=== PATIENT | male | born 1960 | race Hispanic/Latino ===

== ENCOUNTER 2017-01-14 01:03 | Inpatient (IN) | payer MEDICARE, MEDICAID ==
[2017-01-14 01:04] VITALS: BMI 51.1
--- NOTE | 2017-01-14 01:49 | ED PDOC ---
HPI: Male Pain Time Seen by Provider: 01/14/17 01:11 Chief Complaint (Nursing): Abdominal Pain Chief Complaint (Provider): Dysuria History Per: Patient History/Exam Limitations: no limitations Onset/Duration Of Symptoms: Days (x3) Current Symptoms Are (Timing): Still Present Quality Of Discomfort: "Pain" Associated Symptoms: Chest Pain, Urinary Symptoms (urinary urgency), Other (SOB) . denies: Nausea, Vomiting, Diarrhea Additional Complaint(s): 56 year old male brought in by EMS presents to ED with complaints of dysuria x3 days and a past medical history of COPD, CHF, HTN, morbid obesity, chronic DVT, sleep apnea, and gout. (+) lower abdominal pain, urinary urgency, left sided chest pain, and SOB. (-) nausea, vomiting, or diarrhea. PCP: OMARI Past Medical History Reviewed: Historical Data, Nursing Documentation, Vital Signs Vital Signs: Last Vital Signs Temp 98.0 F 01/14/17 01:09 Pulse 92 H 01/14/17 01:09 Resp 16 01/14/17 01:09 BP Pulse Ox 98 01/14/17 01:09 - Medical History PMH: Asthma, Atrial Fibrillation, CAD, CHF, COPD, Deep Vein Thrombosis, Fractures, Pulmonary Embolism, Sleep Apnea Denies: No Chronic Diseases, Arthritis, HIV, HTN, Hypercholesterolemia, Hypothyroidism, Chronic Kidney Disease, Rheumatoid Arthritis - Surgical History Surgical History: CABG, Coronary Stent - Family History Family History: States: No Known Family Hx - Social History Current smoker - smoking cessation education provided: No Ex-Smoker (has not smoked in the last 12 months): No Alcohol: None Drugs: Denies - Immunization History Hx Tetanus Toxoid Vaccination: No Hx Influenza Vaccination: No Hx Pneumococcal Vaccination: No - Home Medications Home Medications: Ambulatory Orders Medication Instructions Recorded Albuterol 0.083% [Albuterol 0.083% 3 ml PO QID 01/14/17 Inhal Valeria (2.5 mg/3 ml) UD] Albuterol Sulfate [Proair 2 puff PO Q6 PRN 01/14/17 Respiclick] Allopurinol [Zyloprim] 100 mg PO DAILY 01/14/17 Aspirin [Aspirin] 81 mg PO DAILY 01/14/17 Bisoprolol [Zebeta] 10 mg PO DAILY 01/14/17 Clopidogrel [Plavix] 75 mg PO DAILY 01/14/17 Furosemide [Lasix] 40 mg PO DAILY 01/14/17 Furosemide [Lasix] 80 mg PO DAILY 01/14/17 Lisinopril [Zestril] 5 mg PO DAILY 01/14/17 Spironolactone [Aldactone] 25 mg PO BID 01/14/17 Tiotropium [place] Inhaler 1 puff PO DAILY 01/14/17 [Spiriva Inhalation Handihaler Device] - Allergies Allergies/Adverse Reactions: Allergies Allergy/AdvReac Type Severity Reaction Status Date / Time Penicillins Allergy URTICARIA Verified 01/26/16 08:18 Review of Systems ROS Statement: Except As Marked, All Systems Reviewed And Found Negative Cardiovascular: Positive for: Chest Pain (left sided) Respiratory: Positive for: Shortness of Breath Gastrointestinal: Positive for: Abdominal Pain (lower abdominal pain). Negative for: Nausea, Vomiting, Diarrhea Genitourinary Male: Positive for: Dysuria, Other ((+) urinary urgency) Physical Exam - Reviewed Nursing Documentation Reviewed: Yes Vital Signs Reviewed: Yes - Physical Exam Appears: Positive for: Non-toxic, No Acute Distress (Obese) Skin: Positive for: Normal Color, Warm, Dry Eye Exam: Positive for: Normal appearance ENT: Positive for: Normal ENT Inspection Cardiovascular/Chest: Positive for: Regular Rate, Rhythm. Negative for: Murmur Respiratory: Positive for: Crackles (slight crackles at bilateral bases). Negative for: Normal Breath Sounds, Respiratory Distress Gastrointestinal/Abdominal: Positive for: Normal Exam, Soft, Other (obese; protuberant umbilical hernia). Negative for: Tenderness Back: Positive for: Normal Inspection Extremity: Positive for: Normal ROM, Swelling (2+ edema to bilateral lower extremities), Other ((+)B?L venous stasis ulcers noted). Negative for: Deformity Neurologic/Psych: Positive for: Alert, Oriented. Negative for: Motor/Sensory Deficits - Laboratory Results Result Diagrams: 01/14/17 01:55 01/14/17 02:23 - ECG ECG: Positive for: Interpreted By Me, Viewed By Me ECG Rhythm: Positive for: Atrial Fibrillation, Right Bundle Branch Block ( incomplete), Nonspecific Changes (nonspecific ST changes) Rate: 87 O2 Sat by Pulse Oximetry: 98 (RA) Pulse Ox Interpretation: Normal - Radiology X-Ray: Interpreted by Me, Viewed By Me X-Ray Interpretation: Cardiomegaly, Other (Mild pulmonary vascular congestion) Medical Decision Making Medical Decision Makin Initial impression: urinary symptoms and chest pain in setting of known multiple risk factors Initial plan: * EKG * EtOH serum * Labs * UDrug screen * Lipase * Trop I * Zofran Inj 4mg IVP * Urine Cx * UA * Re-eval 0245 Patient will be admitted under [facility]. 0400 Patient is a patient of Dr. Meera Mirza. Will not be admitted under [facility] practice, but under Dr. Torrez (hospitalist). Scribe Attestation: Documented by Louann Enriquez acting as a scribe for Elvis Ferreira MD. Scribe Attestation: All medical record entries made by the Scribe were at my direction and personally dictated by me. I have reviewed the chart and agree that the record accurately reflects my personal performance of the history, physical exam, medical decision making, and the department course for this patient. I have also personally directed, reviewed, and agree with the discharge instructions and disposition. Disposition - Clinical Impression Clinical Impression: Chest pain - Patient ED Disposition Is Patient to be Admitted: Yes Discussed With : Gonzales Torrez Doctor Will See Patient In The: Hospital Counseled Patient/Family Regarding: Studies Performed, Diagnosis - Disposition Disposition Time: 02:43 Condition: FAIR - Pt Status Changed To: Hospital Disposition Of: Observation - POA Present On Arrival: None
[2017-01-14 02:09] LABS: BASO # 0.1 K/uL (0.0-0.2); BASO % 0.4 % (0.0-2.0); EOS % 0.1 % (0.0-4.0); HEMOGLOBIN 16.1 g/dL (12.0-18.0); LYMPH # 0.2 K/uL (1.0-4.3); LYMPH % 1.2 % (20.0-40.0); MEAN CELL VOLUME 97.3 fl (80.0-94.0); MEAN CORPUSCULAR HEMOGLOBIN 31.3 pg (27.0-31.0); MEAN CORPUSCULAR HGB CONC 32.2 g/dL (33.0-37.0); MEAN PLATELET VOLUME 9.6 fl (7.2-11.7); MONO % 5.1 % (0.0-10.0); NEUT # 18.3 K/uL (1.8-7.0); NEUT % 93.2 % (50.0-75.0); NRBC % 0.3 % (0.0-0.0); PLATELET COUNT 105 K/uL (130-400); RBC 5.16 Mil/uL (4.40-5.90); WHITE BLOOD COUNT 19.6 K/uL (4.8-10.8)
[2017-01-14] MEDS ORDERED: Albuterol-Ipratrop 3 mg / 0.5 (3 ml) UD INH STA (02:37)
[2017-01-14 03:06] LABS: ALB/GLOB RATIO 1.1 (1.0-2.1); ALBUMIN 3.7 g/dL (3.5-5.0)
[2017-01-14 03:37] LABS: TROPONIN I 0.046 ng/mL (0.00-0.120)
--- NOTE | 2017-01-14 04:06 | CP.PCM.HP ---
History of Present Illness - History of Present Illness History of Present Illness: CC: Chest pain This is a 56 y/o M with Mhx of known CAD, PVD, systolic CHF (EF: 25-35% in 2014), A-Fib, COPD, DVT/PE, and gout who presents to the hospital today with worsening SSCP radiating to R arm with some numbness/tingling, worsening SOB, and ?dysuria. States he always has SOB, but developed this CP this afternoon and it has gotten worse. Also states he has had 'foul smelling' and 'bloody' urine for days. Denies f/c/n/v/d. Rather poor historian otherwise. c/o diffuse itching, and c/o some swelling in his legs. 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 Fib with RVR, DVT x 2, s/p IVC filter placement in 2012, PE in the past, gout SHx: CABG, right femoral stent 2013, coronary stent placement 2010, IVC filter placement 2012 Allergies: PCN Medications: as per med rec Family Hx: Patient provides no relevant findings on review Social Hx: lives with family, 1 ppd tobacco x > 40 years, occ EtOH, regular MJ Present on Admission - Present on Admission Any Indicators Present on Admission: No Past Patient History - Infectious Disease Hx of Infectious Diseases: None - Past Medical History & Family History Past Medical History?: Yes - Past Social History Alcohol: None Drugs: Denies - CARDIAC Hx Atrial Fibrillation: Yes Hx Congestive Heart Failure: Yes Hx Hypercholesterolemia: No Hx Hypertension: No - PULMONARY Hx Asthma: Yes Hx Chronic Obstructive Pulmonary Disease (COPD): Yes Hx Pulmonary Embolism: Yes Hx Sleep Apnea: Yes - NEUROLOGICAL HX Cerebrovascular Accident: No - HEENT Hx HEENT Problems: No - RENAL Hx Chronic Kidney Disease: No - ENDOCRINE/METABOLIC Hx Hypothyroidism: No - HEMATOLOGICAL/ONCOLOGICAL Hx Human Immunodeficiency Virus (HIV): No - INTEGUMENTARY Hx Dermatological Problems: No - MUSCULOSKELETAL/RHEUMATOLOGICAL Hx Arthritis: No Hx Fractures: Yes Hx Rheumatoid Arthritis: No - GASTROINTESTINAL Hx Gastrointestinal Disorders: Yes (hernia) Other/Comment: Hernia - GENITOURINARY/GYNECOLOGICAL Hx Genitourinary Disorders: No - PSYCHIATRIC Hx Psychophysiologic Disorder: No Hx Substance Use: No - SURGICAL HISTORY Hx Coronary Artery Bypass Graft: Yes Hx Coronary Stent: Yes - ANESTHESIA Hx Anesthesia: Yes Hx Anesthesia Reactions: No Hx Malignant Hyperthermia: No Meds Allergies/Adverse Reactions: Allergies Allergy/AdvReac Type Severity Reaction Status Date / Time Penicillins Allergy URTICARIA Verified 01/26/16 08:18 Physical Exam - Constitutional Appears: Older Than Stated Age, Chronically Ill - Head Exam Head Exam: ATRAUMATIC, NORMOCEPHALIC - Eye Exam Eye Exam: EOMI, PERRL - ENT Exam ENT Exam: Mucous Membranes Moist - Neck Exam Neck exam: Positive for: Full Rom - Respiratory Exam Respiratory Exam: NORMAL BREATHING PATTERN Additional comments: very distant breath sounds - Cardiovascular Exam Cardiovascular Exam: Irregular Rhythm, +S1, +S2 - GI/Abdominal Exam GI & Abdominal Exam: Normal Bowel Sounds, Soft Additional comments: pronounced umbilical hernia - Extremities Exam Additional comments: Some b/l pedal edema (2+), chronic skin changes b/l LE - Neurological Exam Neurological exam: Alert, CN II-XII Intact, Oriented x3 - Psychiatric Exam Psychiatric exam: Normal Affect, Normal Mood - Skin Skin Exam: Dry, Warm Additional comments: scaling and excoriations all across chest, arms, back Results - Vital Signs Recent Vital Signs: Last Vital Signs Temp 98 F 01/14/17 03:41 Pulse 87 01/14/17 04:04 Resp 16 01/14/17 01:09 BP Pulse Ox 98 01/14/17 04:04 - Labs Result Diagrams: 01/14/17 01:55 01/14/17 02:23 - EKG Data EKG Interpreted by: Myself - EKG Data EKG comments: A fib, poor quality EKG; no obvious CHIN/D - Imaging and Cardiology Chest x-ray Status: Image reviewed by me (Possible vascular congestion, sternotomy wires) Assessment & Plan (1) Chest pain Assessment and Plan: 56 y/o male with known cardiac problems among other medical issues who comes in with CP/SOB. 1) CP/CAD -- r/o cardiac etiology -Tele/obs -Serial trops -AM EKG -Echo in AM -Consult Dr. Roberts (Cardiology) -Cont ASA, Plavix, SLNG, b-jean carlos 2) CHF -- As above, Lasix 40 mg IV x 1 now 3) A fib -- continue b-jean carlos, patient not on any anticoagulation currently 4) Elevated WC -- UA/Cx pending, no clear source of infection at this time; pending cultures; no antibiotics for now 5) AoCKI -- Appears to have Cr in mid-1s, now elevated; may be 2/2 vol overload -UA, Lytes, Cr -Lasix 40 mg IV x 1 now -Hold Yonathan/Arb and other diuretics for now 6) HTN -- Cont home medications 7) DVT PPx -- SQ Heparin Status: Acute (2) CAD (coronary artery disease) Status: Chronic (3) Atrial fibrillation Status: Chronic (4) Acute on chronic kidney failure Status: Acute (5) Elevated white blood cell count Status: Acute (6) CHF (congestive heart failure) Status: Chronic Priority: High (7) Hypertension Status: Chronic (8) Thrombocytopenia Status: Acute (9) Morbid obesity with BMI of 50.0-59.9, adult Status: Chronic (10) DVT prophylaxis Status: Acute
[2017-01-14 04:22] LABS: BANDS 3 % (0-2); LYMPHOCYTE 1 % (20-50); MONOCYTE 8 % (0-10); NEUTROPHIL 88 % (42-75); TOTAL CELLS COUNTED 100
[2017-01-14 04:23] LABS: ANISOCYTOSIS SLIGHT; PLATELET ESTIMATE MARKEDLY DECREASED (NORMAL); TEARDROP CELLS SLIGHT
[2017-01-14 04:24] LABS: ACANTHOCYTES SLIGHT; LARGE PLATELETS PRESENT
[2017-01-14] MEDS ORDERED: ALBUTEROL SULFATE PO PRN (04:38)
[2017-01-14] MEDS ORDERED: Albuterol HFA 90 mcg/actuation (8 g) INH PRN (04:55)
[2017-01-14] MEDS ORDERED: levoFLOXacin 500 mg in D5W 500 MG/100 ML BAG IVPB STA (05:24)
[2017-01-14] MEDS ORDERED: Sodium Chloride 0.9% 250 ML IV SCH (05:30)
[2017-01-14] MEDS: Hydrocortisone 1% Oint TOP SCH ×2 (08:55→16:32)
[2017-01-14] MEDS: Tiotropium 18 mcg Cap For Inhalation INH SCH (08:55)
[2017-01-14 10:52] LABS: TROPONIN I 0.043 ng/mL (0.00-0.120)
--- NOTE | 2017-01-14 11:13 | CP.PCM.CON ---
History of Present Illness - History of Present Illness History of Present Illness: This patient who is 56 years old I was called to see him for abnormal kidney function. Patient was admitted with atypical chest pain also he has multitude of complicated past medical history related to multiple cardiac stenting and also stenting in the right leg with filter placement peripherovascular disease and right foot ulcer. Patient is being follow-up by wound care twice a week with long history of hypertension and obesity pulmonary emboli among other things MHx: CAD/PVD, CHF, A. Fib with RVR, DVT x 2, s/p IVC filter placement in 2012, PE in the past, gout , right femoral stent 2013, coronary stent placement 2010, social history not contributary Review of Systems - Constitutional Constitutional: absent: Chills - EENT Nose/Mouth/Throat: absent: Nasal Congestion - Cardiovascular Cardiovascular: Chest Pain, Dyspnea, Leg Edema - Respiratory Respiratory: Dyspnea on Exertion - Gastrointestinal Gastrointestinal: absent: Abdominal Pain - Genitourinary Genitourinary: Dysuria, Nocturia - Musculoskeletal Musculoskeletal: Abnormal Gait - Neurological Neurological: As Per HPI Past Patient History - Infectious Disease Hx of Infectious Diseases: None - Past Medical History & Family History Past Medical History?: Yes - Past Social History Smoking Status: Heavy Smoker > 10 Cigarettes Daily - CARDIAC Hx Atrial Fibrillation: Yes Hx Congestive Heart Failure: Yes Hx Hypercholesterolemia: No Hx Hypertension: No - PULMONARY Hx Asthma: Yes Hx Chronic Obstructive Pulmonary Disease (COPD): Yes Hx Pulmonary Embolism: Yes Hx Sleep Apnea: Yes - NEUROLOGICAL HX Cerebrovascular Accident: No - HEENT Hx HEENT Problems: No - RENAL Hx Chronic Kidney Disease: No - ENDOCRINE/METABOLIC Hx Hypothyroidism: No - HEMATOLOGICAL/ONCOLOGICAL Hx Human Immunodeficiency Virus (HIV): No - INTEGUMENTARY Hx Dermatological Problems: No - MUSCULOSKELETAL/RHEUMATOLOGICAL Hx Falls: Yes Hx Unsteady Gait: Yes - GASTROINTESTINAL Hx Gastrointestinal Disorders: Yes (hernia) Other/Comment: Hernia - GENITOURINARY/GYNECOLOGICAL Hx Genitourinary Disorders: No - PSYCHIATRIC Hx Substance Use: Yes (use marijuana) - SURGICAL HISTORY Hx Coronary Artery Bypass Graft: Yes Hx Coronary Stent: Yes - ANESTHESIA Hx Anesthesia: Yes Hx Anesthesia Reactions: No Hx Malignant Hyperthermia: No Meds Allergies/Adverse Reactions: Allergies Allergy/AdvReac Type Severity Reaction Status Date / Time Penicillins Allergy URTICARIA Verified 01/26/16 08:18 - Medications Medications: Current Medications Acetaminophen (Tylenol 325mg Tab) 650 mg PO Q6 PRN PRN Reason: Pain, Mild (1-3) Acetaminophen (Tylenol 325mg Tab) 650 mg PO Q6 PRN PRN Reason: Fever >100.4 F Albuterol (Ventolin Hfa 90 Mcg/Actuation (8 G)) 2 puff INH RQ6 PRN PRN Reason: Shortness of Breath Allopurinol (Zyloprim) 100 mg PO DAILY [facility] Last Admin: 01/14/17 08:56 Dose: 100 mg Aspirin (Aspirin) 325 mg PO DAILY [facility] Last Admin: 01/14/17 09:00 Dose: 325 mg Clopidogrel Bisulfate (Plavix) 75 mg PO DAILY [facility] Last Admin: 01/14/17 08:55 Dose: 75 mg Heparin Sodium (Porcine) (Heparin) 5,000 units SC Q8 [facility] PRN Reason: Protocol Last Admin: 01/14/17 08:55 Dose: 5,000 units Hydrocortisone (Cortizone 1% Oint) 1 applic TOP BID [facility] Last Admin: 01/14/17 08:55 Dose: 1 appl Sodium Chloride (Sodium Chloride 0.9%) 250 mls @ 250 mls/hr IV .Q1H [facility] Last Admin: 01/14/17 05:33 Dose: 250 mls/hr Nitroglycerin (Nitrostat Sl Tab) 0.4 mg SL Q5M PRN PRN Reason: chest pain Tiotropium [place] (Spiriva) 18 mcg INH DAILY [facility] Last Admin: 01/14/17 08:55 Dose: 18 mcg Physical Exam - Constitutional Appears: No Acute Distress Additional comments: extremely obese - ENT Exam ENT Exam: Mucous Membranes Moist - Respiratory Exam Respiratory Exam: Rhonchi. absent: Chest Wall Tenderness - Cardiovascular Exam Cardiovascular Exam: absent: JVD, Rubs - GI/Abdominal Exam GI & Abdominal Exam: Distended - Extremities Exam Extremities exam: Negative for: calf tenderness - Back Exam Back exam: absent: CVA tenderness (L), CVA tenderness (R) - Neurological Exam Neurological exam: Alert Results - Vital Signs Recent Vital Signs: Last Vital Signs Temp 98.3 F 01/14/17 08:00 Pulse 99 H 01/14/17 08:00 Resp 20 01/14/17 08:00 BP 116/44 L 01/14/17 08:00 Pulse Ox 95 01/14/17 08:00 - Labs Result Diagrams: 01/14/17 01:55 01/14/17 02:23 Labs: Laboratory Results - last 24 hr 01/14/17 01/14/17 04:11 09:55 Lactic Acid 2.8 H Troponin I 0.0430 TSH 3rd Generation 2.57 Assessment & Plan (1) Acute on chronic kidney failure Assessment and Plan: Rule out acute kidney injury superimposed on perhaps chronic kidney disease. Also patient complaining of dysuria and burning sensation to rule out urinary tract infection My recommendation to get stat urinalysis and Spot urine for protein and creatinine to see if he has a proteinuria. Urine culture because of the symptomatology We will cross adductor ultrasound of the kidney if possible however because see his obesity may be difficult to do so We will keep monitoring we will get serum PTH level and phosphorus Status: Acute (2) Chest pain Status: Acute
[2017-01-14 11:27] LABS: SQUAMOUS EPITHIAL 1 /hpf (0-5); URINE BACTERIA RARE (<OCC); URINE BILIRUBIN NEGATIVE (NEGATIVE); URINE BLOOD NEGATIVE (NEGATIVE); URINE CLARITY SLIGHTY-CLOUDY (Clear); URINE COLOR AMBER (YELLOW); URINE GLUCOSE (UA) NEG (Normal); URINE LEUKOCYTE ESTERASE NEG Leu/uL (Negative); URINE NITRATE NEGATIVE (NEGATIVE); URINE PROTEIN 30 mg/dL (NEGATIVE)
[2017-01-14 11:51] LABS: BARBITURATES, UR NEGATIVE (NEGATIVE); BENZODIAZEPINES, UR NEGATIVE (NEGATIVE); OPIATES, UR POSITIVE (NEGATIVE); PHENCYCLIDINE, UR NEGATIVE (NEGATIVE)
--- NOTE | 2017-01-14 12:45 | RAD ---
HISTORY: Chest pain. COMPARISON: 01/30/2016 FINDINGS: LUNGS: No active pulmonary disease. PLEURA: No significant pleural effusion identified, no pneumothorax apparent. CARDIOVASCULAR: Cardiomegaly without acute congestive heart failure OSSEOUS STRUCTURES: No significant abnormalities. VISUALIZED UPPER ABDOMEN: Normal. OTHER FINDINGS: None. IMPRESSION: No active disease. No significant interval change compared to the prior examination(s).
--- NOTE | 2017-01-14 15:08 | CP.PCM.CON ---
History of Present Illness - History of Present Illness History of Present Illness: 56 y/o male with PMHx of CAD/PVD, CHF, A. Fib with RVR, DVT x 2, s/p IVC filter placement in 2012, PE, gout seen at bedside complaining of severe pain in his feet b/l. Pt states that he has ulceration on his feet and ankle. Pt agrees to having these ulcers for very long time. Pt states that his feet feel inflamed and they are very painful. Pt states that he came to the hospital because he was having hard time breathing and had chest pain. Pt states that he has a wound care nurse come home to dress the wounds daily. Pt states that he last saw his rn international Dr. Parr about a year ago. Pt states that he has really bad circulation in his feet and is currently seeing a doctor for it. Pt denies of any recent F/N/V/C. PMHx: CAD/PVD, CHF, A. Fib with RVR, DVT x 2, s/p IVC filter placement in 2012, PE in the past, gout PSHx: CABG, right femoral stent 2013, coronary stent placement 2010, IVC filter placement 2012 SH: 1 PPD tobacco for more than 40 years, regular marijuana, occasional EtOH Allergies: PCN Review of Systems - Constitutional Constitutional: As Per HPI Past Patient History - Infectious Disease Hx of Infectious Diseases: None - Past Medical History & Family History Past Medical History?: Yes - Past Social History Smoking Status: Heavy Smoker > 10 Cigarettes Daily - CARDIAC Hx Atrial Fibrillation: Yes Hx Congestive Heart Failure: Yes Hx Hypercholesterolemia: No Hx Hypertension: No - PULMONARY Hx Asthma: Yes Hx Chronic Obstructive Pulmonary Disease (COPD): Yes Hx Pulmonary Embolism: Yes Hx Sleep Apnea: Yes - NEUROLOGICAL HX Cerebrovascular Accident: No - HEENT Hx HEENT Problems: No - RENAL Hx Chronic Kidney Disease: No - ENDOCRINE/METABOLIC Hx Hypothyroidism: No - HEMATOLOGICAL/ONCOLOGICAL Hx Human Immunodeficiency Virus (HIV): No - INTEGUMENTARY Hx Dermatological Problems: No - MUSCULOSKELETAL/RHEUMATOLOGICAL Hx Falls: Yes Hx Unsteady Gait: Yes - GASTROINTESTINAL Hx Gastrointestinal Disorders: Yes (hernia) Other/Comment: Hernia - GENITOURINARY/GYNECOLOGICAL Hx Genitourinary Disorders: No - PSYCHIATRIC Hx Substance Use: Yes (use marijuana) - SURGICAL HISTORY Hx Coronary Artery Bypass Graft: Yes Hx Coronary Stent: Yes - ANESTHESIA Hx Anesthesia: Yes Hx Anesthesia Reactions: No Hx Malignant Hyperthermia: No Meds Allergies/Adverse Reactions: Allergies Allergy/AdvReac Type Severity Reaction Status Date / Time Penicillins Allergy URTICARIA Verified 01/26/16 08:18 - Medications Medications: Current Medications Acetaminophen (Tylenol 325mg Tab) 650 mg PO Q6 PRN PRN Reason: Pain, Mild (1-3) Last Admin: 01/14/17 13:23 Dose: 650 mg Acetaminophen (Tylenol 325mg Tab) 650 mg PO Q6 PRN PRN Reason: Fever >100.4 F Albuterol (Ventolin Hfa 90 Mcg/Actuation (8 G)) 2 puff INH RQ6 PRN PRN Reason: Shortness of Breath Last Admin: 01/14/17 12:32 Dose: 2 puff Allopurinol (Zyloprim) 100 mg PO DAILY [facility] Last Admin: 01/14/17 08:56 Dose: 100 mg Aspirin (Aspirin) 325 mg PO DAILY [facility] Last Admin: 01/14/17 09:00 Dose: 325 mg Clopidogrel Bisulfate (Plavix) 75 mg PO DAILY [facility] Last Admin: 01/14/17 08:55 Dose: 75 mg Collagenase (Santyl) 1 applic TOP DAILY [facility] Heparin Sodium (Porcine) (Heparin) 5,000 units SC Q8 FACUNDO PRN Reason: Protocol Last Admin: 01/14/17 08:55 Dose: 5,000 units Hydrocortisone (Cortizone 1% Oint) 1 applic TOP BID [facility] Last Admin: 01/14/17 08:55 Dose: 1 appl Sodium Chloride (Sodium Chloride 0.9%) 250 mls @ 250 mls/hr IV .Q1H [facility] Last Admin: 01/14/17 05:33 Dose: 250 mls/hr Nitroglycerin (Nitrostat Sl Tab) 0.4 mg SL Q5M PRN PRN Reason: chest pain Tiotropium [place] (Spiriva) 18 mcg INH DAILY [facility] Last Admin: 01/14/17 08:55 Dose: 18 mcg Physical Exam - Constitutional Appears: Well, Toxic, No Acute Distress - Extremities Exam Additional comments: VASC: DP/PT pulses are non-palpable, [employer]OFESSIONAL: > 4 sec to all digits, TG: cool to cold, non-pitting edema with skin tenting noted to distal leg and feet b/l DERM: superficial ulcer on the dorsum of the R foot as well as on the posterior medial aspect of the R heel and ankle, no active drainage, no purulence, no malodor, no probe to bone, no undermining, no tunneling. erythema noted on distal leg as well as dorsum of the foot b/l NEURO: Protective sensation grossly diminished ORTHO: pain on active ROM of the b/l extremity - Neurological Exam Neurological exam: Alert, Oriented x3 - Psychiatric Exam Psychiatric exam: Normal Affect, Normal Mood Results - Vital Signs Recent Vital Signs: Last Vital Signs Temp 98.7 F 01/14/17 12:14 Pulse 80 01/14/17 12:14 Resp 18 01/14/17 12:14 BP 94/64 L 01/14/17 12:14 Pulse Ox 93 L 01/14/17 12:46 - Labs Result Diagrams: 01/14/17 01:55 01/14/17 02:23 Labs: Laboratory Results - last 24 hr 01/14/17 01/14/17 01/14/17 04:11 06:00 09:55 Lactic Acid 2.8 H Phosphorus 4.6 H Troponin I 0.0430 TSH 3rd Generation 2.57 Urine Color Urine Clarity Urine pH Ur Specific [place] Urine Protein Urine Glucose (UA) Urine Ketones Urine Blood Urine Nitrate Urine Bilirubin Urine Urobilinogen Ur Leukocyte Esterase Urine RBC (Auto) Urine Microscopic WBC Ur Squamous Epith Cells Urine Bacteria Hyaline Casts Ur Random Creatinine U Random Total Protein Ur Random Sodium Ur Random Potassium Urine Opiates Screen Urine Methadone Screen Ur Barbiturates Screen Ur Phencyclidine Scrn Ur Amphetamines Screen U Benzodiazepines Scrn U Oth Cocaine Metabols U Cannabinoids Screen 01/14/17 01/14/17 01/14/17 11:00 11:00 11:00 Lactic Acid Phosphorus Troponin I TSH 3rd Generation Urine Color Urine Clarity Urine pH Ur Specific [place] Urine Protein Urine Glucose (UA) Urine Ketones Urine Blood Urine Nitrate Urine Bilirubin Urine Urobilinogen Ur Leukocyte Esterase Urine RBC (Auto) Urine Microscopic WBC Ur Squamous Epith Cells Urine Bacteria Hyaline Casts Ur Random Creatinine 142.2 U Random Total Protein Ur Random Sodium 46 Ur Random Potassium 49.5 Urine Opiates Screen Positive H Urine Methadone Screen Negative Ur Barbiturates Screen Negative Ur Phencyclidine Scrn Negative Ur Amphetamines Screen Negative U Benzodiazepines Scrn Negative U Oth Cocaine Metabols Negative U Cannabinoids Screen Positive H 01/14/17 01/14/17 11:00 11:00 Lactic Acid Phosphorus Troponin I TSH 3rd Generation Urine Color [place] Urine Clarity Slighty-cloudy Urine pH 5.0 Ur Specific [place] 1.014 Urine Protein 30 Urine Glucose (UA) Neg Urine Ketones Negative Urine Blood Negative Urine Nitrate Negative Urine Bilirubin Negative Urine Urobilinogen 4.0 Ur Leukocyte Esterase Neg Urine RBC (Auto) 8 H Urine Microscopic WBC 5 Ur Squamous Epith Cells 1 Urine Bacteria Rare Hyaline Casts 3-5 H Ur Random Creatinine U Random Total Protein 52.0 H Ur Random Sodium Ur Random Potassium Urine Opiates Screen Urine Methadone Screen Ur Barbiturates Screen Ur Phencyclidine Scrn Ur Amphetamines Screen U Benzodiazepines Scrn U Oth Cocaine Metabols U Cannabinoids Screen Assessment & Plan - Assessment and Plan (Free Text) Assessment: 56 y/o male seen at bedside for pain in his legs and feet secondary to superficial ulcer and PVD Plan: Pt evaluated and chart reviewed Pt discussed in details with attending Dr. Parr Labs and vitals reviewed (afebrile, WBC @ 19.6) ID consult placed for IV abx recommendations Dressing changed using adaptic, DSD, kurlix Rx: Torsten ordered Plan to take wound culture during next dressing change due to painful procedure Podiatry to follow while patient is in house Thank you for the podiatry consult - Date & Time Date: 01/14/17 Time: 15:17
--- NOTE | 2017-01-14 17:58 | CARD ---
APPROVED REPORT EKG Measurement Heart [id number] <Conclusion> Atrial fibrillation Incomplete right bundle branch block Possible Right ventricular hypertrophy Nonspecific ST abnormality Abnormal ECG
--- NOTE | 2017-01-14 20:06 | CP.PCM.CON ---
History of Present Illness - History of Present Illness History of Present Illness: I was asked to evalaute patient by the primary team. Patient is a 56 year old female with a history of HTN, CAD, morbid obesity, PAD who presents with fever and weakness. The patient states symptoms began one week ago. He has noted pain of the feet The patient denies chest pain. The patient is essentially homebound, and has noted that his blood pressue has been low. Review of Systems - Constitutional Constitutional: Fatigue, Fever, Lethargy, Weakness - EENT Eyes: absent: As Per HPI, Blind Spots, Blurred Vision, Change in Vision, Decreased Night Vision, Diplopia, Discharge, Dry Eye, Exophthalmos, Floaters, Irritation, Itchy Eyes, Loss of Peripheral Vision, Pain, Photophobia, Requires Corrective Lenses, Sees Flashes, Spots in Vision, Tunnel Vision, Other Visual Disturbances, Loss of Vision, Other Ears: absent: As Per HPI, Decreased Hearing, Ear Discharge, Ear Pain, Tinnitus, Abnormal Hearing, Disequilibrium, Dizziness, Other Nose/Mouth/Throat: absent: As Per HPI, Epistaxis, Nasal Congestion, Nasal Discharge, Nasal Obstruction, Nasal Trauma, Nose Pain, Post Nasal Drip, Sinus Pain, Sinus Pressure, Bleeding Gums, Change in Voice, Dental Pain, Dry Mouth, Dysphagia, Halitosis, Hoarsness, Lip Swelling, Mouth Lesions, Mouth Pain, Odynophagia, Sore Throat, Throat Swelling, Tongue Swelling, Facial Pain, Neck Pain, Neck Mass, Other - Cardiovascular Cardiovascular: Leg Ulcers, Lightheadedness, Pedal Edema - Respiratory Respiratory: absent: As Per HPI, Cough, Dyspnea, Hemoptysis, Dyspnea on Exertion , Wheezing, Snoring, Stridor, Pain on Inspiration, Chest Congestion, Excessive Mucous Production, Change in Mucous Color, Pain with Coughing, Other - Gastrointestinal Gastrointestinal: absent: As Per HPI, Abdominal Pain, Belching, Bloating, Change in Bowel Habits, Change in Stool Character, Coffee Ground Emesis, Constipation, Cramping, Diarrhea, Dyspepsia, Dysphagia, Early Satiety, Excessive Flatus, Fecal Incontinence, Heartburn, Hematemesis, Hematochezia, Loose Stools, Melena, Nausea, Odynophagia, Temesmus, Vomiting, Other - Genitourinary Genitourinary: absent: As Per HPI, Change in Urinary Stream, Difficulty Urinating, Dysuria, Flank Pain, Hematuria, Pyuria, Nocturia, Urinary Incontinence, Urinary Frequency, Urinary Hesitance, Urinary Urgency, Voiding Freq/Small Amts, Freq UTI, Hx Renal/Bladder Calculi, Hx /Renal Surgery, Bladder Distension, Other - Musculoskeletal Musculoskeletal: absent: As Per HPI, Abnormal Gait, Arthralgias, Atrophy, Back Pain, Deformity, Joint Swelling, Limited Range of Motion, Loss of Height, Muscle Cramps, Muscle Weakness, Myalgias, Neck Pain, Numbness, Radiating Pain into Limb, Stiffness, Tingling, Other - Integumentary Integumentary: Skin Ulcer - Neurological Neurological: absent: As Per HPI, Abnormal Gait, Abnormal Hearing, Abnormal Movements, Abnormal Speech, Behavioral Changes, Burning Sensations, Confusion, Convulsions, Disequilibrium, Dizziness, Numbness, Focal Weakness, Frequent Falls , Headaches, Lack of Coordination, Loss of Vision, Memory Loss, Paresthesias, Radicular Pain, Restless Legs, Sensory Deficit, Syncope, Tingling, Tremor, Vertigo, Weakness, Other Visual Disturbances, Other - Psychiatric Psychiatric: absent: As Per HPI, Abnormal Sleep Pattern, Anhedonia, Anxiety, Auditory Hallucinations, Behavioral Changes, Change in Appetite, Change in Libido, Confusion, Depression, Difficulty Concentrating, Hallucinations, Homicidal Ideation, Hopelessness, Irritability, Memory Loss, Mood Swings, Panic Attacks, Paranoia, Suicidal Ideation, Visual Hallucinations, Tactile Hallucinations, Other - Endocrine Endocrine: absent: As Per HPI, Change in Body Appearance, Change in Libido, Cold Intolorance, Deepening of Voice, Excessive Sweating, Fatigue, Flushing, Heat Intolorance, Increase in Ring/Shoe/Hat Size, Palpitations, Polydipsia, Polyphagia, Polyuria, Other - Hematologic/Lymphatic Hematologic: absent: As Per HPI, Easy Bleeding, Easy Bruising, Lymphadenopathy, Other Past Patient History - Infectious Disease Hx of Infectious Diseases: None - Past Medical History & Family History Past Medical History?: Yes - Past Social History Smoking Status: Heavy Smoker > 10 Cigarettes Daily - CARDIAC Hx Atrial Fibrillation: Yes Hx Congestive Heart Failure: Yes Hx Hypercholesterolemia: No Hx Hypertension: No - PULMONARY Hx Asthma: Yes Hx Chronic Obstructive Pulmonary Disease (COPD): Yes Hx Pulmonary Embolism: Yes Hx Sleep Apnea: Yes - NEUROLOGICAL HX Cerebrovascular Accident: No - HEENT Hx HEENT Problems: No - RENAL Hx Chronic Kidney Disease: No - ENDOCRINE/METABOLIC Hx Hypothyroidism: No - HEMATOLOGICAL/ONCOLOGICAL Hx Human Immunodeficiency Virus (HIV): No - INTEGUMENTARY Hx Dermatological Problems: No - MUSCULOSKELETAL/RHEUMATOLOGICAL Hx Falls: Yes Hx Unsteady Gait: Yes - GASTROINTESTINAL Hx Gastrointestinal Disorders: Yes (hernia) Other/Comment: Hernia - GENITOURINARY/GYNECOLOGICAL Hx Genitourinary Disorders: No - PSYCHIATRIC Hx Substance Use: Yes (use marijuana) - SURGICAL HISTORY Hx Coronary Artery Bypass Graft: Yes Hx Coronary Stent: Yes - ANESTHESIA Hx Anesthesia: Yes Hx Anesthesia Reactions: No Hx Malignant Hyperthermia: No Meds Allergies/Adverse Reactions: Allergies Allergy/AdvReac Type Severity Reaction Status Date / Time Penicillins Allergy URTICARIA Verified 01/26/16 08:18 - Medications Medications: Current Medications Acetaminophen (Tylenol 325mg Tab) 650 mg PO Q6 PRN PRN Reason: Pain, Mild (1-3) Last Admin: 01/14/17 13:23 Dose: 650 mg Acetaminophen (Tylenol 325mg Tab) 650 mg PO Q6 PRN PRN Reason: Fever >100.4 F Albuterol (Ventolin Hfa 90 Mcg/Actuation (8 G)) 2 puff INH RQ6 PRN PRN Reason: Shortness of Breath Last Admin: 01/14/17 12:32 Dose: 2 puff Allopurinol (Zyloprim) 100 mg PO DAILY [facility] Last Admin: 01/14/17 08:56 Dose: 100 mg Aspirin (Aspirin) 325 mg PO DAILY [facility] Last Admin: 01/14/17 09:00 Dose: 325 mg Clopidogrel Bisulfate (Plavix) 75 mg PO DAILY [facility] Last Admin: 01/14/17 08:55 Dose: 75 mg Collagenase (Santyl) 1 applic TOP DAILY [facility] Heparin Sodium (Porcine) (Heparin) 5,000 units SC Q8 FACUNDO PRN Reason: Protocol Last Admin: 01/14/17 16:33 Dose: 5,000 units Hydrocortisone (Cortizone 1% Oint) 1 applic TOP BID [facility] Last Admin: 01/14/17 16:32 Dose: 1 appl Sodium Chloride (Sodium Chloride 0.9%) 250 mls @ 250 mls/hr IV .Q1H [facility] Last Admin: 01/14/17 05:33 Dose: 250 mls/hr Clindamycin Phosphate 600 mg/ (Sodium Chloride) 54 mls @ 54 mls/hr IVPB Q8 [facility] Last Admin: 01/14/17 16:35 Dose: 54 mls/hr Nitroglycerin (Nitrostat Sl Tab) 0.4 mg SL Q5M PRN PRN Reason: chest pain Tiotropium [place] (Spiriva) 18 mcg INH DAILY [facility] Last Admin: 01/14/17 08:55 Dose: 18 mcg Physical Exam - Constitutional Appears: Chronically Ill - Eye Exam Eye Exam: Normal appearance - ENT Exam ENT Exam: Mucous Membranes Moist - Neck Exam Neck exam: Positive for: Full Rom - Respiratory Exam Respiratory Exam: Decreased Breath Sounds - Cardiovascular Exam Cardiovascular Exam: REGULAR RHYTHM - GI/Abdominal Exam GI & Abdominal Exam: Normal Bowel Sounds - Rectal Exam Rectal Exam: Deferred - Extremities Exam Extremities exam: Positive for: pedal edema, tenderness - Back Exam Back exam: NORMAL INSPECTION - Neurological Exam Neurological exam: Alert, Oriented x3 - Psychiatric Exam Psychiatric exam: Normal Affect - Skin Skin Exam: Normal Color Results - Vital Signs Recent Vital Signs: Last Vital Signs Temp 97.6 F 01/14/17 19:56 Pulse 92 H 01/14/17 19:56 Resp 20 01/14/17 19:56 BP 140/123 H 01/14/17 16:01 Pulse Ox 94 L 01/14/17 19:56 - Labs Result Diagrams: 01/15/17 06:30 01/15/17 06:30 Labs: Laboratory Results - last 24 hr 01/14/17 18:55 Troponin I 0.0700 - EKG Data EKG Interpreted by: Myself EKG shows normal: Sinus rhythm Assessment & Plan (1) Acute on chronic kidney failure Assessment and Plan: unclear if related to hypoperfusion or sepsis. Renal follow up Status: Acute (2) Chronic deep venous thrombosis Assessment and Plan: previously on chronic anticoagulant therapy Status: Acute (3) CAD (coronary artery disease) Assessment and Plan: no current angina Status: Chronic
--- NOTE | 2017-01-14 20:40 | CP.PCM.PN ---
Subjective - Date & Time of Evaluation Date of Evaluation: 01/14/17 Time of Evaluation: 20:38 - Subjective Subjective: I D NOTE PATIENT KNOWN TO ME HAVE ADDED GENTAMICIN TO RX FULL NOTE TO FOLLOW Objective - Vital Signs/Intake and Output Vital Signs (last 24 hours): Temp Pulse Resp BP Pulse Ox 97.6 F 92 H 20 140/123 H 94 L 01/14/17 19:56 01/14/17 19:56 01/14/17 19:56 01/14/17 16:01 01/14/17 19:56 - Medications Medications: Current Medications Acetaminophen (Tylenol 325mg Tab) 650 mg PO Q6 PRN PRN Reason: Pain, Mild (1-3) Last Admin: 01/14/17 13:23 Dose: 650 mg Acetaminophen (Tylenol 325mg Tab) 650 mg PO Q6 PRN PRN Reason: Fever >100.4 F Albuterol (Ventolin Hfa 90 Mcg/Actuation (8 G)) 2 puff INH RQ6 PRN PRN Reason: Shortness of Breath Last Admin: 01/14/17 12:32 Dose: 2 puff Allopurinol (Zyloprim) 100 mg PO DAILY [facility] Last Admin: 01/14/17 08:56 Dose: 100 mg Aspirin (Aspirin) 325 mg PO DAILY [facility] Last Admin: 01/14/17 09:00 Dose: 325 mg Clopidogrel Bisulfate (Plavix) 75 mg PO DAILY [facility] Last Admin: 01/14/17 08:55 Dose: 75 mg Collagenase (Santyl) 1 applic TOP DAILY [facility] Heparin Sodium (Porcine) (Heparin) 5,000 units SC Q8 FACUNDO PRN Reason: Protocol Last Admin: 01/14/17 16:33 Dose: 5,000 units Hydrocortisone (Cortizone 1% Oint) 1 applic TOP BID [facility] Last Admin: 01/14/17 16:32 Dose: 1 appl Sodium Chloride (Sodium Chloride 0.9%) 250 mls @ 250 mls/hr IV .Q1H [facility] Last Admin: 01/14/17 05:33 Dose: 250 mls/hr Clindamycin Phosphate 600 mg/ (Sodium Chloride) 54 mls @ 54 mls/hr IVPB Q8 [facility] Last Admin: 01/14/17 16:35 Dose: 54 mls/hr Gentamicin Sulfate/Sodium Chloride (Gentamicin 60mg/50ml Ns) 60 mg in 50 mls @ 50 mls/hr IVPB Q24H [facility] Nitroglycerin (Nitrostat Sl Tab) 0.4 mg SL Q5M PRN PRN Reason: chest pain Tiotropium [place] (Spiriva) 18 mcg INH DAILY [facility] Last Admin: 01/14/17 08:55 Dose: 18 mcg
[2017-01-14] MEDS ORDERED: Gentamicin 60mg/50ml NS 60 MG/50 ML BAG IVPB SCH (20:45)
[2017-01-14] MEDS ORDERED: Sodium Chloride 0.9% 1,000 ML IV SCH (21:15)
[2017-01-15] MEDS ORDERED: Albuterol 0.083% Inhal Sol (2.5 mg/3 mL) UD INH ONE (04:59)
[2017-01-15] MEDS ORDERED: Albuterol-Ipratrop 3 mg / 0.5 (3 ml) UD ONE (05:00)
[2017-01-15] MEDS ORDERED: Sodium Chloride 0.9% 500 ML IV ONE (05:09)
[2017-01-15] MEDS ORDERED: Albuterol 0.083% Inhal Sol (2.5 mg/3 mL) UD INH PRN (05:09)
--- NOTE | 2017-01-15 05:35 | PCM.RRTMUL ---
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 - Vital Signs Pulse Rate:: 87 I.Reason for FOREST PATROLMAN - A) Acute Change in Patient: (Select all that apply): Acute change in SBP below (dyspnea with BP of 70/40) - A) Initial Vital Signs: Blood Pressure: 70/30 Pulse Rate: 87 Respiratory Rate: 24 O2 Sat by Pulse Oximetry: 98 - B) Neurological Status (Select all that apply): Alert, Responsive, Oriented, Follows Commands - C) Respiratory Oxygen Delivery Method: Nasal Cannula @L/min (4/L min) - Constitutional Appears: No Acute Distress - Head Head Exam: ATRAUMATIC, NORMOCEPHALIC - Respiratory Exam Respiratory Exam: Clear to Ausculation Bilateral - Cardiovascular Exam Cardiovascular Exam: REGULAR RHYTHM - GI/Abdominal Exam GI & Abdominal Exam: absent: Distended, Tenderness - Neurological Exam Neurological Exam: Alert, Awake - Extremities Exam Extremities Exam: absent: Calf Tenderness Plan - A. End of FOREST PATROLMAN Vital Signs: Blood Pressure: 90/56 Pulse Rate: 86 Respiratory Rate: 17 O2 Sat by Pulse Oximetry: 98 - B. Assessment of Findings&Treatment Plan 56 yo obese male pmh CAD, PVD, systolic CHF,A-Fib, COPD, DVT/PE , FOREST PATROLMAN was called for dyspnea with bp 70/30. pt's lungs were clear to auscultation, 500 ml NS bolus was administered. Pt was awake, alert and oriented. nebulizer with albuterol 2.5 mg was given for dyspnea pt's BP returned to 90/56 will follow up his vitals and clinical response. <Angel Field - Last Filed: 01/15/17 10:04> Attending/Attestation - Attestation I have personally seen and examined this patient.: No I have fully participated in the care of the patient.: No I have reviewed all pertinent clinical information, including history, physical exam and plan: No Notes (Text): 01/15/17 09:56 I saw and examined the patient shoulder to shoulder with Dr Felipe. The assessment and plan outlined represent my direct input. Patient with Hypotension of 70/30mmHg complaining of numbness an tingling at all extremities with pain to the right shoulder on flexion. # Hypotension probably secondary to dehydration - Emphysis on correct size of blood pressure Cuff for size of arm. - IV Fluids given and BP improved. Angel Field MD
[2017-01-15 06:54] LABS: HEMOGLOBIN 15.3 g/dL (12.0-18.0); MEAN CELL VOLUME 98.8 fl (80.0-94.0); MEAN CORPUSCULAR HEMOGLOBIN 31.7 pg (27.0-31.0); MEAN CORPUSCULAR HGB CONC 32.1 g/dL (33.0-37.0); RBC 4.81 Mil/uL (4.40-5.90); WHITE BLOOD COUNT 17.9 K/uL (4.8-10.8)
[2017-01-15 07:12] LABS: CALCIUM 8.2 mg/dL (8.4-10.2)
[2017-01-15] MEDS ORDERED: Sod Polystyrene Sulf 15 gm/60 ml Oral Susp PO ONE (08:15)
[2017-01-15] MEDS: Tiotropium 18 mcg Cap For Inhalation INH SCH (09:05)
[2017-01-15] MEDS: Hydrocortisone 1% Oint TOP SCH ×2 (09:08→16:23)
--- NOTE | 2017-01-15 10:18 | CP.PCM.PN ---
Subjective - Date & Time of Evaluation Date of Evaluation: 01/15/17 Time of Evaluation: 09:00 - Subjective Subjective: Had episode of hypotension and SOB last night improved with IV bolus and Duoneb No fever complains of Leg pain no CP no SOB saturation normal on RA no abd pain tolerating PO diet poor urine output , urine dark Objective - Vital Signs/Intake and Output Vital Signs (last 24 hours): Temp Pulse Resp BP Pulse Ox 98 F 81 18 132/70 96 01/15/17 08:04 01/15/17 08:04 01/15/17 08:04 01/15/17 08:04 01/15/17 08:04 Intake and Output: 01/15/17 01/15/17 06:59 18:59 Intake Total 1700 Balance 1700 - Medications Medications: Current Medications Acetaminophen (Tylenol 325mg Tab) 650 mg PO Q6 PRN PRN Reason: Pain, Mild (1-3) Last Admin: 01/15/17 09:07 Dose: 650 mg Acetaminophen (Tylenol 325mg Tab) 650 mg PO Q6 PRN PRN Reason: Fever >100.4 F Albuterol (Ventolin Hfa 90 Mcg/Actuation (8 G)) 2 puff INH RQ6 PRN PRN Reason: Shortness of Breath Last Admin: 01/14/17 12:32 Dose: 2 puff Albuterol Sulfate (Albuterol 0.083% Inhal Valeria (2.5 Mg/3 Ml) Ud) 2.5 mg INH RQ4 PRN PRN Reason: Shortness of Breath Allopurinol (Zyloprim) 100 mg PO DAILY [facility] Last Admin: 01/15/17 09:01 Dose: 100 mg Aspirin (Aspirin) 325 mg PO DAILY [facility] Last Admin: 01/15/17 09:08 Dose: 325 mg Clopidogrel Bisulfate (Plavix) 75 mg PO DAILY [facility] Last Admin: 01/15/17 09:01 Dose: 75 mg Collagenase (Santyl) 1 applic TOP DAILY [facility] Hydrocortisone (Cortizone 1% Oint) 1 applic TOP BID [facility] Last Admin: 01/15/17 09:08 Dose: 1 appl Sodium Chloride (Sodium Chloride 0.9%) 250 mls @ 250 mls/hr IV .Q1H [facility] Last Admin: 01/14/17 05:33 Dose: 250 mls/hr Clindamycin Phosphate 600 mg/ (Sodium Chloride) 54 mls @ 54 mls/hr IVPB Q8 [facility] Last Admin: 01/15/17 09:08 Dose: 54 mls/hr Gentamicin Sulfate/Sodium Chloride (Gentamicin 60mg/50ml Ns) 60 mg in 50 mls @ 50 mls/hr IVPB Q24H [facility] Last Admin: 01/14/17 23:25 Dose: 50 mls/hr Nitroglycerin (Nitrostat Sl Tab) 0.4 mg SL Q5M PRN PRN Reason: chest pain Ondansetron HCl (Zofran Inj) 4 mg IVP Q4 PRN PRN Reason: Nausea/Vomiting Last Admin: 01/14/17 22:13 Dose: 4 mg Sodium Bicarbonate (Sodium Bicarbonate Tab) 650 mg PO Q8 [facility] Tiotropium [place] (Spiriva) 18 mcg INH DAILY [facility] Last Admin: 01/15/17 09:05 Dose: Not Given - Labs Labs: 01/15/17 06:30 01/15/17 06:30 - Constitutional Appears: Unkempt, Older Than Stated Age, Chronically Ill, Other (morbidly obese) - Head Exam Head Exam: ATRAUMATIC, NORMAL INSPECTION, NORMOCEPHALIC - Eye Exam Eye Exam: EOMI, Normal appearance Pupil Exam: NORMAL ACCOMODATION - ENT Exam ENT Exam: Mucous Membranes Moist, Normal External Ear Exam - Neck Exam Neck Exam: Full ROM. absent: Meningismus - Respiratory Exam Respiratory Exam: Rales, Rhonchi, NORMAL BREATHING PATTERN. absent: Wheezes, Respiratory Distress - Cardiovascular Exam Cardiovascular Exam: Irregular Rhythm, +S1, +S2 - GI/Abdominal Exam GI & Abdominal Exam: Distended, Soft, Normal Bowel Sounds. absent: Tenderness Additional comments: umbilical hernia - Extremities Exam Extremities Exam: Calf Tenderness, Pedal Edema, Tenderness - Back Exam Back Exam: Full ROM. absent: CVA tenderness (L), CVA tenderness (R) - Neurological Exam Neurological Exam: Alert, Awake, CN II-XII Intact, Oriented x3 Neuro motor strength exam: Left Upper Extremity: 5, Right Upper Extremity: 5, Left Lower Extremity: 5, Right Lower Extremity: 5 - Psychiatric Exam Psychiatric exam: Normal Affect, Normal Mood - Skin Skin Exam: Dry, Normal Color, Warm Additional comments: old, dry hyperpigmented patches mostly on abdomen, LE and UE Assessment and Plan - Assessment and Plan (Free Text) Assessment: 56 y/o M with Mhx of known CAD, PVD, systolic CHF (EF: 25-35% in 04/2015), A-Fib , COPD, DVT/PE, and gout who presents to the hospital today with worsening CP radiating to R arm with some numbness/tingling, worsening SOB, and dysuria. States he always has SOB, but developed this CP. Also states he has had 'foul smelling urine and also c/o diffuse itching, and c/o some swelling and ulceration in his legs. 1. 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 A Fib rate controlled not candidate for anticoag sec to chronic low Platelet 6. Acute kidney Injury on CKD stage III worsening renal funtion IVF hydration Nephrology consulted d/c YANET and Lasix Renal Sonogram: no hydronephrosis 7. Hyponatremia etiology to be determined serum and Urine Osm (8) Thrombocytopenia, chronic Status: Acute ? etiology Hematology consult (9) Morbid obesity with BMI of 50.0-59.9, adult Status: Chronic (10) DVT prophylaxis Status: Acute d/c Heparin due to worseing thrombocytopenia 11. Hyperkalemia likely sec to Renal disease - kayexalate rpt K level d/c YANET and Aldactone 12. Metabolic Acidosis sec to Renal Dis - start Sodium Bicarb tabs 13. COPD stable cont Duoneb tx - refused ADvair 14. hx of Sleep Apnea cont CPAP q hs
--- NOTE | 2017-01-15 11:34 | US ---
PROCEDURE: Ultrasound of the Kidneys HISTORY: ELYSIA COMPARISON: None available. TECHNIQUE: Grayscale imaging was performed. Examination is limited due to patient body habitus. FINDINGS: RIGHT KIDNEY: Measures: 11.1 cm. Normal in size, contour and echogenicity. No stone, solid mass lesion or hydronephrosis visualized. LEFT KIDNEY: Measures: 12.6 cm. Normal in size, contour and echogenicity. No stone, solid mass lesion or hydronephrosis visualized. OTHER FINDINGS: None. IMPRESSION: Limited examination due to patient body habitus, allowing for this no hydronephrosis or nephrolithiasis.
--- NOTE | 2017-01-15 13:10 | CP.PCM.PN ---
Subjective - Date & Time of Evaluation Date of Evaluation: 01/15/17 Time of Evaluation: 13:08 - Subjective Subjective: Patient sitting at the bedside Complaining of weakness tiredness Patient stated he is not urinating except of drops of urine coming out of his penis he said. No record of urine output because of that Worsening kidney function as noted Objective - Vital Signs/Intake and Output Vital Signs (last 24 hours): Temp Pulse Resp BP Pulse Ox 98 F 81 18 132/70 96 01/15/17 08:04 01/15/17 08:04 01/15/17 08:04 01/15/17 08:04 01/15/17 08:04 Intake and Output: 01/15/17 01/15/17 06:59 18:59 Intake Total 1700 Balance 1700 - Medications Medications: Current Medications Acetaminophen (Tylenol 325mg Tab) 650 mg PO Q6 PRN PRN Reason: Pain, Mild (1-3) Last Admin: 01/15/17 09:07 Dose: 650 mg Acetaminophen (Tylenol 325mg Tab) 650 mg PO Q6 PRN PRN Reason: Fever >100.4 F Albuterol (Ventolin Hfa 90 Mcg/Actuation (8 G)) 2 puff INH RQ6 PRN PRN Reason: Shortness of Breath Last Admin: 01/14/17 12:32 Dose: 2 puff Albuterol Sulfate (Albuterol 0.083% Inhal Valeria (2.5 Mg/3 Ml) Ud) 2.5 mg INH RQ4 PRN PRN Reason: Shortness of Breath Allopurinol (Zyloprim) 100 mg PO DAILY [facility] Last Admin: 01/15/17 09:01 Dose: 100 mg Aspirin (Aspirin) 325 mg PO DAILY [facility] Last Admin: 01/15/17 09:08 Dose: 325 mg Clopidogrel Bisulfate (Plavix) 75 mg PO DAILY [facility] Last Admin: 01/15/17 09:01 Dose: 75 mg Collagenase (Santyl) 1 applic TOP DAILY [facility] Hydrocortisone (Cortizone 1% Oint) 1 applic TOP BID [facility] Last Admin: 01/15/17 09:08 Dose: 1 appl Sodium Chloride (Sodium Chloride 0.9%) 250 mls @ 250 mls/hr IV .Q1H [facility] Last Admin: 01/14/17 05:33 Dose: 250 mls/hr Clindamycin Phosphate 600 mg/ (Sodium Chloride) 54 mls @ 54 mls/hr IVPB Q8 [facility] Last Admin: 01/15/17 09:08 Dose: 54 mls/hr Gentamicin Sulfate/Sodium Chloride (Gentamicin 60mg/50ml Ns) 60 mg in 50 mls @ 50 mls/hr IVPB Q24H [facility] Last Admin: 01/14/17 23:25 Dose: 50 mls/hr Nitroglycerin (Nitrostat Sl Tab) 0.4 mg SL Q5M PRN PRN Reason: chest pain Ondansetron HCl (Zofran Inj) 4 mg IVP Q4 PRN PRN Reason: Nausea/Vomiting Last Admin: 01/14/17 22:13 Dose: 4 mg Sodium Bicarbonate (Sodium Bicarbonate Tab) 650 mg PO Q8 [facility] Last Admin: 01/15/17 12:49 Dose: Not Given Tiotropium [place] (Spiriva) 18 mcg INH DAILY [facility] Last Admin: 01/15/17 09:05 Dose: Not Given - Labs Labs: 01/15/17 06:30 01/15/17 06:30 - Constitutional Appears: No Acute Distress - ENT Exam ENT Exam: Mucous Membranes Moist - Respiratory Exam Respiratory Exam: Decreased Breath Sounds, Rhonchi. absent: Chest Wall Tenderness - Cardiovascular Exam Cardiovascular Exam: absent: JVD, Rubs - GI/Abdominal Exam GI & Abdominal Exam: absent: Guarding Additional comments: very hard to examine the abdomen because he is obese and distended abdomen - Extremities Exam Extremities Exam: absent: Calf Tenderness - Back Exam Back Exam: absent: CVA tenderness (L), CVA tenderness (R) - Neurological Exam Neurological Exam: Alert Assessment and Plan (1) Acute on chronic kidney failure Assessment & Plan: Worsening kidney function with acute kidney injury perhaps related to multifactorial. Patient has a blood culture positive for gram-positive cocci so could be related to sepsis in addition patient was on multiple antibiotics. My recommendation to reconsider whether the patient need gentamicin because he grew gram-positive cocci however if he need gentamicin and then the dose should be adjusted to the renal dose probably half of the current dose, patient started on clindamycin for the treatment of gram-positive cocci. I requested to put Monk catheter stat and to be informed whether there is any urine retention because patient is not passing urine except of dripping. Patient also has hyponatremia which is worsening most likely related to dilutional hyponatremia. My recommendation fluid restriction for now and to mix all IV antibiotics with normal saline and all the medication intravenously was normal saline also to hold allopurinol for now Status: Acute (2) Chest pain Status: Acute
--- NOTE | 2017-01-15 16:03 | CP.PCM.PN ---
Subjective - Date & Time of Evaluation Date of Evaluation: 01/15/17 Time of Evaluation: 13:00 - Subjective Subjective: 56 y/o male seen at bedside complaining of severe pain in his feet b/l. Pt is AAOx3 and is in NAD. Pt states that he has not been able to sleep because of the pain and him not feeling so well. Pt states that his feet feel inflamed and they are very painful. Pt states that he took the dressing off on both feet because it was irritating him. Pt denies of any recent F/N/V/C. Pt denies of any new pedal complains. Objective - Vital Signs/Intake and Output Vital Signs (last 24 hours): Temp Pulse Resp BP Pulse Ox 98 F 81 18 132/70 96 01/15/17 08:04 01/15/17 09:00 01/15/17 08:04 01/15/17 08:04 01/15/17 08:04 Intake and Output: 01/15/17 01/15/17 06:59 18:59 Intake Total 1700 Balance 1700 - Medications Medications: Current Medications Acetaminophen (Tylenol 325mg Tab) 650 mg PO Q6 PRN PRN Reason: Pain, Mild (1-3) Last Admin: 01/15/17 09:07 Dose: 650 mg Acetaminophen (Tylenol 325mg Tab) 650 mg PO Q6 PRN PRN Reason: Fever >100.4 F Albuterol (Ventolin Hfa 90 Mcg/Actuation (8 G)) 2 puff INH RQ6 PRN PRN Reason: Shortness of Breath Last Admin: 01/14/17 12:32 Dose: 2 puff Albuterol Sulfate (Albuterol 0.083% Inhal Valeria (2.5 Mg/3 Ml) Ud) 2.5 mg INH RQ4 PRN PRN Reason: Shortness of Breath Aspirin (Aspirin) 325 mg PO DAILY [facility] Last Admin: 01/15/17 09:08 Dose: 325 mg Clopidogrel Bisulfate (Plavix) 75 mg PO DAILY [facility] Last Admin: 01/15/17 09:01 Dose: 75 mg Collagenase (Santyl) 1 applic TOP DAILY [facility] Hydrocortisone (Cortizone 1% Oint) 1 applic TOP BID [facility] Last Admin: 01/15/17 09:08 Dose: 1 appl Sodium Chloride (Sodium Chloride 0.9%) 250 mls @ 250 mls/hr IV .Q1H [facility] Last Admin: 01/14/17 05:33 Dose: 250 mls/hr Clindamycin Phosphate 600 mg/ (Sodium Chloride) 54 mls @ 54 mls/hr IVPB Q8 [facility] Last Admin: 01/15/17 09:08 Dose: 54 mls/hr Gentamicin Sulfate/Sodium Chloride (Gentamicin 60mg/50ml Ns) 60 mg in 50 mls @ 50 mls/hr IVPB Q24H [facility] Last Admin: 01/14/17 23:25 Dose: 50 mls/hr Nitroglycerin (Nitrostat Sl Tab) 0.4 mg SL Q5M PRN PRN Reason: chest pain Ondansetron HCl (Zofran Inj) 4 mg IVP Q4 PRN PRN Reason: Nausea/Vomiting Last Admin: 01/14/17 22:13 Dose: 4 mg Sodium Bicarbonate (Sodium Bicarbonate Tab) 650 mg PO Q8 [facility] Last Admin: 01/15/17 12:49 Dose: Not Given Tiotropium [place] (Spiriva) 18 mcg INH DAILY [facility] Last Admin: 01/15/17 09:05 Dose: Not Given - Labs Labs: 01/15/17 06:30 01/15/17 06:30 - Constitutional Appears: Well, Non-toxic, No Acute Distress - Extremities Exam Additional comments: VASC: DP/PT pulses are non-palpable, LEAD DENTAL ASSISTANT: > 4 sec to all digits, TG: cool to cold, non-pitting edema with skin tenting noted to distal leg and feet b/l DERM: superficial ulcer on the dorsum of the R foot as well as on the posterior medial aspect of the R heel and ankle, no active drainage, no purulence, no malodor, no probe to bone, no undermining, no tunneling. erythema noted on distal leg as well as dorsum of the foot b/l NEURO: Protective sensation grossly diminished ORTHO: pain on active ROM of the b/l extremity - Neurological Exam Neurological Exam: Alert, Awake, Oriented x3 - Psychiatric Exam Psychiatric exam: Normal Affect, Normal Mood Assessment and Plan - Assessment and Plan (Free Text) Assessment: 56 y/o male seen at bedside for pain in his legs and feet secondary to superficial ulcer and PVD Plan: Pt evaluated and chart reviewed Pt discussed in details with attending Dr. Parr Labs and vitals reviewed (afebrile, WBC @ 17.9) IV abx as per ID - pt placed on gentamicin and clindamycin Cardiovascular on board Pt denied dressing change because it irritates him and he took the last dressing off himself Nursing order in place to change dressing daily using arlene saleh, GALINDO, mary Podiatry to follow while patient is in house
[2017-01-15] MEDS: Santyl Collagenase OINTMENT TOP SCH (16:23)
[2017-01-15] MEDS ORDERED: Sodium Chloride 0.9% 1,000 ML IV SCH ×4 (16:45→21:53)
[2017-01-15 17:54] LABS: BASO # 0.1 K/uL (0.0-0.2); BASO % 0.5 % (0.0-2.0); EOS # 0.2 K/uL (0.0-0.7); EOS % 1.2 % (0.0-4.0); HEMOGLOBIN 15.2 g/dL (12.0-18.0); LYMPH # 0.4 K/uL (1.0-4.3); LYMPH % 2.5 % (20.0-40.0); MEAN CELL VOLUME 98.6 fl (80.0-94.0); MEAN CORPUSCULAR HEMOGLOBIN 31.8 pg (27.0-31.0); MEAN CORPUSCULAR HGB CONC 32.3 g/dL (33.0-37.0); MEAN PLATELET VOLUME 10.7 fl (7.2-11.7); MONO # 0.8 K/uL (0.0-0.8); MONO % 4.9 % (0.0-10.0); NEUT # 15.6 K/uL (1.8-7.0); NEUT % 90.9 % (50.0-75.0); NRBC % 0.1 % (0.0-0.0); PLATELET COUNT 82 K/uL (130-400); RBC 4.77 Mil/uL (4.40-5.90); RED CELL DISTRIBUTION WIDTH 18.3 % (11.5-14.5); WHITE BLOOD COUNT 17.1 K/uL (4.8-10.8)
[2017-01-15 18:06] LABS: CALCIUM 8.4 mg/dL (8.4-10.2)
[2017-01-15] MEDS: Sodium Chloride 0.9% 500 ML IV SCH ×2 (18:14→20:25)
[2017-01-15 18:16] LABS: INR 1.4 (0.9-1.2); PROTHROMBIN TIME 16.2 Seconds (9.8-13.1)
[2017-01-15 18:17] LABS: PARTIAL THROMBOPLASTIN TIME 36.5 Seconds (25.6-37.1)
--- NOTE | 2017-01-15 18:21 | CP.PCM.PN ---
Subjective - Date & Time of Evaluation Date of Evaluation: 01/15/17 Time of Evaluation: 18:07 - Subjective Subjective: I D NOTE HAS POSITIVE BLOOD CULTURE FOR GRAM POS COCCI IN CHAINS LIKELY STREP WILL DISCONTINUE CLINDAMYCIN,GIVE ZYVOX IN CASE OF ENTROCOCCUS DC GENTAMICIN IN VIEW OF DCREASING RENAL FUNCTION ADD AVELOX Objective - Vital Signs/Intake and Output Vital Signs (last 24 hours): Temp Pulse Resp BP Pulse Ox 98.1 F 98 H 18 132/70 98 01/15/17 16:27 01/15/17 16:27 01/15/17 16:27 01/15/17 08:04 01/15/17 16:27 Intake and Output: 01/15/17 01/15/17 06:59 18:59 Intake Total 1700 Balance 1700 - Medications Medications: Current Medications Acetaminophen (Tylenol 325mg Tab) 650 mg PO Q6 PRN PRN Reason: Pain, Mild (1-3) Last Admin: 01/15/17 09:07 Dose: 650 mg Acetaminophen (Tylenol 325mg Tab) 650 mg PO Q6 PRN PRN Reason: Fever >100.4 F Albuterol (Ventolin Hfa 90 Mcg/Actuation (8 G)) 2 puff INH RQ6 PRN PRN Reason: Shortness of Breath Last Admin: 01/14/17 12:32 Dose: 2 puff Albuterol Sulfate (Albuterol 0.083% Inhal [place] (2.5 Mg/3 Ml) Ud) 2.5 mg INH RQ4 PRN PRN Reason: Shortness of Breath Clopidogrel Bisulfate (Plavix) 75 mg PO DAILY [facility] Last Admin: 01/15/17 09:01 Dose: 75 mg Collagenase (Santyl) 1 applic TOP DAILY [facility] Last Admin: 01/15/17 16:23 Dose: 1 applic Hydrocortisone (Cortizone 1% Oint) 1 applic TOP BID [facility] Last Admin: 01/15/17 16:23 Dose: 1 appl Sodium Chloride (Sodium Chloride 0.9%) 250 mls @ 250 mls/hr IV .Q1H [facility] Last Admin: 01/14/17 05:33 Dose: 250 mls/hr Sodium Chloride (Sodium Chloride 0.9%) 500 mls @ 999 mls/hr IV .Q31M [facility] Sodium Chloride (Sodium Chloride 0.9%) 1,000 mls @ 100 mls/hr IV .Q10H [facility] Stop: 01/16/17 16:45 Clindamycin Phosphate 600 mg/ (Sodium Chloride) 54 mls @ 54 mls/hr IVPB Q12 [facility] Moxifloxacin HCl (Avelox Iv 400mg/250ml Ns) 400 mg in 250 mls @ 250 mls/hr IVPB DAILY [facility] Lactic Acid (Lac-Hydrin 12% Lotion (225 G)) 1 applic TOP TID [facility] Nitroglycerin (Nitrostat Sl Tab) 0.4 mg SL Q5M PRN PRN Reason: chest pain Ondansetron HCl (Zofran Inj) 4 mg IVP Q4 PRN PRN Reason: Nausea/Vomiting Last Admin: 01/14/17 22:13 Dose: 4 mg Sodium Bicarbonate (Sodium Bicarbonate Tab) 650 mg PO Q8 [facility] Last Admin: 01/15/17 12:49 Dose: Not Given Tiotropium [place] (Spiriva) 18 mcg INH DAILY [facility] Last Admin: 01/15/17 09:05 Dose: Not Given - Labs Labs: 01/15/17 17:15 01/15/17 06:30
[2017-01-15 19:15] LABS: BANDS 2 % (0-2); LYMPHOCYTE 2 % (20-50); MONOCYTE 4 % (0-10); NEUTROPHIL 92 % (42-75); TOTAL CELLS COUNTED 100
[2017-01-15 19:18] LABS: PLATELET ESTIMATE MARKEDLY DECREASED (NORMAL)
[2017-01-15] MEDS ORDERED: Lidocaine 1% Inj (20ml) ONE (20:03)
[2017-01-15] MEDS: Linezolid 600 mg in D5W 300 ml 600 MG/300 ML BAG IVPB SCH (21:07)
--- NOTE | 2017-01-15 21:19 | CP.CCUPN ---
CCU Subjective - Physician Review Subjective (Free Text): 01/15/17 21:15 Mr Hernandez 56 years old obese male Transferred to the ICU for monitoring of his Hypotension. He has Hx of A Fib, CAD s/p CABG, PE/DVT with IVC filter, COPD and CKD, admitted on 01/14/17 with left side chest pain, SOB, weeping right leg and hypotension, with blood culture positive for Gm+ cocci in chains. He was diagnosed with Sepsis probably secondary to the lower extremity infected ulcers with bacteremia. The patient has had multiple HAND PLUG SHAPER because of his which appears to be labile with predominantly hypotension. SPB in Telemetry was 70s. PMH: CAD/PVD; CHF systolic dysfunction with EF 25-35; chronic A Fib; DVT/PE; COPD; Gout; HTN; Morbid Obesity; Sleep Apnea; Chronic Thrombocytopenia; CKD PSH: IVC Filter [id number]; CABG 2010; Coronary Stent placement; Right femoral stent 2013 SH: Marijuana use; Smokes 1PPD x >40years; occasional Alcohol; live with family FH: Unknown family history Allergies: PCN CCU Objective - Vital Signs / Intake & Output Intake and Output (Last 8hrs): Intake & Output 01/15/17 01/15/17 01/15/17 06:59 14:59 22:59 Intake Total 1700 800 Output Total 35 Balance 1700 765 Intake: IV 1500 600 Intake, Piggyback 200 200 Output: Urine 35 Urine, Voided 35 Other: # Voids Urine, Voided 1 # Bowel Movements 10 - Physical Exam Head: Negative for: Atraumatic, Normocephalic Pupils: Negative for: PERRL Extroacular Muscles: Negative for: EOMI Conjunctiva: Negative for: Normal Ears: Negative for: Normal Mouth: Negative for: Moist Mucous Membranes, Normal Lips Pharnyx: Negative for: Normal Nose (External): Negative for: Atraumatic Nose (Internal): Positive for: Normal Inspection, No Active Bleeding Neck: Positive for: Normal Range of Motion. Negative for: Meningeal Signs, JVD , Lymphadenopathy Respiratory/Chest: Positive for: Decreased Breath Sounds, Rales Cardiovascular: Positive for: Normal S1, S2, Irregular Rhythm Abdomen: Positive for: Distention. Negative for: Tenderness Back: Positive for: Normal Inspection. Negative for: CVA Tenderness Upper Extremity: Positive for: Normal Inspection. Negative for: Normal ROM Lower Extremity: Positive for: Swelling Neurological: Positive for: GCS=15, CN II-XII Intact, Speech Normal. Negative for: Norm Deep Tendon Reflexes Skin: Positive for: Warm, Dry, Rashes, Normal Color Psychiatric: Positive for: Oriented x 3, Normal Concentration, Normal Affect, Normal Mood - Medications Active Medications: Active Medications Generic Name Dose Route Start Last Admin Trade Name Freq PRN Reason Stop Dose Admin Acetaminophen 650 mg 01/14/17 04:01 01/15/17 09:07 Tylenol 325mg Tab PO 650 mg Q6 PRN Administration Pain, Mild (1-3) Acetaminophen 650 mg 01/14/17 04:01 Tylenol 325mg Tab PO Q6 PRN Fever >100.4 F Albuterol 2 puff 01/14/17 04:55 01/14/17 12:32 Ventolin Hfa 90 Mcg/Actuation (8 G) INH 2 puff RQ6 PRN Administration Shortness of Breath Albuterol Sulfate 2.5 mg 01/15/17 05:09 Albuterol 0.083% Inhal Valeria (2.5 Mg/3 Ml) Ud INH RQ4 PRN Shortness of Breath Clopidogrel Bisulfate 75 mg 01/14/17 09:00 01/15/17 09:01 Plavix PO 75 mg DAILY FACUNDO Administration Collagenase 1 applic 01/15/17 14:45 01/15/17 16:23 Santyl TOP 1 applic DAILY FACUNDO Administration Hydrocortisone 1 applic 01/14/17 09:00 01/15/17 16:23 Cortizone 1% Oint TOP 1 appl BID FACUNDO Administration Sodium Chloride 250 mls @ 250 mls/hr 01/14/17 05:30 01/14/17 05:33 Sodium Chloride 0.9% IV 250 mls/hr .Q1H FACUNDO Administration Sodium Chloride 500 mls @ 999 mls/hr 01/15/17 16:45 01/15/17 18:14 Sodium Chloride 0.9% IV 999 mls/hr .Q31M FACUNDO Administration Sodium Chloride 1,000 mls @ 100 mls/hr 01/15/17 16:49 01/15/17 18:05 Sodium Chloride 0.9% IV 01/16/17 16:45 100 mls/hr .Q10H FACUNDO Administration Moxifloxacin HCl 400 mg in 250 mls @ 250 mls/hr 01/16/17 09:00 Avelox Iv 400mg/250ml Ns IVPB DAILY FACUNDO Linezolid 600 mg in 300 mls @ 300 mls/hr 01/15/17 21:00 01/15/17 21:07 Zyvox 600mg/300ml D5w IVPB 300 mls/hr Q12 FACUNDO Administration Sodium Chloride 1,000 mls @ 999 mls/hr 01/15/17 19:45 Sodium Chloride 0.9% IV 01/16/17 19:33 .Q1H1M FACUNDO Lactic Acid 1 applic 01/15/17 17:00 01/15/17 18:05 Lac-Hydrin 12% Lotion (225 G) TOP 1 applic TID FACUNDO Administration Nitroglycerin 0.4 mg 01/14/17 04:01 Nitrostat Sl Tab SL Q5M PRN chest pain Ondansetron HCl 4 mg 01/14/17 21:10 01/14/17 22:13 Zofran Inj IVP 4 mg Q4 PRN Administration Nausea/Vomiting Sodium Bicarbonate 650 mg 01/15/17 09:00 01/15/17 18:10 Sodium Bicarbonate Tab PO 01/16/17 09:00 650 mg Q8 FACUNDO Administration Tiotropium [place] 18 mcg 01/14/17 09:00 01/15/17 09:05 Spiriva INH Not Given DAILY FACUNDO - Patient Studies Lab Studies: Lab Studies 01/15/17 01/15/17 01/15/17 Range/Units 19:00 17:15 17:15 WBC (4.8-10.8) K/uL RBC (4.40-5.90) Mil/uL Hgb (12.0-18.0) g/dL Hct (35.0-51.0) % MCV (80.0-94.0) fl MCH (27.0-31.0) pg MCHC (33.0-37.0) g/dL RDW (11.5-14.5) % Plt Count (130-400) K/uL MPV (7.2-11.7) fl Neut % (Auto) (50.0-75.0) % Lymph % (Auto) (20.0-40.0) % [place] % (Auto) (0.0-10.0) % Eos % (Auto) (0.0-4.0) % Baso % (Auto) (0.0-2.0) % Neut # (1.8-7.0) K/uL Lymph # (1.0-4.3) K/uL [place] # (0.0-0.8) K/uL Eos # (0.0-0.7) K/uL Baso # (0.0-0.2) K/uL Neutrophils % (Manual) (42-75) % Band Neutrophils % (0-2) % Lymphocytes % (Manual) (20-50) % Monocytes % (Manual) (0-10) % Platelet Estimate (NORMAL) ESR (0-20) mm/hr PT (9.8-13.1) Seconds INR (0.9-1.2) APTT (25.6-37.1) Seconds D-Dimer, Quantitative 755 H (0-230) ng/mlDDU Sodium (132-148) mmol/l Potassium (3.6-5.0) MMOL/L Chloride (98-107) mmol/L Carbon Dioxide (22-30) mmol/L Anion Gap (10-20) BUN (9-20) mg/dl Creatinine (0.8-1.5) mg/dL Est GFR ( Amer) Est GFR (Non-Af Amer) Random Glucose (75-110) mg/dL Hemoglobin A1c (4.2-6.5) % Serum Osmolality 380 H (272-300) mosm/kg Lactic Acid (0.7-2.1) MMOL/L Calcium (8.4-10.2) mg/dL Urine Osmolality 306 (300-1000) mosm/kg 01/15/17 01/15/17 01/15/17 Range/Units 17:15 17:15 17:15 WBC 17.1 H (4.8-10.8) K/uL RBC 4.77 (4.40-5.90) Mil/uL Hgb 15.2 (12.0-18.0) g/dL Hct 47.0 (35.0-51.0) % MCV 98.6 H (80.0-94.0) fl MCH 31.8 H (27.0-31.0) pg MCHC 32.3 L (33.0-37.0) g/dL RDW 18.3 H (11.5-14.5) % Plt Count 82 L (130-400) K/uL MPV 10.7 (7.2-11.7) fl Neut % (Auto) 90.9 H (50.0-75.0) % Lymph % (Auto) 2.5 L (20.0-40.0) % [place] % (Auto) 4.9 (0.0-10.0) % Eos % (Auto) 1.2 (0.0-4.0) % Baso % (Auto) 0.5 (0.0-2.0) % Neut # 15.6 H (1.8-7.0) K/uL Lymph # 0.4 L (1.0-4.3) K/uL [place] # 0.8 (0.0-0.8) K/uL Eos # 0.2 (0.0-0.7) K/uL Baso # 0.1 (0.0-0.2) K/uL Neutrophils % (Manual) 92 H (42-75) % Band Neutrophils % 2 (0-2) % Lymphocytes % (Manual) 2 L (20-50) % Monocytes % (Manual) 4 (0-10) % Platelet Estimate Markedly decreased L (NORMAL) ESR 35 H (0-20) mm/hr PT 16.2 H (9.8-13.1) Seconds INR 1.4 H (0.9-1.2) APTT 36.5 (25.6-37.1) Seconds D-Dimer, Quantitative (0-230) ng/mlDDU Sodium 130 L (132-148) mmol/l Potassium 5.0 (3.6-5.0) MMOL/L Chloride 92 L (98-107) mmol/L Carbon Dioxide 23 (22-30) mmol/L Anion Gap 20 (10-20) BUN 72 H (9-20) mg/dl Creatinine 4.5 H (0.8-1.5) mg/dL Est GFR ( Amer) 16 Est GFR (Non-Af Amer) 14 Random Glucose 61 L (75-110) mg/dL Hemoglobin A1c (4.2-6.5) % Serum Osmolality (272-300) mosm/kg Lactic Acid (0.7-2.1) MMOL/L Calcium 8.4 (8.4-10.2) mg/dL Urine Osmolality (300-1000) mosm/kg 01/15/17 01/15/17 01/15/17 Range/Units 12:22 06:35 06:30 WBC (4.8-10.8) K/uL RBC (4.40-5.90) Mil/uL Hgb (12.0-18.0) g/dL Hct (35.0-51.0) % MCV (80.0-94.0) fl MCH (27.0-31.0) pg MCHC (33.0-37.0) g/dL RDW (11.5-14.5) % Plt Count (130-400) K/uL MPV (7.2-11.7) fl Neut % (Auto) (50.0-75.0) % Lymph % (Auto) (20.0-40.0) % [place] % (Auto) (0.0-10.0) % Eos % (Auto) (0.0-4.0) % Baso % (Auto) (0.0-2.0) % Neut # (1.8-7.0) K/uL Lymph # (1.0-4.3) K/uL [place] # (0.0-0.8) K/uL Eos # (0.0-0.7) K/uL Baso # (0.0-0.2) K/uL Neutrophils % (Manual) (42-75) % Band Neutrophils % (0-2) % Lymphocytes % (Manual) (20-50) % Monocytes % (Manual) (0-10) % Platelet Estimate (NORMAL) ESR (0-20) mm/hr PT (9.8-13.1) Seconds INR (0.9-1.2) APTT (25.6-37.1) Seconds D-Dimer, Quantitative (0-230) ng/mlDDU Sodium 126 L (132-148) mmol/l Potassium 5.5 H (3.6-5.0) MMOL/L Chloride 96 L (98-107) mmol/L Carbon Dioxide 16 L (22-30) mmol/L Anion Gap 20 (10-20) BUN 62 H (9-20) mg/dl Creatinine 3.8 H (0.8-1.5) mg/dL Est GFR ( Amer) 20 Est GFR (Non-Af Amer) 17 Random Glucose 76 (75-110) mg/dL Hemoglobin A1c 6.8 H (4.2-6.5) % Serum Osmolality (272-300) mosm/kg Lactic Acid 3.8 H (0.7-2.1) MMOL/L Calcium 8.2 L (8.4-10.2) mg/dL Urine Osmolality (300-1000) mosm/kg 01/15/17 Range/Units 06:30 WBC 17.9 H (4.8-10.8) K/uL RBC 4.81 (4.40-5.90) Mil/uL Hgb 15.3 (12.0-18.0) g/dL Hct 47.5 (35.0-51.0) % MCV 98.8 H (80.0-94.0) fl MCH 31.7 H (27.0-31.0) pg MCHC 32.1 L (33.0-37.0) g/dL RDW 18.0 H (11.5-14.5) % Plt Count 76 L D (130-400) K/uL MPV (7.2-11.7) fl Neut % (Auto) (50.0-75.0) % Lymph % (Auto) (20.0-40.0) % [place] % (Auto) (0.0-10.0) % Eos % (Auto) (0.0-4.0) % Baso % (Auto) (0.0-2.0) % Neut # (1.8-7.0) K/uL Lymph # (1.0-4.3) K/uL [place] # (0.0-0.8) K/uL Eos # (0.0-0.7) K/uL Baso # (0.0-0.2) K/uL Neutrophils % (Manual) (42-75) % Band Neutrophils % (0-2) % Lymphocytes % (Manual) (20-50) % Monocytes % (Manual) (0-10) % Platelet Estimate (NORMAL) ESR (0-20) mm/hr PT (9.8-13.1) Seconds INR (0.9-1.2) APTT (25.6-37.1) Seconds D-Dimer, Quantitative (0-230) ng/mlDDU Sodium (132-148) mmol/l Potassium (3.6-5.0) MMOL/L Chloride (98-107) mmol/L Carbon Dioxide (22-30) mmol/L Anion Gap (10-20) BUN (9-20) mg/dl Creatinine (0.8-1.5) mg/dL Est GFR ( Amer) Est GFR (Non-Af Amer) Random Glucose (75-110) mg/dL Hemoglobin A1c (4.2-6.5) % Serum Osmolality (272-300) mosm/kg Lactic Acid (0.7-2.1) MMOL/L Calcium (8.4-10.2) mg/dL Urine Osmolality (300-1000) mosm/kg Laboratory Results - last 24 hr 01/15/17 01/15/17 01/15/17 06:30 06:30 06:35 WBC 17.9 H RBC 4.81 Hgb 15.3 Hct 47.5 MCV 98.8 H MCH 31.7 H MCHC 32.1 L RDW 18.0 H Plt Count 76 L D MPV Neut % (Auto) Lymph % (Auto) [place] % (Auto) Eos % (Auto) Baso % (Auto) Neut # Lymph # [place] # Eos # Baso # Neutrophils % (Manual) Band Neutrophils % Lymphocytes % (Manual) Monocytes % (Manual) Platelet Estimate ESR PT INR APTT D-Dimer, Quantitative Sodium 126 L Potassium 5.5 H Chloride 96 L Carbon Dioxide 16 L Anion Gap 20 BUN 62 H Creatinine 3.8 H Est GFR ( Amer) 20 Est GFR (Non-Af Amer) 17 Random Glucose 76 Hemoglobin A1c 6.8 H Serum Osmolality Lactic Acid Calcium 8.2 L Urine Osmolality 01/15/17 01/15/17 01/15/17 12:22 17:15 17:15 WBC RBC Hgb Hct MCV MCH MCHC RDW Plt Count MPV Neut % (Auto) Lymph % (Auto) [place] % (Auto) Eos % (Auto) Baso % (Auto) Neut # Lymph # [place] # Eos # Baso # Neutrophils % (Manual) Band Neutrophils % Lymphocytes % (Manual) Monocytes % (Manual) Platelet Estimate ESR PT 16.2 H INR 1.4 H APTT 36.5 D-Dimer, Quantitative Sodium 130 L Potassium 5.0 Chloride 92 L Carbon Dioxide 23 Anion Gap 20 BUN 72 H Creatinine 4.5 H Est GFR ( Amer) 16 Est GFR (Non-Af Amer) 14 Random Glucose 61 L Hemoglobin A1c Serum Osmolality Lactic Acid 3.8 H Calcium 8.4 Urine Osmolality 01/15/17 01/15/17 01/15/17 17:15 17:15 17:15 WBC 17.1 H RBC 4.77 Hgb 15.2 Hct 47.0 MCV 98.6 H MCH 31.8 H MCHC 32.3 L RDW 18.3 H Plt Count 82 L MPV 10.7 Neut % (Auto) 90.9 H Lymph % (Auto) 2.5 L [place] % (Auto) 4.9 Eos % (Auto) 1.2 Baso % (Auto) 0.5 Neut # 15.6 H Lymph # 0.4 L [place] # 0.8 Eos # 0.2 Baso # 0.1 Neutrophils % (Manual) 92 H Band Neutrophils % 2 Lymphocytes % (Manual) 2 L Monocytes % (Manual) 4 Platelet Estimate Markedly decreased L ESR 35 H PT INR APTT D-Dimer, Quantitative 755 H Sodium Potassium Chloride Carbon Dioxide Anion Gap BUN Creatinine Est GFR ( Amer) Est GFR (Non-Af Amer) Random Glucose Hemoglobin A1c Serum Osmolality 380 H Lactic Acid Calcium Urine Osmolality 01/15/17 19:00 WBC RBC Hgb Hct MCV MCH MCHC RDW Plt Count MPV Neut % (Auto) Lymph % (Auto) [place] % (Auto) Eos % (Auto) Baso % (Auto) Neut # Lymph # [place] # Eos # Baso # Neutrophils % (Manual) Band Neutrophils % Lymphocytes % (Manual) Monocytes % (Manual) Platelet Estimate ESR PT INR APTT D-Dimer, Quantitative Sodium Potassium Chloride Carbon Dioxide Anion Gap BUN Creatinine Est GFR ( Amer) Est GFR (Non-Af Amer) Random Glucose Hemoglobin A1c Serum Osmolality Lactic Acid Calcium Urine Osmolality 306 Review of Systems - Constitutional Constitutional: Weakness. absent: Fever, Chills - EENT Eyes: Requires Corrective Lenses. absent: Diplopia, Photophobia Ears: absent: Decreased Hearing, Ear Discharge, Ear Pain, Tinnitus Nose/Mouth/Throat: absent: Epistaxis, Nasal Congestion, Nasal Discharge - Cardiovascular Cardiovascular: Dyspnea, Leg Edema, Orthopnea. absent: Lightheadedness, Palpitations - Respiratory Respiratory: Cough, Dyspnea - Gastrointestinal Gastrointestinal: Abdominal Pain, Diarrhea. absent: Constipation, Nausea, Vomiting - Genitourinary Genitourinary: Dysuria. absent: Flank Pain, Hematuria - Musculoskeletal Musculoskeletal: Arthralgias, Muscle Cramps, Muscle Weakness - Integumentary Integumentary: Rash, Swelling. absent: Skin Ulcer, Striae - Neurological Neurological: Paresthesias. absent: Confusion, Focal Weakness, Headaches - Endocrine Endocrine: absent: Palpitations, Polydipsia, Polyphagia, Polyuria - Hematologic/Lymphatic Hematologic: absent: Easy Bleeding, Easy Bruising Assessment/Plan - Assessment and Plan (Free Text) Plan: 56 y/o M with Mhx of known CAD, PVD, systolic CHF (EF: 25-35% in 04/2015), A-Fib , COPD, DVT/PE, and gout diagnosed with sepsis with hypotension. He is admitted to the ICU to monitor the blood pressure and to continue treatment. #. Hypotension with sepsis - Transfer to ICU to monitor Blood pressure. BP 98/40mmHG in ICU on IV fluids - attempt at A line at right wrist was unsuccessful - One Liter of NS administered - Continue with NS at 100mls /hr 1. Sepsis prob sec to LE Infected Ulcers ID on consult: ( Dr Gardiner) On Linezolid and Moxifloxacin Podiatry : Dr joiner consulted (2) Chest pain, ACS ruled out - Trop x3 negative Cardio consulted- Dr Roberts cont ASA, Plavix Echo: poor window due to obesity,unable to eval accdg to Content Designer (3) Hx of PE /DVT unclear when pt had these not candidate for anticoagulation due to Thrombocytopenia had episode of SOB last night with hypotension , not tachycardic, saturation 97 % on RA today Doppler us of LE to r/o DVT V/Q scan to r/o PE 4) CHF compensated, systolic EF=25-35% no YANET sec to hyperkalemia no BB due to low BP 5. A Fib rate controlled not candidate for anticoag sec to chronic low Platelet 6. Acute kidney Injury on CKD stage III worsening renal funtion IVF hydration Nephrology consulted d/c YANET and Lasix Renal Sonogram: no hydronephrosis 7. Hyponatremia etiology to be determined serum and Urine Osm (8) Thrombocytopenia, chronic Status: Acute ? etiology Hematology consult (9) Morbid obesity with BMI of 50.0-59.9, adult Status: Chronic (10) DVT prophylaxis Status: Acute d/c Heparin due to worseing thrombocytopenia 11. Hyperkalemia likely sec to Renal disease - kayexalate rpt K level d/c YANET and Aldactone 12. Metabolic Acidosis sec to Renal Dis - start Sodium Bicarb tabs 13. COPD stable cont Duoneb tx - refused ADvair 14. hx of Sleep Apnea cont CPAP q hs - Date & Time Date: 01/15/17 Time: 22:11
[2017-01-16 09:23] LABS: BASO % 0.1 % (0.0-2.0); EOS # 0.2 K/uL (0.0-0.7); LYMPH # 0.6 K/uL (1.0-4.3); LYMPH % 3.3 % (20.0-40.0); MEAN CELL VOLUME 98.6 fl (80.0-94.0); MEAN CORPUSCULAR HEMOGLOBIN 31.8 pg (27.0-31.0); MEAN CORPUSCULAR HGB CONC 32.3 g/dL (33.0-37.0); MEAN PLATELET VOLUME 10.6 fl (7.2-11.7); MONO # 0.8 K/uL (0.0-0.8); MONO % 4.3 % (0.0-10.0); NEUT % 91.3 % (50.0-75.0); PLATELET COUNT 77 K/uL (130-400); RBC 4.72 Mil/uL (4.40-5.90); RED CELL DISTRIBUTION WIDTH 17.9 % (11.5-14.5); WHITE BLOOD COUNT 17.6 K/uL (4.8-10.8)
[2017-01-16 09:28] LABS: ALB/GLOB RATIO 1.1 (1.0-2.1); ALBUMIN 3.6 g/dL (3.5-5.0); CALCIUM 8.2 mg/dL (8.4-10.2)
[2017-01-16] MEDS: Moxifloxacin IV 400mg/250ml NS 400 MG/250 ML BAG IVPB SCH (09:52)
[2017-01-16] MEDS: Hydrocortisone 1% Oint TOP SCH ×2 (09:52→16:18)
[2017-01-16] MEDS: Tiotropium 18 mcg Cap For Inhalation INH SCH (09:54)
[2017-01-16] MEDS: Santyl Collagenase OINTMENT TOP SCH (09:54)
[2017-01-16] MEDS: Linezolid 600 mg in D5W 300 ml 600 MG/300 ML BAG IVPB SCH ×2 (09:55→20:45)
--- NOTE | 2017-01-16 10:38 | CP.CCUPN ---
CCU Subjective - Physician Review Events Since Last Encounter (Free Text): 01/16/17 10:34 Patient awake, no distress, no fever, no pressors, follow commands, events reviewed CCU Objective - Vital Signs / Intake & Output Vital Signs (Last 4 hours): Vital Signs Temp Pulse Resp BP Pulse Ox 01/16/17 08:00 97.8 F 94 H 22 77/50 L 91 L Intake and Output (Last 8hrs): Intake & Output 01/15/17 01/16/17 01/16/17 22:59 06:59 14:59 Intake Total 800 1550 670 Output Total 35 30 Balance 765 1520 670 Intake: IV 600 1250 Intake, Piggyback 200 550 Oral 300 120 Output: Urine 35 30 Urine, Voided 35 30 Other: # Bowel Movements 10 1 - Physical Exam Head: Positive for: Atraumatic, Normocephalic Pupils: Positive for: PERRL Extroacular Muscles: Positive for: EOMI Conjunctiva: Positive for: Normal Ears: Positive for: Normal Pharnyx: Positive for: Normal Nose (External): Positive for: Atraumatic Nose (Internal): Positive for: Normal Inspection, No Active Bleeding Neck: Positive for: Normal Range of Motion. Negative for: Meningeal Signs, JVD , Lymphadenopathy Respiratory/Chest: Positive for: Decreased Breath Sounds Cardiovascular: Positive for: Normal S1, S2, Irregular Rhythm Abdomen: Positive for: Normal Bowel Sounds. Negative for: Tenderness Back: Positive for: Normal Inspection. Negative for: CVA Tenderness Upper Extremity: Positive for: Normal Inspection Lower Extremity: Positive for: Normal Inspection Neurological: Positive for: GCS=15, CN II-XII Intact, Speech Normal. Negative for: Norm Deep Tendon Reflexes Skin: Positive for: Warm, Dry, Rashes, Normal Color Psychiatric: Positive for: Alert, Oriented x 3 - Medications Active Medications: Active Medications Generic Name Dose Route Start Last Admin Trade Name Freq PRN Reason Stop Dose Admin Acetaminophen 650 mg 01/14/17 04:01 01/15/17 09:07 Tylenol 325mg Tab PO 650 mg Q6 PRN Administration Pain, Mild (1-3) Acetaminophen 650 mg 01/14/17 04:01 Tylenol 325mg Tab PO Q6 PRN Fever >100.4 F Albuterol 2 puff 01/14/17 04:55 01/14/17 12:32 Ventolin Hfa 90 Mcg/Actuation (8 G) INH 2 puff RQ6 PRN Administration Shortness of Breath Albuterol Sulfate 2.5 mg 01/15/17 05:09 Albuterol 0.083% Inhal Valeria (2.5 Mg/3 Ml) Ud INH RQ4 PRN Shortness of Breath Clopidogrel Bisulfate 75 mg 01/14/17 09:00 01/16/17 09:53 Plavix PO 75 mg DAILY FACUNDO Administration Collagenase 1 applic 01/15/17 14:45 01/16/17 09:54 Santyl TOP 1 applic DAILY FACUNDO Administration Hydrocortisone 1 applic 01/14/17 09:00 01/16/17 09:52 Cortizone 1% Oint TOP 1 appl BID FACUNDO Administration Sodium Chloride 1,000 mls @ 100 mls/hr 01/15/17 16:49 01/15/17 18:05 Sodium Chloride 0.9% IV 01/16/17 16:45 100 mls/hr .Q10H FACUNDO Administration Moxifloxacin HCl 400 mg in 250 mls @ 250 mls/hr 01/16/17 09:00 01/16/17 09:52 Avelox Iv 400mg/250ml Ns IVPB 250 mls/hr DAILY FACUNDO Administration Linezolid 600 mg in 300 mls @ 300 mls/hr 01/15/17 21:00 01/16/17 09:55 Zyvox 600mg/300ml D5w IVPB 300 mls/hr Q12 FACUNDO Administration Sodium Chloride 1,000 mls @ 100 mls/hr 01/15/17 21:53 01/15/17 23:32 Sodium Chloride 0.9% IV 01/16/17 19:33 100 mls/hr .Q10H FACUNDO Administration Lactic Acid 1 applic 01/15/17 17:00 01/16/17 09:53 Lac-Hydrin 12% Lotion (225 G) TOP 1 applic TID FACUNDO Administration Nitroglycerin 0.4 mg 01/14/17 04:01 Nitrostat Sl Tab SL Q5M PRN chest pain Ondansetron HCl 4 mg 01/14/17 21:10 01/15/17 22:10 Zofran Inj IVP 4 mg Q4 PRN Administration Nausea/Vomiting Tiotropium [place] 18 mcg 01/14/17 09:00 01/16/17 09:54 Spiriva INH 18 mcg DAILY FACUNDO Administration - Patient Studies Lab Studies: Microbiology Studies 01/15/17 00:40 Blood Culture - Preliminary Blood-Venous NO GROWTH AFTER 24 HOURS Lab Studies 01/16/17 01/16/17 01/16/17 Range/Units 08:00 08:00 08:00 WBC 17.6 H (4.8-10.8) K/uL RBC 4.72 (4.40-5.90) Mil/uL Hgb 15.0 (12.0-18.0) g/dL Hct 46.5 (35.0-51.0) % MCV 98.6 H (80.0-94.0) fl MCH 31.8 H (27.0-31.0) pg MCHC 32.3 L (33.0-37.0) g/dL RDW 17.9 H (11.5-14.5) % Plt Count 77 L (130-400) K/uL MPV 10.6 (7.2-11.7) fl Neut % (Auto) 91.3 H (50.0-75.0) % Lymph % (Auto) 3.3 L (20.0-40.0) % [place] % (Auto) 4.3 (0.0-10.0) % Eos % (Auto) 1.0 (0.0-4.0) % Baso % (Auto) 0.1 (0.0-2.0) % Neut # 16.0 H (1.8-7.0) K/uL Lymph # 0.6 L (1.0-4.3) K/uL [place] # 0.8 (0.0-0.8) K/uL Eos # 0.2 (0.0-0.7) K/uL Baso # 0.0 (0.0-0.2) K/uL Neutrophils % (Manual) (42-75) % Band Neutrophils % (0-2) % Lymphocytes % (Manual) (20-50) % Monocytes % (Manual) (0-10) % Platelet Estimate (NORMAL) ESR (0-20) mm/hr PT (9.8-13.1) Seconds INR (0.9-1.2) APTT (25.6-37.1) Seconds D-Dimer, Quantitative (0-230) ng/mlDDU Sodium 129 L (132-148) mmol/l Potassium 5.2 H (3.6-5.0) MMOL/L Chloride 93 L (98-107) mmol/L Carbon Dioxide 22 (22-30) mmol/L Anion Gap 19 (10-20) BUN 85 H (9-20) mg/dl Creatinine 5.3 H (0.8-1.5) mg/dL Est GFR ( Amer) 14 Est GFR (Non-Af Amer) 11 Random Glucose 86 (75-110) mg/dL Hemoglobin A1c (4.2-6.5) % Serum Osmolality (272-300) mosm/kg Lactic Acid 2.5 H (0.7-2.1) MMOL/L Calcium 8.2 L (8.4-10.2) mg/dL Total Bilirubin 2.5 H (0.2-1.3) mg/dl AST 98 H D (17-59) U/L ALT 78 H D (21-72) U/L Alkaline Phosphatase 83 (38-126) U/L Total Protein 6.7 (6.3-8.2) G/DL Albumin 3.6 (3.5-5.0) g/dL Globulin 3.2 (2.2-3.9) gm/dL Albumin/Globulin Ratio 1.1 (1.0-2.1) Urine Osmolality (300-1000) mosm/kg 01/15/17 01/15/17 01/15/17 Range/Units 19:00 17:15 17:15 WBC (4.8-10.8) K/uL RBC (4.40-5.90) Mil/uL Hgb (12.0-18.0) g/dL Hct (35.0-51.0) % MCV (80.0-94.0) fl MCH (27.0-31.0) pg MCHC (33.0-37.0) g/dL RDW (11.5-14.5) % Plt Count (130-400) K/uL MPV (7.2-11.7) fl Neut % (Auto) (50.0-75.0) % Lymph % (Auto) (20.0-40.0) % [place] % (Auto) (0.0-10.0) % Eos % (Auto) (0.0-4.0) % Baso % (Auto) (0.0-2.0) % Neut # (1.8-7.0) K/uL Lymph # (1.0-4.3) K/uL [place] # (0.0-0.8) K/uL Eos # (0.0-0.7) K/uL Baso # (0.0-0.2) K/uL Neutrophils % (Manual) (42-75) % Band Neutrophils % (0-2) % Lymphocytes % (Manual) (20-50) % Monocytes % (Manual) (0-10) % Platelet Estimate (NORMAL) ESR (0-20) mm/hr PT (9.8-13.1) Seconds INR (0.9-1.2) APTT (25.6-37.1) Seconds D-Dimer, Quantitative 755 H (0-230) ng/mlDDU Sodium (132-148) mmol/l Potassium (3.6-5.0) MMOL/L Chloride (98-107) mmol/L Carbon Dioxide (22-30) mmol/L Anion Gap (10-20) BUN (9-20) mg/dl Creatinine (0.8-1.5) mg/dL Est GFR ( Amer) Est GFR (Non-Af Amer) Random Glucose (75-110) mg/dL Hemoglobin A1c (4.2-6.5) % Serum Osmolality 380 H (272-300) mosm/kg Lactic Acid (0.7-2.1) MMOL/L Calcium (8.4-10.2) mg/dL Total Bilirubin (0.2-1.3) mg/dl AST (17-59) U/L ALT (21-72) U/L Alkaline Phosphatase (38-126) U/L Total Protein (6.3-8.2) G/DL Albumin (3.5-5.0) g/dL Globulin (2.2-3.9) gm/dL Albumin/Globulin Ratio (1.0-2.1) Urine Osmolality 306 (300-1000) mosm/kg 01/15/17 01/15/17 01/15/17 Range/Units 17:15 17:15 17:15 WBC 17.1 H (4.8-10.8) K/uL RBC 4.77 (4.40-5.90) Mil/uL Hgb 15.2 (12.0-18.0) g/dL Hct 47.0 (35.0-51.0) % MCV 98.6 H (80.0-94.0) fl MCH 31.8 H (27.0-31.0) pg MCHC 32.3 L (33.0-37.0) g/dL RDW 18.3 H (11.5-14.5) % Plt Count 82 L (130-400) K/uL MPV 10.7 (7.2-11.7) fl Neut % (Auto) 90.9 H (50.0-75.0) % Lymph % (Auto) 2.5 L (20.0-40.0) % [place] % (Auto) 4.9 (0.0-10.0) % Eos % (Auto) 1.2 (0.0-4.0) % Baso % (Auto) 0.5 (0.0-2.0) % Neut # 15.6 H (1.8-7.0) K/uL Lymph # 0.4 L (1.0-4.3) K/uL [place] # 0.8 (0.0-0.8) K/uL Eos # 0.2 (0.0-0.7) K/uL Baso # 0.1 (0.0-0.2) K/uL Neutrophils % (Manual) 92 H (42-75) % Band Neutrophils % 2 (0-2) % Lymphocytes % (Manual) 2 L (20-50) % Monocytes % (Manual) 4 (0-10) % Platelet Estimate Markedly decreased L (NORMAL) ESR 35 H (0-20) mm/hr PT 16.2 H (9.8-13.1) Seconds INR 1.4 H (0.9-1.2) APTT 36.5 (25.6-37.1) Seconds D-Dimer, Quantitative (0-230) ng/mlDDU Sodium 130 L (132-148) mmol/l Potassium 5.0 (3.6-5.0) MMOL/L Chloride 92 L (98-107) mmol/L Carbon Dioxide 23 (22-30) mmol/L Anion Gap 20 (10-20) BUN 72 H (9-20) mg/dl Creatinine 4.5 H (0.8-1.5) mg/dL Est GFR ( Amer) 16 Est GFR (Non-Af Amer) 14 Random Glucose 61 L (75-110) mg/dL Hemoglobin A1c (4.2-6.5) % Serum Osmolality (272-300) mosm/kg Lactic Acid (0.7-2.1) MMOL/L Calcium 8.4 (8.4-10.2) mg/dL Total Bilirubin (0.2-1.3) mg/dl AST (17-59) U/L ALT (21-72) U/L Alkaline Phosphatase (38-126) U/L Total Protein (6.3-8.2) G/DL Albumin (3.5-5.0) g/dL Globulin (2.2-3.9) gm/dL Albumin/Globulin Ratio (1.0-2.1) Urine Osmolality (300-1000) mosm/kg 01/15/17 01/15/17 Range/Units 12:22 06:35 WBC (4.8-10.8) K/uL RBC (4.40-5.90) Mil/uL Hgb (12.0-18.0) g/dL Hct (35.0-51.0) % MCV (80.0-94.0) fl MCH (27.0-31.0) pg MCHC (33.0-37.0) g/dL RDW (11.5-14.5) % Plt Count (130-400) K/uL MPV (7.2-11.7) fl Neut % (Auto) (50.0-75.0) % Lymph % (Auto) (20.0-40.0) % [place] % (Auto) (0.0-10.0) % Eos % (Auto) (0.0-4.0) % Baso % (Auto) (0.0-2.0) % Neut # (1.8-7.0) K/uL Lymph # (1.0-4.3) K/uL [place] # (0.0-0.8) K/uL Eos # (0.0-0.7) K/uL Baso # (0.0-0.2) K/uL Neutrophils % (Manual) (42-75) % Band Neutrophils % (0-2) % Lymphocytes % (Manual) (20-50) % Monocytes % (Manual) (0-10) % Platelet Estimate (NORMAL) ESR (0-20) mm/hr PT (9.8-13.1) Seconds INR (0.9-1.2) APTT (25.6-37.1) Seconds D-Dimer, Quantitative (0-230) ng/mlDDU Sodium (132-148) mmol/l Potassium (3.6-5.0) MMOL/L Chloride (98-107) mmol/L Carbon Dioxide (22-30) mmol/L Anion Gap (10-20) BUN (9-20) mg/dl Creatinine (0.8-1.5) mg/dL Est GFR ( Amer) Est GFR (Non-Af Amer) Random Glucose (75-110) mg/dL Hemoglobin A1c 6.8 H (4.2-6.5) % Serum Osmolality (272-300) mosm/kg Lactic Acid 3.8 H (0.7-2.1) MMOL/L Calcium (8.4-10.2) mg/dL Total Bilirubin (0.2-1.3) mg/dl AST (17-59) U/L ALT (21-72) U/L Alkaline Phosphatase (38-126) U/L Total Protein (6.3-8.2) G/DL Albumin (3.5-5.0) g/dL Globulin (2.2-3.9) gm/dL Albumin/Globulin Ratio (1.0-2.1) Urine Osmolality (300-1000) mosm/kg Laboratory Results - last 24 hr 01/15/17 01/15/17 01/15/17 06:35 12:22 17:15 WBC RBC Hgb Hct MCV MCH MCHC RDW Plt Count MPV Neut % (Auto) Lymph % (Auto) [place] % (Auto) Eos % (Auto) Baso % (Auto) Neut # Lymph # [place] # Eos # Baso # Neutrophils % (Manual) Band Neutrophils % Lymphocytes % (Manual) Monocytes % (Manual) Platelet Estimate ESR PT INR APTT D-Dimer, Quantitative Sodium 130 L Potassium 5.0 Chloride 92 L Carbon Dioxide 23 Anion Gap 20 BUN 72 H Creatinine 4.5 H Est GFR ( Amer) 16 Est GFR (Non-Af Amer) 14 Random Glucose 61 L Hemoglobin A1c 6.8 H Serum Osmolality Lactic Acid 3.8 H Calcium 8.4 Total Bilirubin AST ALT Alkaline Phosphatase Total Protein Albumin Globulin Albumin/Globulin Ratio Urine Osmolality 01/15/17 01/15/17 01/15/17 17:15 17:15 17:15 WBC 17.1 H RBC 4.77 Hgb 15.2 Hct 47.0 MCV 98.6 H MCH 31.8 H MCHC 32.3 L RDW 18.3 H Plt Count 82 L MPV 10.7 Neut % (Auto) 90.9 H Lymph % (Auto) 2.5 L [place] % (Auto) 4.9 Eos % (Auto) 1.2 Baso % (Auto) 0.5 Neut # 15.6 H Lymph # 0.4 L [place] # 0.8 Eos # 0.2 Baso # 0.1 Neutrophils % (Manual) 92 H Band Neutrophils % 2 Lymphocytes % (Manual) 2 L Monocytes % (Manual) 4 Platelet Estimate Markedly decreased L ESR 35 H PT 16.2 H INR 1.4 H APTT 36.5 D-Dimer, Quantitative Sodium Potassium Chloride Carbon Dioxide Anion Gap BUN Creatinine Est GFR ( Amer) Est GFR (Non-Af Amer) Random Glucose Hemoglobin A1c Serum Osmolality 380 H Lactic Acid Calcium Total Bilirubin AST ALT Alkaline Phosphatase Total Protein Albumin Globulin Albumin/Globulin Ratio Urine Osmolality 01/15/17 01/15/17 01/16/17 17:15 19:00 08:00 WBC 17.6 H RBC 4.72 Hgb 15.0 Hct 46.5 MCV 98.6 H MCH 31.8 H MCHC 32.3 L RDW 17.9 H Plt Count 77 L MPV 10.6 Neut % (Auto) 91.3 H Lymph % (Auto) 3.3 L [place] % (Auto) 4.3 Eos % (Auto) 1.0 Baso % (Auto) 0.1 Neut # 16.0 H Lymph # 0.6 L [place] # 0.8 Eos # 0.2 Baso # 0.0 Neutrophils % (Manual) Band Neutrophils % Lymphocytes % (Manual) Monocytes % (Manual) Platelet Estimate ESR PT INR APTT D-Dimer, Quantitative 755 H Sodium Potassium Chloride Carbon Dioxide Anion Gap BUN Creatinine Est GFR ( Amer) Est GFR (Non-Af Amer) Random Glucose Hemoglobin A1c Serum Osmolality Lactic Acid Calcium Total Bilirubin AST ALT Alkaline Phosphatase Total Protein Albumin Globulin Albumin/Globulin Ratio Urine Osmolality 306 01/16/17 01/16/17 08:00 08:00 WBC RBC Hgb Hct MCV MCH MCHC RDW Plt Count MPV Neut % (Auto) Lymph % (Auto) [place] % (Auto) Eos % (Auto) Baso % (Auto) Neut # Lymph # [place] # Eos # Baso # Neutrophils % (Manual) Band Neutrophils % Lymphocytes % (Manual) Monocytes % (Manual) Platelet Estimate ESR PT INR APTT D-Dimer, Quantitative Sodium 129 L Potassium 5.2 H Chloride 93 L Carbon Dioxide 22 Anion Gap 19 BUN 85 H Creatinine 5.3 H Est GFR ( Amer) 14 Est GFR (Non-Af Amer) 11 Random Glucose 86 Hemoglobin A1c Serum Osmolality Lactic Acid 2.5 H Calcium 8.2 L Total Bilirubin 2.5 H AST 98 H D ALT 78 H D Alkaline Phosphatase 83 Total Protein 6.7 Albumin 3.6 Globulin 3.2 Albumin/Globulin Ratio 1.1 Urine Osmolality Assessment/Plan - Assessment and Plan (Free Text) Assessment: A/P Sepsis, ?infected LE ulcers, CHF, A Fib, ELYSIA, hyponatremia, h/o PE/DVT, thrombocytopenia, morbid obesity, ?BELINDA - Continue meds - Renal follow up - cardiology follow up - Pulmonary toilets - Follow up labs
--- NOTE | 2017-01-16 11:41 | CP.PCM.PN ---
Subjective - Date & Time of Evaluation Date of Evaluation: 01/16/17 Time of Evaluation: 10:30 - Subjective Subjective: Awake & verbally communicative BP 112/ Objective - Vital Signs/Intake and Output Vital Signs (last 24 hours): Temp Pulse Resp BP Pulse Ox 97.8 F 94 H 22 77/50 L 91 L 01/16/17 08:00 01/16/17 08:00 01/16/17 08:00 01/16/17 08:00 01/16/17 08:00 Intake and Output: 01/16/17 01/16/17 06:59 18:59 Intake Total 1550 670 Output Total 30 Balance 1520 670 - Medications Medications: Current Medications Acetaminophen (Tylenol 325mg Tab) 650 mg PO Q6 PRN PRN Reason: Pain, Mild (1-3) Last Admin: 01/15/17 09:07 Dose: 650 mg Acetaminophen (Tylenol 325mg Tab) 650 mg PO Q6 PRN PRN Reason: Fever >100.4 F Albuterol (Ventolin Hfa 90 Mcg/Actuation (8 G)) 2 puff INH RQ6 PRN PRN Reason: Shortness of Breath Last Admin: 01/14/17 12:32 Dose: 2 puff Albuterol Sulfate (Albuterol 0.083% Inhal [place]eria (2.5 Mg/3 Ml) Ud) 2.5 mg INH RQ4 PRN PRN Reason: Shortness of Breath Clopidogrel Bisulfate (Plavix) 75 mg PO DAILY [facility] Last Admin: 01/16/17 09:53 Dose: 75 mg Collagenase (Santyl) 1 applic TOP DAILY [facility] Last Admin: 01/16/17 09:54 Dose: 1 applic Hydrocortisone (Cortizone 1% Oint) 1 applic TOP BID [facility] Last Admin: 01/16/17 09:52 Dose: 1 appl Sodium Chloride (Sodium Chloride 0.9%) 1,000 mls @ 100 mls/hr IV .Q10H [facility] Stop: 01/16/17 16:45 Last Admin: 01/15/17 18:05 Dose: 100 mls/hr Moxifloxacin HCl (Avelox Iv 400mg/250ml Ns) 400 mg in 250 mls @ 250 mls/hr IVPB DAILY [facility] Last Admin: 01/16/17 09:52 Dose: 250 mls/hr Linezolid (Zyvox 600mg/300ml D5w) 600 mg in 300 mls @ 300 mls/hr IVPB Q12 [facility] Last Admin: 01/16/17 09:55 Dose: 300 mls/hr Sodium Chloride (Sodium Chloride 0.9%) 1,000 mls @ 100 mls/hr IV .Q10H [facility] Stop: 01/16/17 19:33 Last Admin: 01/15/17 23:32 Dose: 100 mls/hr Lactic Acid (Lac-Hydrin 12% Lotion (225 G)) 1 applic TOP TID [facility] Last Admin: 01/16/17 09:53 Dose: 1 applic Nitroglycerin (Nitrostat Sl Tab) 0.4 mg SL Q5M PRN PRN Reason: chest pain Ondansetron HCl (Zofran Inj) 4 mg IVP Q4 PRN PRN Reason: Nausea/Vomiting Last Admin: 01/15/17 22:10 Dose: 4 mg Tiotropium [place] (Spiriva) 18 mcg INH DAILY [facility] Last Admin: 01/16/17 09:54 Dose: 18 mcg - Labs Labs: 01/16/17 08:00 01/16/17 08:00 PT 16.2 Seconds (9.8-13.1) H 01/15/17 17:15 INR 1.4 (0.9-1.2) H 01/15/17 17:15 APTT 36.5 Seconds (25.6-37.1) 01/15/17 17:15 - Head Exam Head Exam: ATRAUMATIC, NORMOCEPHALIC - Eye Exam Additional comments: No icterus - ENT Exam ENT Exam: Mucous Membranes Moist - Neck Exam Additional comments: supple - Respiratory Exam Additional comments: No wheezes or ehonchi - Cardiovascular Exam Cardiovascular Exam: REGULAR RHYTHM - Extremities Exam Additional comments: Edema of both LEs B/L leg ulcers dressed Assessment and Plan - Assessment and Plan (Free Text) Assessment: Anuric acute renal failure Has progressive rise in BUN/Creat & now developing hyperkalemia Hyponatremia is dilutional sec to volume overload/CHF A.fib Sepsis G+ cocci in chains in blood Leg ulcers Morbid obesity Plan: Pt needs urgent dialysis Need for dialysis & dialysis procedure were explained to the Pt & he agreed for dialysis Needs dialysis access Dialysis orders are entered
--- NOTE | 2017-01-16 13:13 | CP.PCM.PN ---
Subjective - Date & Time of Evaluation Date of Evaluation: 01/16/17 Time of Evaluation: 08:00 - Subjective Subjective: Patient seen and examined bedside. Morbidly obese patient , lying in bed , complaining of pain to his LE and abdomen. Elderly looking for his age.John labile overnight with episodes of hypotension, tachycardic HR ranging 98--111 oliguric I/O 2350/65 BUN/ Cr 85/5.3 k 5.2 Na `129 WBC 17 k Hgb 15 plt 82 K Lactic acid 2.5 Blood Cx positive for garm positicve cocci ProBNP 10 Objective - Vital Signs/Intake and Output Vital Signs (last 24 hours): Temp Pulse Resp BP Pulse Ox 97.6 F 106 H 22 82/67 L 90 L 01/16/17 12:00 01/16/17 12:00 01/16/17 12:00 01/16/17 12:00 01/16/17 12:00 Intake and Output: 01/16/17 01/16/17 06:59 18:59 Intake Total 1550 670 Output Total 30 Balance 1520 670 - Medications Medications: Current Medications Acetaminophen (Tylenol 325mg Tab) 650 mg PO Q6 PRN PRN Reason: Pain, Mild (1-3) Last Admin: 01/15/17 09:07 Dose: 650 mg Acetaminophen (Tylenol 325mg Tab) 650 mg PO Q6 PRN PRN Reason: Fever >100.4 F Albuterol (Ventolin Hfa 90 Mcg/Actuation (8 G)) 2 puff INH RQ6 PRN PRN Reason: Shortness of Breath Last Admin: 01/14/17 12:32 Dose: 2 puff Albuterol Sulfate (Albuterol 0.083% Inhal [place] (2.5 Mg/3 Ml) Ud) 2.5 mg INH RQ4 PRN PRN Reason: Shortness of Breath Clopidogrel Bisulfate (Plavix) 75 mg PO DAILY [facility] Last Admin: 01/16/17 09:53 Dose: 75 mg Collagenase (Santyl) 1 applic TOP DAILY [facility] Last Admin: 01/16/17 09:54 Dose: 1 applic Hydrocortisone (Cortizone 1% Oint) 1 applic TOP BID [facility] Last Admin: 01/16/17 09:52 Dose: 1 appl Sodium Chloride (Sodium Chloride 0.9%) 1,000 mls @ 100 mls/hr IV .Q10H [facility] Stop: 01/16/17 16:45 Last Admin: 01/15/17 18:05 Dose: 100 mls/hr Moxifloxacin HCl (Avelox Iv 400mg/250ml Ns) 400 mg in 250 mls @ 250 mls/hr IVPB DAILY [facility] Last Admin: 01/16/17 09:52 Dose: 250 mls/hr Linezolid (Zyvox 600mg/300ml D5w) 600 mg in 300 mls @ 300 mls/hr IVPB Q12 [facility] Last Admin: 01/16/17 09:55 Dose: 300 mls/hr Sodium Chloride (Sodium Chloride 0.9%) 1,000 mls @ 100 mls/hr IV .Q10H [facility] Stop: 01/16/17 19:33 Last Admin: 01/15/17 23:32 Dose: 100 mls/hr Lactic Acid (Lac-Hydrin 12% Lotion (225 G)) 1 applic TOP TID [facility] Last Admin: 01/16/17 12:05 Dose: 1 applic Nitroglycerin (Nitrostat Sl Tab) 0.4 mg SL Q5M PRN PRN Reason: chest pain Ondansetron HCl (Zofran Inj) 4 mg IVP Q4 PRN PRN Reason: Nausea/Vomiting Last Admin: 01/15/17 22:10 Dose: 4 mg Tiotropium [place] (Spiriva) 18 mcg INH DAILY [facility] Last Admin: 01/16/17 09:54 Dose: 18 mcg - Labs Labs: 01/16/17 08:00 01/16/17 08:00 PT 16.2 Seconds (9.8-13.1) H 01/15/17 17:15 INR 1.4 (0.9-1.2) H 01/15/17 17:15 APTT 36.5 Seconds (25.6-37.1) 01/15/17 17:15 - Constitutional Appears: Older Than Stated Age, Chronically Ill, Other (morbidly obese ) - Head Exam Head Exam: NORMOCEPHALIC - Eye Exam Eye Exam: Nystagmus, PERRL - ENT Exam ENT Exam: Mucous Membranes Dry - Neck Exam Neck Exam: Normal Inspection - Respiratory Exam Respiratory Exam: Accessory Muscle Use, Decreased Breath Sounds (bibasilar ), Prolonged Expiratory Phase, Rhonchi. absent: Wheezes - Cardiovascular Exam Cardiovascular Exam: Tachycardia, +S1, +S2. absent: JVD - GI/Abdominal Exam GI & Abdominal Exam: Distended (obese ), Soft, Hernia (umbilical ). absent: Tenderness - Rectal Exam Rectal Exam: Deferred - Extremities Exam Additional comments: severe bilateral lymphedema with chronic skin changes , dry scaly skin , open wound RLE lateral aspect - Neurological Exam Neurological Exam: Awake, Oriented x3 - Psychiatric Exam Psychiatric exam: Anxious, Flat Affect - Skin Skin Exam: Dry, Pallor Additional comments: chronic skin changes Assessment and Plan - Assessment and Plan (Free Text) Assessment: 56 y/o M with PMH of known CAD, PVD, systolic CHF (EF: 25-35% in 04/2015), A-Fib , COPD, DVT/PE, and gout who presents to the hospital with worsening CP radiating to R arm with some numbness/tingling, worsening SOB, and dysuria. Stated he always has SOB, but developed this CP. Also states he has had 'foul smelling urine and also c/o diffuse itching, and c/o some swelling and ulceration in his legs. Patient complains of poor appetite for 1 month. upon admission he was found to be hypotensive , tachycardic and with elevated WBC count .Patient transferred to ICU for sepsis with gram positive bacteremia. He also noticed to become oliguric with worsening renal function BUN/ Cr 85/5.3 1. Sepsis prob sec to LE Infected Ulcers BP labile with episodes of hyppotension Blood c/s positive Gram + cocci WBC elevated 17 K ID on consult: ( Dr Gardiner) Pt atient was started on IV Gentamicin and Clindamycin, received 1 dose of IV Vanco S/c Clinda and Genta due tyo renal failure. started Zyvox and Zithromax IV F/u Doppler US of LE Podiatry : Dr Parr consulted 2. Acute kidney Injury unclear etiology, BUN/Cr 85/5.2 Nephrology consulted Renal Sonogram: no hydronephrosis patient will need HD. HD catheter placed by vascular surgery Will start HD once catheter placement is confirmed 3. ACS ruled out Trop x3 negative Cardio consulted- Dr Roberts cont ASA, Plavix Echo: poor window due to obesity,unable to eval accdg to [employer] 4.Hx of PE /DVT unclear when pt had these not candidate for anticoagulation due to Thrombocytopenia f/u Doppler US of LE to r/o DVT V/Q scan to r/o PE 5. CHF compensated, systolic EF=25-35% no YANET sec to hyperkalemia and renal failure no BB due to low BP 6. A Fib rate controlled not candidate for anticoag sec to chronic low Platelet 7. Hyponatremia/ hypokalemia secondary to renal failure Nephro on consult serum and Urine Osm 8.Thrombocytopenia, chronic unclear etiology Hematology consult 9.Morbid obesity with BMI of 50.0-59.9, adult Chronic 10. DVT prophylaxis no acticoagulation due to thrombocytopenia 11. Hyperkalemia likely sec to Renal disease kayexalate given d/c YANET and Aldactone will start HD 12. Metabolic Acidosis sec to Renal Dis started Sodium Bicarb tabs 13. COPD stable cont Duoneb tx refused ADvair Bipap 14. hx of Sleep Apnea cont CPAP q hs
--- NOTE | 2017-01-16 13:13 | CP.PCM.PN ---
Subjective - Date & Time of Evaluation Date of Evaluation: 01/16/17 Time of Evaluation: 13:11 - Subjective Subjective: I D NOTE FOR HD TODAY HAVE DISCUSSED USE OF ZYVOX C [place] [facility] TODAY IN REGARD TO THROMBOCYTOPENIA WILL REVIEW ANTIBIOTIC MANAGEMENT AFTER HD Objective - Vital Signs/Intake and Output Vital Signs (last 24 hours): Temp Pulse Resp BP Pulse Ox 97.6 F 106 H 22 82/67 L 90 L 01/16/17 12:00 01/16/17 12:00 01/16/17 12:00 01/16/17 12:00 01/16/17 12:00 Intake and Output: 01/16/17 01/16/17 06:59 18:59 Intake Total 1550 670 Output Total 30 Balance 1520 670 - Medications Medications: Current Medications Acetaminophen (Tylenol 325mg Tab) 650 mg PO Q6 PRN PRN Reason: Pain, Mild (1-3) Last Admin: 01/15/17 09:07 Dose: 650 mg Acetaminophen (Tylenol 325mg Tab) 650 mg PO Q6 PRN PRN Reason: Fever >100.4 F Albuterol (Ventolin Hfa 90 Mcg/Actuation (8 G)) 2 puff INH RQ6 PRN PRN Reason: Shortness of Breath Last Admin: 01/14/17 12:32 Dose: 2 puff Albuterol Sulfate (Albuterol 0.083% Inhal Valeria (2.5 Mg/3 Ml) Ud) 2.5 mg INH RQ4 PRN PRN Reason: Shortness of Breath Clopidogrel Bisulfate (Plavix) 75 mg PO DAILY [facility] Last Admin: 01/16/17 09:53 Dose: 75 mg Collagenase (Santyl) 1 applic TOP DAILY [facility] Last Admin: 01/16/17 09:54 Dose: 1 applic Hydrocortisone (Cortizone 1% Oint) 1 applic TOP BID [facility] Last Admin: 01/16/17 09:52 Dose: 1 appl Sodium Chloride (Sodium Chloride 0.9%) 1,000 mls @ 100 mls/hr IV .Q10H [facility] Stop: 01/16/17 16:45 Last Admin: 01/15/17 18:05 Dose: 100 mls/hr Moxifloxacin HCl (Avelox Iv 400mg/250ml Ns) 400 mg in 250 mls @ 250 mls/hr IVPB DAILY [facility] Last Admin: 01/16/17 09:52 Dose: 250 mls/hr Linezolid (Zyvox 600mg/300ml D5w) 600 mg in 300 mls @ 300 mls/hr IVPB Q12 [facility] Last Admin: 01/16/17 09:55 Dose: 300 mls/hr Sodium Chloride (Sodium Chloride 0.9%) 1,000 mls @ 100 mls/hr IV .Q10H [facility] Stop: 01/16/17 19:33 Last Admin: 01/15/17 23:32 Dose: 100 mls/hr Lactic Acid (Lac-Hydrin 12% Lotion (225 G)) 1 applic TOP TID [facility] Last Admin: 01/16/17 12:05 Dose: 1 applic Nitroglycerin (Nitrostat Sl Tab) 0.4 mg SL Q5M PRN PRN Reason: chest pain Ondansetron HCl (Zofran Inj) 4 mg IVP Q4 PRN PRN Reason: Nausea/Vomiting Last Admin: 01/15/17 22:10 Dose: 4 mg Tiotropium [place] (Spiriva) 18 mcg INH DAILY [facility] Last Admin: 01/16/17 09:54 Dose: 18 mcg - Labs Labs: 01/16/17 08:00 01/16/17 08:00 PT 16.2 Seconds (9.8-13.1) H 01/15/17 17:15 INR 1.4 (0.9-1.2) H 01/15/17 17:15 APTT 36.5 Seconds (25.6-37.1) 01/15/17 17:15
--- NOTE | 2017-01-16 13:14 | CP.PCM.PN ---
Subjective - Date & Time of Evaluation Date of Evaluation: 01/16/17 Time of Evaluation: 13:00 - Subjective Subjective: patient is sitting up in bed. no chest pain or dyspnea. Objective - Vital Signs/Intake and Output Vital Signs (last 24 hours): Temp Pulse Resp BP Pulse Ox 97.6 F 106 H 22 82/67 L 90 L 01/16/17 12:00 01/16/17 12:00 01/16/17 12:00 01/16/17 12:00 01/16/17 12:00 Intake and Output: 01/16/17 01/16/17 06:59 18:59 Intake Total 1550 670 Output Total 30 Balance 1520 670 - Medications Medications: Current Medications Acetaminophen (Tylenol 325mg Tab) 650 mg PO Q6 PRN PRN Reason: Pain, Mild (1-3) Last Admin: 01/15/17 09:07 Dose: 650 mg Acetaminophen (Tylenol 325mg Tab) 650 mg PO Q6 PRN PRN Reason: Fever >100.4 F Albuterol (Ventolin Hfa 90 Mcg/Actuation (8 G)) 2 puff INH RQ6 PRN PRN Reason: Shortness of Breath Last Admin: 01/14/17 12:32 Dose: 2 puff Albuterol Sulfate (Albuterol 0.083% Inhal Valeria (2.5 Mg/3 Ml) Ud) 2.5 mg INH RQ4 PRN PRN Reason: Shortness of Breath Clopidogrel Bisulfate (Plavix) [address] [facility] Last Admin: 01/16/17 09:53 Dose: 75 mg Collagenase (Santyl) [address] [facility] Last Admin: 01/16/17 09:54 Dose: 1 applic Hydrocortisone (Cortizone 1% Oint) [address] [facility] Last Admin: 01/16/17 09:52 Dose: 1 appl Sodium Chloride (Sodium Chloride 0.9%) 1,000 mls @ 100 mls/hr IV .Q10H [facility] Stop: 01/16/17 16:45 Last Admin: 01/15/17 18:05 Dose: 100 mls/hr Moxifloxacin HCl (Avelox Iv 400mg/250ml Ns) 400 mg in 250 mls @ 250 mls/hr IVPB DAILY [facility] Last Admin: 01/16/17 09:52 Dose: 250 mls/hr Linezolid (Zyvox 600mg/300ml D5w) 600 mg in 300 mls @ 300 mls/hr IVPB Q12 [facility] Last Admin: 01/16/17 09:55 Dose: 300 mls/hr Sodium Chloride (Sodium Chloride 0.9%) 1,000 mls @ 100 mls/hr IV .Q10H [facility] Stop: 01/16/17 19:33 Last Admin: 01/15/17 23:32 Dose: 100 mls/hr Lactic Acid (Lac-Hydrin 12% Lotion (225 G)) [address] [facility] Last Admin: 01/16/17 12:05 Dose: 1 applic Nitroglycerin (Nitrostat Sl Tab) 0.4 mg SL Q5M PRN PRN Reason: chest pain Ondansetron HCl (Zofran Inj) 4 mg IVP Q4 PRN PRN Reason: Nausea/Vomiting Last Admin: 01/15/17 22:10 Dose: 4 mg Tiotropium [place] (Spiriva) [address] [facility] Last Admin: 01/16/17 09:54 Dose: 18 mcg - Labs Labs: 01/16/17 08:00 01/16/17 08:00 PT 16.2 Seconds (9.8-13.1) H 01/15/17 17:15 INR 1.4 (0.9-1.2) H 01/15/17 17:15 APTT 36.5 Seconds (25.6-37.1) 01/15/17 17:15 - Constitutional Appears: Non-toxic - Head Exam Head Exam: NORMAL INSPECTION - Eye Exam Eye Exam: Normal appearance - ENT Exam ENT Exam: Mucous Membranes Moist - Neck Exam Neck Exam: Full ROM - Respiratory Exam Respiratory Exam: Decreased Breath Sounds - Cardiovascular Exam Cardiovascular Exam: REGULAR RHYTHM - GI/Abdominal Exam GI & Abdominal Exam: Normal Bowel Sounds - Rectal Exam Rectal Exam: Deferred - Extremities Exam Extremities Exam: Pedal Edema - Back Exam Back Exam: NORMAL INSPECTION - Neurological Exam Neurological Exam: Alert - Psychiatric Exam Psychiatric exam: Normal Affect - Skin Skin Exam: Normal Color Assessment and Plan (1) Acute on chronic kidney failure Assessment & Plan: patient will need HD. no cardiovascular contraindication to HD line placement Status: Acute (2) Chronic deep venous thrombosis Assessment & Plan: medical therapy Status: Acute (3) CAD (coronary artery disease) Assessment & Plan: continue antiplatelet therapy Status: Chronic
[2017-01-16 13:30] LABS: BANDS 4 % (0-2); LYMPHOCYTE 2 % (20-50); MONOCYTE 2 % (0-10); NEUTROPHIL 92 % (42-75); PLATELET ESTIMATE DECREASED (NORMAL); TOTAL CELLS COUNTED 100
[2017-01-16 13:32] LABS: ANISOCYTOSIS SLIGHT; LARGE PLATELETS PRESENT; OVALOCYTES SLIGHT; TEARDROP CELLS SLIGHT; TOXIC GRANULATION PRESENT
--- NOTE | 2017-01-16 14:43 | CP.PCM.PN ---
Subjective - Date & Time of Evaluation Date of Evaluation: 01/16/17 Time of Evaluation: 11:00 - Subjective Subjective: 56 y/o male seen at bedside in ICU complaining of severe pain in his feet b/l. Pt is awake and responds to verbal stimuli. Pt agrees by nodding that he has pain in his feet and legs. Pt states that his dressing was changed by a nurse. Pt denies of any recent F/N/V/C. Pt's dressing is clean, dry and intact. Pt denies of any new pedal complains. Objective - Vital Signs/Intake and Output Vital Signs (last 24 hours): Temp Pulse Resp BP Pulse Ox 97.6 F 106 H 22 82/67 L 90 L 01/16/17 12:00 01/16/17 12:00 01/16/17 12:00 01/16/17 12:00 01/16/17 12:00 Intake and Output: 01/16/17 01/16/17 06:59 18:59 Intake Total 1550 670 Output Total 30 Balance 1520 670 - Medications Medications: Current Medications Acetaminophen (Tylenol 325mg Tab) 650 mg PO Q6 PRN PRN Reason: Pain, Mild (1-3) Last Admin: 01/15/17 09:07 Dose: 650 mg Acetaminophen (Tylenol 325mg Tab) 650 mg PO Q6 PRN PRN Reason: Fever >100.4 F Albuterol (Ventolin Hfa 90 Mcg/Actuation (8 G)) 2 puff INH RQ6 PRN PRN Reason: Shortness of Breath Last Admin: 01/14/17 12:32 Dose: 2 puff Albuterol Sulfate (Albuterol 0.083% Inhal Valeria (2.5 Mg/3 Ml) Ud) 2.5 mg INH RQ4 PRN PRN Reason: Shortness of Breath Clopidogrel Bisulfate (Plavix) 75 mg PO DAILY [facility] Last Admin: 01/16/17 09:53 Dose: 75 mg Collagenase (Santyl) 1 applic TOP DAILY [facility] Last Admin: 01/16/17 09:54 Dose: 1 applic Hydrocortisone (Cortizone 1% Oint) 1 applic TOP BID [facility] Last Admin: 01/16/17 09:52 Dose: 1 appl Sodium Chloride (Sodium Chloride 0.9%) 1,000 mls @ 100 mls/hr IV .Q10H [facility] Stop: 01/16/17 16:45 Last Admin: 01/15/17 18:05 Dose: 100 mls/hr Moxifloxacin HCl (Avelox Iv 400mg/250ml Ns) 400 mg in 250 mls @ 250 mls/hr IVPB DAILY [facility] Last Admin: 01/16/17 09:52 Dose: 250 mls/hr Linezolid (Zyvox 600mg/300ml D5w) 600 mg in 300 mls @ 300 mls/hr IVPB Q12 [facility] Last Admin: 01/16/17 09:55 Dose: 300 mls/hr Sodium Chloride (Sodium Chloride 0.9%) 1,000 mls @ 100 mls/hr IV .Q10H [facility] Stop: 01/16/17 19:33 Last Admin: 01/15/17 23:32 Dose: 100 mls/hr Lactic Acid (Lac-Hydrin 12% Lotion (225 G)) 1 applic TOP TID [facility] Last Admin: 01/16/17 12:05 Dose: 1 applic Nitroglycerin (Nitrostat Sl Tab) 0.4 mg SL Q5M PRN PRN Reason: chest pain Ondansetron HCl (Zofran Inj) 4 mg IVP Q4 PRN PRN Reason: Nausea/Vomiting Last Admin: 01/15/17 22:10 Dose: 4 mg Tiotropium [place] (Spiriva) 18 mcg INH DAILY [facility] Last Admin: 01/16/17 09:54 Dose: 18 mcg - Labs Labs: 01/16/17 08:00 01/16/17 08:00 PT 16.2 Seconds (9.8-13.1) H 01/15/17 17:15 INR 1.4 (0.9-1.2) H 01/15/17 17:15 APTT 36.5 Seconds (25.6-37.1) 01/15/17 17:15 - Constitutional Appears: Well, Non-toxic, No Acute Distress - Extremities Exam Additional comments: Pt's dressing is clean, dry and intact. No strike through is noted from the dressing. - Neurological Exam Neurological Exam: Awake - Psychiatric Exam Psychiatric exam: Normal Affect, Normal Mood Assessment and Plan - Assessment and Plan (Free Text) Assessment: 56 y/o male seen at bedside in ICU for pain in his legs and feet secondary to superficial ulcer and PVD Plan: Pt evaluated and chart reviewed Pt discussed in details with attending Dr. Parr Labs and vitals reviewed (afebrile, WBC @ 17.6) IV abx as per ID - pt placed on zyvox and moxifloxacin, Cardiovascular on board Dressing change performed by a nurse Nursing order in place to change dressing daily using santyl, adaptic, DSD, kurlix Podiatry to follow while patient is in house
--- NOTE | 2017-01-16 17:19 | CP.PCM.CON ---
<Daniel Falcon - Last Filed: 01/16/17 17:12> History of Present Illness - History of Present Illness History of Present Illness: General Surgery Consult note. Dr. Vinson Consulted for dialysis catheter access. Patient is a poor historian. 56yo M with PMHx of PVD s/p LE stent, CAD s/p stent, CHF, A.Fib, COPD, DVT/PE found to be in Acute renal failure. General surgery was consulted in order to obtain dialysis access. Patient states that he originally came to the hospital on 01/14 due to worsening shortness of breat and peripheral claudication upon ambulation. He also states that he has been having foul smelling urine for the past couple of days. Denies any N/V/D. No Abd pain. Does c/o diffuse bilateral lower extremity ulcers and swelling, unknown duration. PMHx: PVD, CAD, CHF, A.Fib, COPD, DVT/PE, Gout PSHx: R Fem stent 2013, Coronary stent 2010, CABG, IVC Filter placement 2012. Denies any abdominal surgeries. Family Hx: Patient does not know Social Hx: Current 1 pack per day smoker, Denies ETOH use, current Marijuana use. Lives with family. Review of Systems - Review of Systems Systems not reviewed;Unavailable: Uncooperative All systems: reviewed and no additional remarkable complaints except - Constitutional Constitutional: absent: Chills, Fever - EENT Ears: absent: Dizziness - Cardiovascular Cardiovascular: Claudication, Dyspnea, Dyspnea on Exertion, Leg Edema, Leg Ulcers. absent: Chest Pain - Respiratory Respiratory: Dyspnea - Gastrointestinal Gastrointestinal: absent: Abdominal Pain, Nausea, Vomiting Past Patient History - Infectious Disease Hx of Infectious Diseases: None - Past Medical History & Family History Past Medical History?: Yes - Past Social History Smoking Status: Heavy Smoker > 10 Cigarettes Daily - CARDIAC Hx Atrial Fibrillation: Yes Hx Congestive Heart Failure: Yes Hx Hypercholesterolemia: No Hx Hypertension: No - PULMONARY Hx Asthma: Yes Hx Chronic Obstructive Pulmonary Disease (COPD): Yes Hx Pulmonary Embolism: Yes Hx Sleep Apnea: Yes - NEUROLOGICAL HX Cerebrovascular Accident: No - HEENT Hx HEENT Problems: No - RENAL Hx Chronic Kidney Disease: No - ENDOCRINE/METABOLIC Hx Hypothyroidism: No - HEMATOLOGICAL/ONCOLOGICAL Hx Human Immunodeficiency Virus (HIV): No - INTEGUMENTARY Hx Dermatological Problems: No - MUSCULOSKELETAL/RHEUMATOLOGICAL Hx Falls: Yes Hx Unsteady Gait: Yes - GASTROINTESTINAL Hx Gastrointestinal Disorders: Yes (hernia) Other/Comment: Hernia - GENITOURINARY/GYNECOLOGICAL Hx Genitourinary Disorders: No - PSYCHIATRIC Hx Substance Use: Yes (use marijuana) - SURGICAL HISTORY Hx Coronary Artery Bypass Graft: Yes Hx Coronary Stent: Yes - ANESTHESIA Hx Anesthesia: Yes Hx Anesthesia Reactions: No Hx Malignant Hyperthermia: No Meds Allergies/Adverse Reactions: Allergies Allergy/AdvReac Type Severity Reaction Status Date / Time Penicillins Allergy URTICARIA Verified 01/26/16 08:18 - Medications Medications: Current Medications Acetaminophen (Tylenol 325mg Tab) 650 mg PO Q6 PRN PRN Reason: Pain, Mild (1-3) Last Admin: 01/15/17 09:07 Dose: 650 mg Acetaminophen (Tylenol 325mg Tab) 650 mg PO Q6 PRN PRN Reason: Fever >100.4 F Albuterol (Ventolin Hfa 90 Mcg/Actuation (8 G)) 2 puff INH RQ6 PRN PRN Reason: Shortness of Breath Last Admin: 01/14/17 12:32 Dose: 2 puff Albuterol Sulfate (Albuterol 0.083% Inhal Valeria (2.5 Mg/3 Ml) Ud) 2.5 mg INH RQ4 PRN PRN Reason: Shortness of Breath Clopidogrel Bisulfate (Plavix) 75 mg PO DAILY [facility] Last Admin: 01/16/17 09:53 Dose: 75 mg Collagenase (Santyl) 1 applic TOP DAILY [facility] Last Admin: 01/16/17 09:54 Dose: 1 applic Hydrocortisone (Cortizone 1% Oint) 1 applic TOP BID [facility] Last Admin: 01/16/17 16:18 Dose: 1 appl Moxifloxacin HCl (Avelox Iv 400mg/250ml Ns) 400 mg in 250 mls @ 250 mls/hr IVPB DAILY [facility] Last Admin: 01/16/17 09:52 Dose: 250 mls/hr Linezolid (Zyvox 600mg/300ml D5w) 600 mg in 300 mls @ 300 mls/hr IVPB Q12 [facility] Last Admin: 01/16/17 09:55 Dose: 300 mls/hr Sodium Chloride (Sodium Chloride 0.9%) 1,000 mls @ 100 mls/hr IV .Q10H [facility] Stop: 01/16/17 19:33 Last Admin: 01/15/17 23:32 Dose: 100 mls/hr Lactic Acid (Lac-Hydrin 12% Lotion (225 G)) 1 applic TOP TID [facility] Last Admin: 01/16/17 16:19 Dose: 1 applic Nitroglycerin (Nitrostat Sl Tab) 0.4 mg SL Q5M PRN PRN Reason: chest pain Ondansetron HCl (Zofran Inj) 4 mg IVP Q4 PRN PRN Reason: Nausea/Vomiting Last Admin: 01/15/17 22:10 Dose: 4 mg Tiotropium [place] (Spiriva) 18 mcg INH DAILY [facility] Last Admin: 01/16/17 09:54 Dose: 18 mcg Physical Exam - Constitutional Appears: Well, No Acute Distress - Head Exam Head Exam: ATRAUMATIC, NORMAL INSPECTION, NORMOCEPHALIC - Eye Exam Eye Exam: EOMI, Normal appearance - Cardiovascular Exam Cardiovascular Exam: absent: JVD - GI/Abdominal Exam GI & Abdominal Exam: Soft. absent: Distended, Rebound, Rigid Additional comments: Umbilical hernia present. Mild skin sloughing infra-umbilical region. Soft, Non tender, non-distended. Large Panus. Super-Morbid obesity. - Extremities Exam Extremities exam: Negative for: calf tenderness Additional comments: Bilateral lower extremity skin ulcers, erythema, edema. Large panus extending over bilateral femoral region. Diffuse skin sloughing noted bilateral lower extremity - Neurological Exam Neurological exam: Alert, Oriented x3 Results - Vital Signs Recent Vital Signs: Last Vital Signs Temp 97.6 F 01/16/17 16:00 Pulse 97 H 01/16/17 16:00 Resp 18 01/16/17 16:00 BP 112/61 01/16/17 16:00 Pulse Ox 96 01/16/17 16:00 - Labs Result Diagrams: 01/16/17 08:00 01/16/17 08:00 Labs: Laboratory Results - last 24 hr 01/15/17 01/15/17 01/15/17 17:15 17:15 17:15 WBC 17.1 H RBC 4.77 Hgb 15.2 Hct 47.0 MCV 98.6 H MCH 31.8 H MCHC 32.3 L RDW 18.3 H Plt Count 82 L MPV 10.7 Neut % (Auto) 90.9 H Lymph % (Auto) 2.5 L Clinch % (Auto) 4.9 Eos % (Auto) 1.2 Baso % (Auto) 0.5 Neut # 15.6 H Lymph # 0.4 L Clinch # 0.8 Eos # 0.2 Baso # 0.1 Neutrophils % (Manual) 92 H Band Neutrophils % 2 Lymphocytes % (Manual) 2 L Monocytes % (Manual) 4 Toxic Granulation Platelet Estimate Markedly decreased L Large Platelets Anisocytosis (manual) Tear Drop Cells Ovalocytes ESR 35 H PT 16.2 H INR 1.4 H APTT 36.5 D-Dimer, Quantitative Sodium 130 L Potassium 5.0 Chloride 92 L Carbon Dioxide 23 Anion Gap 20 BUN 72 H Creatinine 4.5 H Est GFR ( Amer) 16 Est GFR (Non-Af Amer) 14 Random Glucose 61 L Serum Osmolality Lactic Acid Calcium 8.4 Total Bilirubin AST ALT Alkaline Phosphatase C-React Prot High Sens Total Protein Albumin Globulin Albumin/Globulin Ratio Urine Osmolality 01/15/17 01/15/17 01/15/17 17:15 17:15 19:00 WBC RBC Hgb Hct MCV MCH MCHC RDW Plt Count MPV Neut % (Auto) Lymph % (Auto) Clinch % (Auto) Eos % (Auto) Baso % (Auto) Neut # Lymph # Clinch # Eos # Baso # Neutrophils % (Manual) Band Neutrophils % Lymphocytes % (Manual) Monocytes % (Manual) Toxic Granulation Platelet Estimate Large Platelets Anisocytosis (manual) Tear Drop Cells Ovalocytes ESR PT INR APTT D-Dimer, Quantitative 755 H Sodium Potassium Chloride Carbon Dioxide Anion Gap BUN Creatinine Est GFR ( Amer) Est GFR (Non-Af Amer) Random Glucose Serum Osmolality 380 H Lactic Acid Calcium Total Bilirubin AST ALT Alkaline Phosphatase C-React Prot High Sens Total Protein Albumin Globulin Albumin/Globulin Ratio Urine Osmolality 306 01/16/17 01/16/17 01/16/17 08:00 08:00 08:00 WBC 17.6 H RBC 4.72 Hgb 15.0 Hct 46.5 MCV 98.6 H MCH 31.8 H MCHC 32.3 L RDW 17.9 H Plt Count 77 L MPV 10.6 Neut % (Auto) 91.3 H Lymph % (Auto) 3.3 L Clinch % (Auto) 4.3 Eos % (Auto) 1.0 Baso % (Auto) 0.1 Neut # 16.0 H Lymph # 0.6 L Clinch # 0.8 Eos # 0.2 Baso # 0.0 Neutrophils % (Manual) 92 H Band Neutrophils % 4 H Lymphocytes % (Manual) 2 L Monocytes % (Manual) 2 Toxic Granulation Present Platelet Estimate Decreased L Large Platelets Present Anisocytosis (manual) Slight Tear Drop Cells Slight Ovalocytes Slight ESR 33 H PT INR APTT D-Dimer, Quantitative Sodium 129 L Potassium 5.2 H Chloride 93 L Carbon Dioxide 22 Anion Gap 19 BUN 85 H Creatinine 5.3 H Est GFR ( Amer) 14 Est GFR (Non-Af Amer) 11 Random Glucose 86 Serum Osmolality Lactic Acid Calcium 8.2 L Total Bilirubin 2.5 H AST 98 H D ALT 78 H D Alkaline Phosphatase 83 C-React Prot High Sens > 15.00 H Total Protein 6.7 Albumin 3.6 Globulin 3.2 Albumin/Globulin Ratio 1.1 Urine Osmolality 01/16/17 08:00 WBC RBC Hgb Hct MCV MCH MCHC RDW Plt Count MPV Neut % (Auto) Lymph % (Auto) Clinch % (Auto) Eos % (Auto) Baso % (Auto) Neut # Lymph # Clinch # Eos # Baso # Neutrophils % (Manual) Band Neutrophils % Lymphocytes % (Manual) Monocytes % (Manual) Toxic Granulation Platelet Estimate Large Platelets Anisocytosis (manual) Tear Drop Cells Ovalocytes ESR PT INR APTT D-Dimer, Quantitative Sodium Potassium Chloride Carbon Dioxide Anion Gap BUN Creatinine Est GFR ( Amer) Est GFR (Non-Af Amer) Random Glucose Serum Osmolality Lactic Acid 2.5 H Calcium Total Bilirubin AST ALT Alkaline Phosphatase C-React Prot High Sens Total Protein Albumin Globulin Albumin/Globulin Ratio Urine Osmolality Assessment & Plan - Assessment and Plan (Free Text) Assessment: 56yo M with PMHx of PVD, CAD s/p stents. Acute renal failure in need of urgent dialysis. General surgery consulted for dialysis access. - Secondary to patient's super-morbid obesity, thrombocytopenia, recent anticoagulation and dual anti-platelet therapy, Recommend vascular surgery or Interventional Radiology consultation for placement of dialysis access. - No general surgery intervention at this time - We will sign-off. Please re-consult as necessary. Daniel Falcon PGY1 <Ambrocio Vinson - Last Filed: 01/16/17 17:57> History of Present Illness - History of Present Illness History of Present Illness: Patient was seen and examined at the bedside. Agree with resident's note above. Meds - Medications Medications: Current Medications Acetaminophen (Tylenol 325mg Tab) 650 mg PO Q6 PRN PRN Reason: Pain, Mild (1-3) Last Admin: 01/15/17 09:07 Dose: 650 mg Acetaminophen (Tylenol 325mg Tab) 650 mg PO Q6 PRN PRN Reason: Fever >100.4 F Albuterol (Ventolin Hfa 90 Mcg/Actuation (8 G)) 2 puff INH RQ6 PRN PRN Reason: Shortness of Breath Last Admin: 01/14/17 12:32 Dose: 2 puff Albuterol Sulfate (Albuterol 0.083% Inhal Valeria (2.5 Mg/3 Ml) Ud) 2.5 mg INH RQ4 PRN PRN Reason: Shortness of Breath Clopidogrel Bisulfate (Plavix) 75 mg PO DAILY [facility] Last Admin: 01/16/17 09:53 Dose: 75 mg Collagenase (Santyl) 1 applic TOP DAILY [facility] Last Admin: 01/16/17 09:54 Dose: 1 applic Hydrocortisone (Cortizone 1% Oint) 1 applic TOP BID [facility] Last Admin: 01/16/17 16:18 Dose: 1 appl Moxifloxacin HCl (Avelox Iv 400mg/250ml Ns) 400 mg in 250 mls @ 250 mls/hr IVPB DAILY [facility] Last Admin: 01/16/17 09:52 Dose: 250 mls/hr Linezolid (Zyvox 600mg/300ml D5w) 600 mg in 300 mls @ 300 mls/hr IVPB Q12 [facility] Last Admin: 01/16/17 09:55 Dose: 300 mls/hr Sodium Chloride (Sodium Chloride 0.9%) 1,000 mls @ 100 mls/hr IV .Q10H [facility] Stop: 01/16/17 19:33 Last Admin: 01/15/17 23:32 Dose: 100 mls/hr Lactic Acid (Lac-Hydrin 12% Lotion (225 G)) 1 applic TOP TID [facility] Last Admin: 01/16/17 16:19 Dose: 1 applic Nitroglycerin (Nitrostat Sl Tab) 0.4 mg SL Q5M PRN PRN Reason: chest pain Ondansetron HCl (Zofran Inj) 4 mg IVP Q4 PRN PRN Reason: Nausea/Vomiting Last Admin: 01/15/17 22:10 Dose: 4 mg Tiotropium [place] (Spiriva) 18 mcg INH DAILY [facility] Last Admin: 01/16/17 09:54 Dose: 18 mcg Results - Vital Signs Recent Vital Signs: Last Vital Signs Temp 97.6 F 01/16/17 16:00 Pulse 97 H 01/16/17 16:00 Resp 18 01/16/17 16:00 BP 112/61 01/16/17 16:00 Pulse Ox 96 01/16/17 16:00 - Labs Result Diagrams: 01/16/17 08:00 01/16/17 08:00 Labs: Laboratory Results - last 24 hr 01/15/17 01/15/17 01/15/17 17:15 17:15 17:15 WBC RBC Hgb Hct MCV MCH MCHC RDW Plt Count MPV Neut % (Auto) Lymph % (Auto) Clinch % (Auto) Eos % (Auto) Baso % (Auto) Neut # Lymph # Clinch # Eos # Baso # Neutrophils % (Manual) 92 H Band Neutrophils % 2 Lymphocytes % (Manual) 2 L Monocytes % (Manual) 4 Toxic Granulation Platelet Estimate Markedly decreased L Large Platelets Anisocytosis (manual) Tear Drop Cells Ovalocytes ESR 35 H PT 16.2 H INR 1.4 H APTT 36.5 D-Dimer, Quantitative Sodium 130 L Potassium 5.0 Chloride 92 L Carbon Dioxide 23 Anion Gap 20 BUN 72 H Creatinine 4.5 H Est GFR ( Amer) 16 Est GFR (Non-Af Amer) 14 Random Glucose 61 L Serum Osmolality Lactic Acid Calcium 8.4 Total Bilirubin AST ALT Alkaline Phosphatase C-React Prot High Sens Total Protein Albumin Globulin Albumin/Globulin Ratio Urine Osmolality 01/15/17 01/15/17 01/15/17 17:15 17:15 19:00 WBC RBC Hgb Hct MCV MCH MCHC RDW Plt Count MPV Neut % (Auto) Lymph % (Auto) Clinch % (Auto) Eos % (Auto) Baso % (Auto) Neut # Lymph # Clinch # Eos # Baso # Neutrophils % (Manual) Band Neutrophils % Lymphocytes % (Manual) Monocytes % (Manual) Toxic Granulation Platelet Estimate Large Platelets Anisocytosis (manual) Tear Drop Cells Ovalocytes ESR PT INR APTT D-Dimer, Quantitative 755 H Sodium Potassium Chloride Carbon Dioxide Anion Gap BUN Creatinine Est GFR ( Amer) Est GFR (Non-Af Amer) Random Glucose Serum Osmolality 380 H Lactic Acid Calcium Total Bilirubin AST ALT Alkaline Phosphatase C-React Prot High Sens Total Protein Albumin Globulin Albumin/Globulin Ratio Urine Osmolality 306 01/16/17 01/16/17 01/16/17 08:00 08:00 08:00 WBC 17.6 H RBC 4.72 Hgb 15.0 Hct 46.5 MCV 98.6 H MCH 31.8 H MCHC 32.3 L RDW 17.9 H Plt Count 77 L MPV 10.6 Neut % (Auto) 91.3 H Lymph % (Auto) 3.3 L Clinch % (Auto) 4.3 Eos % (Auto) 1.0 Baso % (Auto) 0.1 Neut # 16.0 H Lymph # 0.6 L Clinch # 0.8 Eos # 0.2 Baso # 0.0 Neutrophils % (Manual) 92 H Band Neutrophils % 4 H Lymphocytes % (Manual) 2 L Monocytes % (Manual) 2 Toxic Granulation Present Platelet Estimate Decreased L Large Platelets Present Anisocytosis (manual) Slight Tear Drop Cells Slight Ovalocytes Slight ESR 33 H PT INR APTT D-Dimer, Quantitative Sodium 129 L Potassium 5.2 H Chloride 93 L Carbon Dioxide 22 Anion Gap 19 BUN 85 H Creatinine 5.3 H Est GFR ( Amer) 14 Est GFR (Non-Af Amer) 11 Random Glucose 86 Serum Osmolality Lactic Acid Calcium 8.2 L Total Bilirubin 2.5 H AST 98 H D ALT 78 H D Alkaline Phosphatase 83 C-React Prot High Sens > 15.00 H Total Protein 6.7 Albumin 3.6 Globulin 3.2 Albumin/Globulin Ratio 1.1 Urine Osmolality 01/16/17 08:00 WBC RBC Hgb Hct MCV MCH MCHC RDW Plt Count MPV Neut % (Auto) Lymph % (Auto) Clinch % (Auto) Eos % (Auto) Baso % (Auto) Neut # Lymph # Clinch # Eos # Baso # Neutrophils % (Manual) Band Neutrophils % Lymphocytes % (Manual) Monocytes % (Manual) Toxic Granulation Platelet Estimate Large Platelets Anisocytosis (manual) Tear Drop Cells Ovalocytes ESR PT INR APTT D-Dimer, Quantitative Sodium Potassium Chloride Carbon Dioxide Anion Gap BUN Creatinine Est GFR ( Amer) Est GFR (Non-Af Amer) Random Glucose Serum Osmolality Lactic Acid 2.5 H Calcium Total Bilirubin AST ALT Alkaline Phosphatase C-React Prot High Sens Total Protein Albumin Globulin Albumin/Globulin Ratio Urine Osmolality Assessment & Plan - Assessment and Plan (Free Text) Plan: - Recommend vascular surgery or Interventional radiology consultation for placement of dialysis catheter - No general surgery intervention at present time - please re-consult as needed
--- NOTE | 2017-01-16 17:48 | US ---
PROCEDURE: Bilateral lower extremity venous duplex Doppler. HISTORY: Rule out DVT COMPARISON: Comparison made with prior study 05/01/2015. TECHNIQUE: Bilateral common femoral, superficial femoral, popliteal and posterior tibial veins were evaluated. Flow was assessed with color Doppler, compressibility, assessment of phasic flow and augmentation response. FINDINGS: The examination is quite limited due to diffuse lower extremity subcutaneous edema. The right common femoral, and proximal superficial femoral veins are patent without evidence of DVT. . . Note that the mid and distal superficial femoral, popliteal and posterior tibial veins not visualized on this the exam. The left common femoral, proximal superficial femoral veins and popliteal veins are patent without evidence of DVT. The distal left superficial femoral vein and popliteal veins not visualized Impression: Limited study due to subcutaneous edema. . The right and left common femoral, proximal superficial femoral and left popliteal veins are patent. Note that the mid and distal cysts right and left superficial femoral veins, posterior tibial vein and right popliteal vein not visualized on this exam and therefore DVT cannot be excluded.
--- NOTE | 2017-01-16 20:03 | CT ---
EXAM: CT Right Lower Extremity Without Intravenous Contrast CLINICAL HISTORY: 56 years old, male; Pain and signs and symptoms; Cellulitis and difficulty in walking and edema; Yes, it is localized; Hip and lower leg and thigh and toes; Right; Patient HX: Obese. Pain/swelling; Additional info: Lower leg to R/O abscess TECHNIQUE: Axial computed tomography images of the right lower extremity without intravenous contrast. This CT exam was performed using one or more of the following dose reduction techniques: automated exposure control, adjustment of the mA and/or kV according to patient size, and/or use of iterative reconstruction technique. Coronal and sagittal reformatted images were created and reviewed. EXAM DATE/TIME: 01/16/2017 5:47 PM COMPARISON: None is available. FINDINGS: BONES/JOINTS: Mild chronic deformity of the proximal tibia, which may be secondary to a remote fracture. Bony structures appear osteopenic. Mild osteoarthritic changes at the knee joint. No evidence of lytic, destructive bony changes or aggressive periosteal reaction to suggest osteomyelitis. No acute fractures are seen. No evidence of acute dislocation. SOFT TISSUES: Diffuse subcutaneous edema. This is seen throughout the right lower extremity diffusely, but it is greatest in the right calf and forefoot, where there is marked, circumferential subcutaneous fluid seen. Numerous, small soft tissue calcifications seen throughout the calf, localized to the subcutaneous fat, of uncertain etiology, but are not felt to be of acute clinical significance. Fat-containing inguinal hernia on the right. No evidence of a focal, measurable, walled off soft tissue fluid collection to suggest a drainable soft tissues abscess. No evidence of soft tissue gas. No evidence of soft tissue hematoma. VASCULATURE: Multiple collateral vessels seen in the right groin and upper thigh soft tissues, suggestive of some type of chronic venous obstruction. Atherosclerotic calcification. Stent is noted in the right superficial femoral artery. LYMPH NODES: Mild lymphadenopathy in the right groin region. The largest lymph node measures 3 x 2.5 cm. This may be reactive in etiology. No evidence of diffuse pathologic lymphadenopathy. TUBES, LINES AND DEVICES: Catheter is noted in the urethra. IMPRESSION: - Diffuse subcutaneous edema, greatest in the calf and proximal forefoot, where there is marked subcutaneous fluid. There is no definite focal soft tissue abscess seen on this unenhanced exam or evidence of soft tissue gas. - See above for remaining findings.
--- NOTE | 2017-01-17 02:45 | CP.PCM.CON ---
History of Present Illness - History of Present Illness History of Present Illness: 56 year old male with a history of morbid obesity, DVT/PE with IVC filter, COPD , CAD and PAD s/p stent, admitted with chest pain, found to be in renal failure with thrombocytopenia. The patient denies abnormal blood counts in the past. He denies abnormal bleeding and bruising. Review of his medical records shows his thrombocytopenia has been chronic from 2013. His plt count has ranged from 70- 120,000. Past medical history: morbid obesity, DVT/PE with IVC filter, COPD, CAD, PAD Past surgical history: None Family history: Denies hematologic and oncologic problems Social history: 1-2ppd x 40 years, denies alcohol, and illicit drug use. Allergies: Penicillins Review of systems: All remaining review of systems including HEENT, cardiovascular, respiratory, gastrointestinal, genitourinary, musculoskeletal, dermatologic, neurologic, and psychiatric are negative unless mentioned in the HPI. Past Patient History - Infectious Disease Hx of Infectious Diseases: None - Past Medical History & Family History Past Medical History?: Yes - Past Social History Smoking Status: Heavy Smoker > 10 Cigarettes Daily - CARDIAC Hx Atrial Fibrillation: Yes Hx Congestive Heart Failure: Yes Hx Hypercholesterolemia: No Hx Hypertension: No - PULMONARY Hx Asthma: Yes Hx Chronic Obstructive Pulmonary Disease (COPD): Yes Hx Pulmonary Embolism: Yes Hx Sleep Apnea: Yes - NEUROLOGICAL HX Cerebrovascular Accident: No - HEENT Hx HEENT Problems: No - RENAL Hx Chronic Kidney Disease: No - ENDOCRINE/METABOLIC Hx Hypothyroidism: No - HEMATOLOGICAL/ONCOLOGICAL Hx Human Immunodeficiency Virus (HIV): No - INTEGUMENTARY Hx Dermatological Problems: No - MUSCULOSKELETAL/RHEUMATOLOGICAL Hx Falls: Yes Hx Unsteady Gait: Yes - GASTROINTESTINAL Hx Gastrointestinal Disorders: Yes (hernia) Other/Comment: Hernia - GENITOURINARY/GYNECOLOGICAL Hx Genitourinary Disorders: No - PSYCHIATRIC Hx Substance Use: Yes (use marijuana) - SURGICAL HISTORY Hx Coronary Artery Bypass Graft: Yes Hx Coronary Stent: Yes - ANESTHESIA Hx Anesthesia: Yes Hx Anesthesia Reactions: No Hx Malignant Hyperthermia: No Meds Allergies/Adverse Reactions: Allergies Allergy/AdvReac Type Severity Reaction Status Date / Time Penicillins Allergy URTICARIA Verified 01/26/16 08:18 - Medications Medications: Current Medications Acetaminophen (Tylenol 325mg Tab) 650 mg PO Q6 PRN PRN Reason: Pain, Mild (1-3) Last Admin: 01/15/17 09:07 Dose: 650 mg Acetaminophen (Tylenol 325mg Tab) 650 mg PO Q6 PRN PRN Reason: Fever >100.4 F Albuterol (Ventolin Hfa 90 Mcg/Actuation (8 G)) 2 puff INH RQ6 PRN PRN Reason: Shortness of Breath Last Admin: 01/14/17 12:32 Dose: 2 puff Albuterol Sulfate (Albuterol 0.083% Inhal Valeria (2.5 Mg/3 Ml) Ud) 2.5 mg INH RQ4 PRN PRN Reason: Shortness of Breath Clopidogrel Bisulfate (Plavix) 75 mg PO DAILY [facility] Last Admin: 01/16/17 09:53 Dose: 75 mg Collagenase (Santyl) 1 applic TOP DAILY [facility] Last Admin: 01/16/17 09:54 Dose: 1 applic Hydrocortisone (Cortizone 1% Oint) 1 applic TOP BID [facility] Last Admin: 01/16/17 16:18 Dose: 1 appl Moxifloxacin HCl (Avelox Iv 400mg/250ml Ns) 400 mg in 250 mls @ 250 mls/hr IVPB DAILY [facility] Last Admin: 01/16/17 09:52 Dose: 250 mls/hr Linezolid (Zyvox 600mg/300ml D5w) 600 mg in 300 mls @ 300 mls/hr IVPB Q12 [facility] Last Admin: 01/16/17 20:45 Dose: 300 mls/hr Lactic Acid (Lac-Hydrin 12% Lotion (225 G)) 1 applic TOP TID [facility] Last Admin: 01/16/17 16:19 Dose: 1 applic Nitroglycerin (Nitrostat Sl Tab) 0.4 mg SL Q5M PRN PRN Reason: chest pain Ondansetron HCl (Zofran Inj) 4 mg IVP Q4 PRN PRN Reason: Nausea/Vomiting Last Admin: 01/16/17 21:18 Dose: 4 mg Tiotropium [place] (Spiriva) 18 mcg INH DAILY [facility] Last Admin: 01/16/17 09:54 Dose: 18 mcg Physical Exam - Head Exam Head Exam: ATRAUMATIC - Eye Exam Eye Exam: Normal appearance - ENT Exam ENT Exam: Mucous Membranes Dry - Respiratory Exam Respiratory Exam: Decreased Breath Sounds - Cardiovascular Exam Cardiovascular Exam: +S1, +S2 - GI/Abdominal Exam GI & Abdominal Exam: Normal Bowel Sounds - Extremities Exam Extremities exam: Positive for: pedal edema - Neurological Exam Neurological exam: Oriented x3 - Psychiatric Exam Psychiatric exam: Normal Affect, Normal Mood - Skin Skin Exam: Warm Results - Vital Signs Recent Vital Signs: Last Vital Signs Temp 97.7 F 01/16/17 20:00 Pulse 99 H 01/16/17 20:00 Resp 17 01/16/17 20:00 BP 109/82 01/16/17 20:00 Pulse Ox 94 L 01/16/17 20:00 - Labs Result Diagrams: 01/16/17 08:00 01/16/17 08:00 Labs: Laboratory Results - last 24 hr 01/16/17 01/16/17 01/16/17 08:00 08:00 08:00 WBC 17.6 H RBC 4.72 Hgb 15.0 Hct 46.5 MCV 98.6 H MCH 31.8 H MCHC 32.3 L RDW 17.9 H Plt Count 77 L MPV 10.6 Neut % (Auto) 91.3 H Lymph % (Auto) 3.3 L [place] % (Auto) 4.3 Eos % (Auto) 1.0 Baso % (Auto) 0.1 Neut # 16.0 H Lymph # 0.6 L [place] # 0.8 Eos # 0.2 Baso # 0.0 Neutrophils % (Manual) 92 H Band Neutrophils % 4 H Lymphocytes % (Manual) 2 L Monocytes % (Manual) 2 Toxic Granulation Present Platelet Estimate Decreased L Large Platelets Present Anisocytosis (manual) Slight Tear Drop Cells Slight Ovalocytes Slight ESR 33 H Sodium 129 L Potassium 5.2 H Chloride 93 L Carbon Dioxide 22 Anion Gap 19 BUN 85 H Creatinine 5.3 H Est GFR ( Amer) 14 Est GFR (Non-Af Amer) 11 Random Glucose 86 Lactic Acid Calcium 8.2 L Total Bilirubin 2.5 H AST 98 H D ALT 78 H D Alkaline Phosphatase 83 C-React Prot High Sens > 15.00 H Total Protein 6.7 Albumin 3.6 Globulin 3.2 Albumin/Globulin Ratio 1.1 Stool Occult Blood C. difficile Ag & Toxin 01/16/17 01/16/17 01/16/17 08:00 18:00 18:30 WBC RBC Hgb Hct MCV MCH MCHC RDW Plt Count MPV Neut % (Auto) Lymph % (Auto) [place] % (Auto) Eos % (Auto) Baso % (Auto) Neut # Lymph # [place] # Eos # Baso # Neutrophils % (Manual) Band Neutrophils % Lymphocytes % (Manual) Monocytes % (Manual) Toxic Granulation Platelet Estimate Large Platelets Anisocytosis (manual) Tear Drop Cells Ovalocytes ESR Sodium Potassium Chloride Carbon Dioxide Anion Gap BUN Creatinine Est GFR ( Amer) Est GFR (Non-Af Amer) Random Glucose Lactic Acid 2.5 H Calcium Total Bilirubin AST ALT Alkaline Phosphatase C-React Prot High Sens Total Protein Albumin Globulin Albumin/Globulin Ratio Stool Occult Blood Positive H C. difficile Ag & Toxin Negative Assessment & Plan (1) Thrombocytopenia Assessment and Plan: chronic ?ITP hepatitis panel and HIV negative okay to use antiplatelet/anticoagulation if plt > 50,000 Status: Acute (2) Coagulopathy Assessment and Plan: nutritional Status: Acute (3) Elevated white blood cell count Assessment and Plan: on antibiotics Status: Acute (4) History of pulmonary embolism Assessment and Plan: with DVT s/p IVC filter Status: Acute (5) Tobacco abuse Assessment and Plan: smoking cessation discussed at length Thank you for this interesting consult. Status: Acute
[2017-01-17 06:43] LABS: HEMOGLOBIN 14.4 g/dL (12.0-18.0); MEAN CELL VOLUME 97.3 fl (80.0-94.0); MEAN CORPUSCULAR HEMOGLOBIN 31.6 pg (27.0-31.0); MEAN CORPUSCULAR HGB CONC 32.5 g/dL (33.0-37.0); RBC 4.56 Mil/uL (4.40-5.90); RED CELL DISTRIBUTION WIDTH 17.3 % (11.5-14.5); WHITE BLOOD COUNT 19.2 K/uL (4.8-10.8)
[2017-01-17 06:55] LABS: ALBUMIN 3.3 g/dL (3.5-5.0); CALCIUM 8.1 mg/dL (8.4-10.2)
[2017-01-17 06:58] LABS: INR 1.4 (0.9-1.2); PROTHROMBIN TIME 15.9 Seconds (9.8-13.1)
--- NOTE | 2017-01-17 07:40 | CP.CCUPN ---
CCU Subjective - Physician Review Events Since Last Encounter (Free Text): 01/17/17 07:39 Patient awake, no distress, no fever, no pressors, had dialysis, follow commands , events reviewed CCU Objective - Vital Signs / Intake & Output Vital Signs (Last 4 hours): Vital Signs Temp Pulse Resp BP Pulse Ox 01/17/17 06:00 100 H 27 H 120/73 92 L 01/17/17 04:00 97.6 F 99 H 23 93/72 L 95 Intake and Output (Last 8hrs): Intake & Output 01/16/17 01/17/17 01/17/17 22:59 06:59 14:59 Intake Total 1200 840 Output Total 25 360 Balance 1175 480 Intake: IV 1200 300 Intake, Piggyback 300 Oral 240 Output: Urine 25 60 Urethral (Monk) 60 Urine, Voided 25 Ultrafiltrate 300 Other: # Bowel Movements 1 2 - Physical Exam Head: Positive for: Atraumatic, Normocephalic Pupils: Positive for: PERRL Extroacular Muscles: Positive for: EOMI Conjunctiva: Positive for: Normal Ears: Positive for: Normal Mouth: Negative for: Moist Mucous Membranes, Normal Lips Pharnyx: Positive for: Normal Nose (External): Positive for: Atraumatic Nose (Internal): Positive for: Normal Inspection, No Active Bleeding Neck: Positive for: Normal Range of Motion. Negative for: Meningeal Signs, JVD , Lymphadenopathy Respiratory/Chest: Positive for: Decreased Breath Sounds Cardiovascular: Positive for: Normal S1, S2, Irregular Rhythm Abdomen: Positive for: Normal Bowel Sounds. Negative for: Tenderness Back: Positive for: Normal Inspection. Negative for: CVA Tenderness Upper Extremity: Positive for: Normal Inspection Lower Extremity: Positive for: Normal Inspection Neurological: Positive for: GCS=15, CN II-XII Intact, Speech Normal. Negative for: Norm Deep Tendon Reflexes Skin: Positive for: Warm, Dry, Rashes, Normal Color Psychiatric: Positive for: Alert, Oriented x 3 - Medications Active Medications: Active Medications Generic Name Dose Route Start Last Admin Trade Name Freq PRN Reason Stop Dose Admin Acetaminophen 650 mg 01/14/17 04:01 01/15/17 09:07 Tylenol 325mg Tab PO 650 mg Q6 PRN Administration Pain, Mild (1-3) Acetaminophen 650 mg 01/14/17 04:01 Tylenol 325mg Tab PO Q6 PRN Fever >100.4 F Albuterol 2 puff 01/14/17 04:55 01/14/17 12:32 Ventolin Hfa 90 Mcg/Actuation (8 G) INH 2 puff RQ6 PRN Administration Shortness of Breath Albuterol Sulfate 2.5 mg 01/15/17 05:09 Albuterol 0.083% Inhal Valeria (2.5 Mg/3 Ml) Ud INH RQ4 PRN Shortness of Breath Clopidogrel Bisulfate 75 mg 01/14/17 09:00 01/16/17 09:53 Plavix PO 75 mg DAILY [facility] Administration Collagenase 1 applic 01/15/17 14:45 01/16/17 09:54 Santyl TOP 1 applic DAILY [facility] Administration Hydrocortisone 1 applic 01/14/17 09:00 01/16/17 16:18 Cortizone 1% Oint TOP 1 appl BID [facility] Administration Moxifloxacin HCl 400 mg in 250 mls @ 250 mls/hr 01/16/17 09:00 01/16/17 09:52 Avelox Iv 400mg/250ml Ns IVPB 250 mls/hr DAILY [facility] Administration Linezolid 600 mg in 300 mls @ 300 mls/hr 01/15/17 21:00 01/16/17 20:45 Zyvox 600mg/300ml D5w IVPB 300 mls/hr Q12 [facility] Administration Lactic Acid 1 applic 01/15/17 17:00 01/16/17 16:19 Lac-Hydrin 12% Lotion (225 G) TOP 1 applic TID [facility] Administration Nitroglycerin 0.4 mg 01/14/17 04:01 Nitrostat Sl Tab SL Q5M PRN chest pain Ondansetron HCl 4 mg 01/14/17 21:10 01/17/17 03:49 Zofran Inj IVP 4 mg Q4 PRN Administration Nausea/Vomiting Pantoprazole Sodium 40 mg 01/17/17 09:00 Protonix Inj IVP DAILY [facility] Tiotropium [place] 18 mcg 01/14/17 09:00 01/16/17 09:54 Spiriva INH 18 mcg DAILY [facility] Administration - Patient Studies Lab Studies: Microbiology Studies 01/15/17 00:40 Blood Culture - Preliminary Blood-Venous NO GROWTH AFTER 48 HOURS Lab Studies 01/17/17 01/17/17 01/17/17 Range/Units 06:30 06:30 06:30 WBC 19.2 H (4.8-10.8) K/uL RBC 4.56 (4.40-5.90) Mil/uL Hgb 14.4 (12.0-18.0) g/dL Hct 44.4 (35.0-51.0) % MCV 97.3 H (80.0-94.0) fl MCH 31.6 H (27.0-31.0) pg MCHC 32.5 L (33.0-37.0) g/dL RDW 17.3 H (11.5-14.5) % Plt Count 60 L (130-400) K/uL MPV (7.2-11.7) fl Neut % (Auto) (50.0-75.0) % Lymph % (Auto) (20.0-40.0) % [place] % (Auto) (0.0-10.0) % Eos % (Auto) (0.0-4.0) % Baso % (Auto) (0.0-2.0) % Neut # (1.8-7.0) K/uL Lymph # (1.0-4.3) K/uL [place] # (0.0-0.8) K/uL Eos # (0.0-0.7) K/uL Baso # (0.0-0.2) K/uL Neutrophils % (Manual) (42-75) % Band Neutrophils % (0-2) % Lymphocytes % (Manual) (20-50) % Monocytes % (Manual) (0-10) % Toxic Granulation Platelet Estimate (NORMAL) Large Platelets Anisocytosis (manual) Tear Drop Cells Ovalocytes ESR (0-20) mm/hr PT 15.9 H (9.8-13.1) Seconds INR 1.4 H (0.9-1.2) Sodium 132 (132-148) mmol/l Potassium 4.6 (3.6-5.0) MMOL/L Chloride 94 L (98-107) mmol/L Carbon Dioxide 22 (22-30) mmol/L Anion Gap 21 H (10-20) BUN 82 H (9-20) mg/dl Creatinine 5.4 H (0.8-1.5) mg/dL Est GFR ( Amer) 13 Est GFR (Non-Af Amer) 11 Random Glucose 72 L (75-110) mg/dL Lactic Acid (0.7-2.1) MMOL/L Calcium 8.1 L (8.4-10.2) mg/dL Total Bilirubin 2.3 H (0.2-1.3) mg/dl AST 84 H (17-59) U/L ALT 75 H (21-72) U/L Alkaline Phosphatase 96 (38-126) U/L C-React Prot High Sens (1.00-3.00) mg/L Total Protein 6.6 (6.3-8.2) G/DL Albumin 3.3 L (3.5-5.0) g/dL Globulin 3.2 (2.2-3.9) gm/dL Albumin/Globulin Ratio 1.0 (1.0-2.1) Stool Occult Blood (NEGATIVE) C. difficile Ag & Toxin (NEGATIVE) 01/16/17 01/16/17 01/16/17 Range/Units 18:30 18:00 08:00 WBC (4.8-10.8) K/uL RBC (4.40-5.90) Mil/uL Hgb (12.0-18.0) g/dL Hct (35.0-51.0) % MCV (80.0-94.0) fl MCH (27.0-31.0) pg MCHC (33.0-37.0) g/dL RDW (11.5-14.5) % Plt Count (130-400) K/uL MPV (7.2-11.7) fl Neut % (Auto) (50.0-75.0) % Lymph % (Auto) (20.0-40.0) % [place] % (Auto) (0.0-10.0) % Eos % (Auto) (0.0-4.0) % Baso % (Auto) (0.0-2.0) % Neut # (1.8-7.0) K/uL Lymph # (1.0-4.3) K/uL [place] # (0.0-0.8) K/uL Eos # (0.0-0.7) K/uL Baso # (0.0-0.2) K/uL Neutrophils % (Manual) (42-75) % Band Neutrophils % (0-2) % Lymphocytes % (Manual) (20-50) % Monocytes % (Manual) (0-10) % Toxic Granulation Platelet Estimate (NORMAL) Large Platelets Anisocytosis (manual) Tear Drop Cells Ovalocytes ESR (0-20) mm/hr PT (9.8-13.1) Seconds INR (0.9-1.2) Sodium (132-148) mmol/l Potassium (3.6-5.0) MMOL/L Chloride (98-107) mmol/L Carbon Dioxide (22-30) mmol/L Anion Gap (10-20) BUN (9-20) mg/dl Creatinine (0.8-1.5) mg/dL Est GFR ( Amer) Est GFR (Non-Af Amer) Random Glucose (75-110) mg/dL Lactic Acid 2.5 H (0.7-2.1) MMOL/L Calcium (8.4-10.2) mg/dL Total Bilirubin (0.2-1.3) mg/dl AST (17-59) U/L ALT (21-72) U/L Alkaline Phosphatase (38-126) U/L C-React Prot High Sens (1.00-3.00) mg/L Total Protein (6.3-8.2) G/DL Albumin (3.5-5.0) g/dL Globulin (2.2-3.9) gm/dL Albumin/Globulin Ratio (1.0-2.1) Stool Occult Blood Positive H (NEGATIVE) C. difficile Ag & Toxin Negative (NEGATIVE) 01/16/17 01/16/17 01/16/17 Range/Units 08:00 08:00 08:00 WBC 17.6 H (4.8-10.8) K/uL RBC 4.72 (4.40-5.90) Mil/uL Hgb 15.0 (12.0-18.0) g/dL Hct 46.5 (35.0-51.0) % MCV 98.6 H (80.0-94.0) fl MCH 31.8 H (27.0-31.0) pg MCHC 32.3 L (33.0-37.0) g/dL RDW 17.9 H (11.5-14.5) % Plt Count 77 L (130-400) K/uL MPV 10.6 (7.2-11.7) fl Neut % (Auto) 91.3 H (50.0-75.0) % Lymph % (Auto) 3.3 L (20.0-40.0) % [place] % (Auto) 4.3 (0.0-10.0) % Eos % (Auto) 1.0 (0.0-4.0) % Baso % (Auto) 0.1 (0.0-2.0) % Neut # 16.0 H (1.8-7.0) K/uL Lymph # 0.6 L (1.0-4.3) K/uL [place] # 0.8 (0.0-0.8) K/uL Eos # 0.2 (0.0-0.7) K/uL Baso # 0.0 (0.0-0.2) K/uL Neutrophils % (Manual) 92 H (42-75) % Band Neutrophils % 4 H (0-2) % Lymphocytes % (Manual) 2 L (20-50) % Monocytes % (Manual) 2 (0-10) % Toxic Granulation Present Platelet Estimate Decreased L (NORMAL) Large Platelets Present Anisocytosis (manual) Slight Tear Drop Cells Slight Ovalocytes Slight ESR 33 H (0-20) mm/hr PT (9.8-13.1) Seconds INR (0.9-1.2) Sodium 129 L (132-148) mmol/l Potassium 5.2 H (3.6-5.0) MMOL/L Chloride 93 L (98-107) mmol/L Carbon Dioxide 22 (22-30) mmol/L Anion Gap 19 (10-20) BUN 85 H (9-20) mg/dl Creatinine 5.3 H (0.8-1.5) mg/dL Est GFR ( Amer) 14 Est GFR (Non-Af Amer) 11 Random Glucose 86 (75-110) mg/dL Lactic Acid (0.7-2.1) MMOL/L Calcium 8.2 L (8.4-10.2) mg/dL Total Bilirubin 2.5 H (0.2-1.3) mg/dl AST 98 H D (17-59) U/L ALT 78 H D (21-72) U/L Alkaline Phosphatase 83 (38-126) U/L C-React Prot High Sens > 15.00 H (1.00-3.00) mg/L Total Protein 6.7 (6.3-8.2) G/DL Albumin 3.6 (3.5-5.0) g/dL Globulin 3.2 (2.2-3.9) gm/dL Albumin/Globulin Ratio 1.1 (1.0-2.1) Stool Occult Blood (NEGATIVE) C. difficile Ag & Toxin (NEGATIVE) Laboratory Results - last 24 hr 01/16/17 01/16/17 01/16/17 08:00 08:00 08:00 WBC 17.6 H RBC 4.72 Hgb 15.0 Hct 46.5 MCV 98.6 H MCH 31.8 H MCHC 32.3 L RDW 17.9 H Plt Count 77 L MPV 10.6 Neut % (Auto) 91.3 H Lymph % (Auto) 3.3 L [place] % (Auto) 4.3 Eos % (Auto) 1.0 Baso % (Auto) 0.1 Neut # 16.0 H Lymph # 0.6 L [place] # 0.8 Eos # 0.2 Baso # 0.0 Neutrophils % (Manual) 92 H Band Neutrophils % 4 H Lymphocytes % (Manual) 2 L Monocytes % (Manual) 2 Toxic Granulation Present Platelet Estimate Decreased L Large Platelets Present Anisocytosis (manual) Slight Tear Drop Cells Slight Ovalocytes Slight ESR 33 H PT INR Sodium 129 L Potassium 5.2 H Chloride 93 L Carbon Dioxide 22 Anion Gap 19 BUN 85 H Creatinine 5.3 H Est GFR ( Amer) 14 Est GFR (Non-Af Amer) 11 Random Glucose 86 Lactic Acid Calcium 8.2 L Total Bilirubin 2.5 H AST 98 H D ALT 78 H D Alkaline Phosphatase 83 C-React Prot High Sens > 15.00 H Total Protein 6.7 Albumin 3.6 Globulin 3.2 Albumin/Globulin Ratio 1.1 Stool Occult Blood C. difficile Ag & Toxin 01/16/17 01/16/17 01/16/17 08:00 18:00 18:30 WBC RBC Hgb Hct MCV MCH MCHC RDW Plt Count MPV Neut % (Auto) Lymph % (Auto) [place] % (Auto) Eos % (Auto) Baso % (Auto) Neut # Lymph # [place] # Eos # Baso # Neutrophils % (Manual) Band Neutrophils % Lymphocytes % (Manual) Monocytes % (Manual) Toxic Granulation Platelet Estimate Large Platelets Anisocytosis (manual) Tear Drop Cells Ovalocytes ESR PT INR Sodium Potassium Chloride Carbon Dioxide Anion Gap BUN Creatinine Est GFR ( Amer) Est GFR (Non-Af Amer) Random Glucose Lactic Acid 2.5 H Calcium Total Bilirubin AST ALT Alkaline Phosphatase C-React Prot High Sens Total Protein Albumin Globulin Albumin/Globulin Ratio Stool Occult Blood Positive H C. difficile Ag & Toxin Negative 01/17/17 01/17/17 01/17/17 06:30 06:30 06:30 WBC 19.2 H RBC 4.56 Hgb 14.4 Hct 44.4 MCV 97.3 H MCH 31.6 H MCHC 32.5 L RDW 17.3 H Plt Count 60 L MPV Neut % (Auto) Lymph % (Auto) [place] % (Auto) Eos % (Auto) Baso % (Auto) Neut # Lymph # [place] # Eos # Baso # Neutrophils % (Manual) Band Neutrophils % Lymphocytes % (Manual) Monocytes % (Manual) Toxic Granulation Platelet Estimate Large Platelets Anisocytosis (manual) Tear Drop Cells Ovalocytes ESR PT 15.9 H INR 1.4 H Sodium 132 Potassium 4.6 Chloride 94 L Carbon Dioxide 22 Anion Gap 21 H BUN 82 H Creatinine 5.4 H Est GFR ( Amer) 13 Est GFR (Non-Af Amer) 11 Random Glucose 72 L Lactic Acid Calcium 8.1 L Total Bilirubin 2.3 H AST 84 H ALT 75 H Alkaline Phosphatase 96 C-React Prot High Sens Total Protein 6.6 Albumin 3.3 L Globulin 3.2 Albumin/Globulin Ratio 1.0 Stool Occult Blood C. difficile Ag & Toxin Assessment/Plan - Assessment and Plan (Free Text) Assessment: A/P Sepsis, ?infected LE ulcers, CHF, A Fib, ELYSIA, hyponatremia, h/o PE/DVT, thrombocytopenia, morbid obesity, ?BELINDA - Continue meds - Renal follow up - cardiology follow up - Pulmonary toilets - Follow up labs
[2017-01-17] MEDS: Moxifloxacin IV 400mg/250ml NS 400 MG/250 ML BAG IVPB SCH (08:26)
[2017-01-17] MEDS: Hydrocortisone 1% Oint TOP SCH (08:27)
[2017-01-17] MEDS: Santyl Collagenase OINTMENT TOP SCH (08:27)
[2017-01-17] MEDS: Linezolid 600 mg in D5W 300 ml 600 MG/300 ML BAG IVPB SCH (08:28)
[2017-01-17] MEDS: Tiotropium 18 mcg Cap For Inhalation INH SCH (08:28)
[2017-01-17] MEDS ORDERED: Sodium Bicarbonate 7.5% (0.9 MEQ/ML) 50ML INJ IV ONE (09:00)
--- NOTE | 2017-01-17 11:30 | CP.PCM.CON ---
History of Present Illness - History of Present Illness History of Present Illness: Pt is alert. No SOB Past Patient History - Infectious Disease Hx of Infectious Diseases: None - Past Medical History & Family History Past Medical History?: Yes - Past Social History Smoking Status: Heavy Smoker > 10 Cigarettes Daily - CARDIAC Hx Atrial Fibrillation: Yes Hx Congestive Heart Failure: Yes Hx Hypercholesterolemia: No Hx Hypertension: No - PULMONARY Hx Asthma: Yes Hx Chronic Obstructive Pulmonary Disease (COPD): Yes Hx Pulmonary Embolism: Yes Hx Sleep Apnea: Yes - NEUROLOGICAL HX Cerebrovascular Accident: No - HEENT Hx HEENT Problems: No - RENAL Hx Chronic Kidney Disease: No - ENDOCRINE/METABOLIC Hx Hypothyroidism: No - HEMATOLOGICAL/ONCOLOGICAL Hx Human Immunodeficiency Virus (HIV): No - INTEGUMENTARY Hx Dermatological Problems: No - MUSCULOSKELETAL/RHEUMATOLOGICAL Hx Falls: Yes Hx Unsteady Gait: Yes - GASTROINTESTINAL Hx Gastrointestinal Disorders: Yes (hernia) Other/Comment: Hernia - GENITOURINARY/GYNECOLOGICAL Hx Genitourinary Disorders: No - PSYCHIATRIC Hx Substance Use: Yes (use marijuana) - SURGICAL HISTORY Hx Coronary Artery Bypass Graft: Yes Hx Coronary Stent: Yes - ANESTHESIA Hx Anesthesia: Yes Hx Anesthesia Reactions: No Hx Malignant Hyperthermia: No Meds Allergies/Adverse Reactions: Allergies Allergy/AdvReac Type Severity Reaction Status Date / Time Penicillins Allergy URTICARIA Verified 01/26/16 08:18 - Medications Medications: Current Medications Acetaminophen (Tylenol 325mg Tab) 650 mg PO Q6 PRN PRN Reason: Pain, Mild (1-3) Last Admin: 01/15/17 09:07 Dose: 650 mg Acetaminophen (Tylenol 325mg Tab) 650 mg PO Q6 PRN PRN Reason: Fever >100.4 F Albuterol (Ventolin Hfa 90 Mcg/Actuation (8 G)) 2 puff INH RQ6 PRN PRN Reason: Shortness of Breath Last Admin: 01/14/17 12:32 Dose: 2 puff Albuterol Sulfate (Albuterol 0.083% Inhal Valeria (2.5 Mg/3 Ml) Ud) 2.5 mg INH RQ4 PRN PRN Reason: Shortness of Breath Clopidogrel Bisulfate (Plavix) 75 mg PO DAILY [facility] Last Admin: 01/17/17 08:27 Dose: 75 mg Collagenase (Santyl) 1 applic TOP DAILY [facility] Last Admin: 01/17/17 08:27 Dose: 1 applic Hydrocortisone (Cortizone 1% Oint) 1 applic TOP BID [facility] Last Admin: 01/17/17 08:27 Dose: 1 appl Moxifloxacin HCl (Avelox Iv 400mg/250ml Ns) 400 mg in 250 mls @ 250 mls/hr IVPB DAILY [facility] Last Admin: 01/17/17 08:26 Dose: 250 mls/hr Linezolid (Zyvox 600mg/300ml D5w) 600 mg in 300 mls @ 300 mls/hr IVPB Q12 [facility] Last Admin: 01/17/17 08:28 Dose: 300 mls/hr Lactic Acid (Lac-Hydrin 12% Lotion (225 G)) 1 applic TOP TID [facility] Last Admin: 01/17/17 08:27 Dose: 1 applic Nitroglycerin (Nitrostat Sl Tab) 0.4 mg SL Q5M PRN PRN Reason: chest pain Ondansetron HCl (Zofran Inj) 4 mg IVP Q4 PRN PRN Reason: Nausea/Vomiting Last Admin: 01/17/17 03:49 Dose: 4 mg Pantoprazole Sodium (Protonix Inj) 40 mg IVP DAILY [facility] Tiotropium [place] (Spiriva) 18 mcg INH DAILY [facility] Last Admin: 01/17/17 08:28 Dose: 18 mcg Physical Exam - Eye Exam Additional comments: sclerae muddy - ENT Exam ENT Exam: Mucous Membranes Moist - Neck Exam Additional comments: JVD + @ 30 degrees - Respiratory Exam Additional comments: Lungs are clear Poor inspiratoey effort - Cardiovascular Exam Cardiovascular Exam: REGULAR RHYTHM Additional comments: 104/min - GI/Abdominal Exam Additional comments: obese ,nontender - Extremities Exam Extremities exam: Positive for: pedal edema Additional comments: lower legs wrapped Results - Vital Signs Recent Vital Signs: Last Vital Signs Temp 97.7 F 01/17/17 08:00 Pulse 103 H 01/17/17 10:00 Resp 18 01/17/17 10:00 BP 123/63 01/17/17 10:00 Pulse Ox 100 01/17/17 10:00 - Labs Result Diagrams: 01/17/17 06:30 01/17/17 06:30 Labs: Laboratory Results - last 24 hr 01/16/17 01/16/17 01/16/17 08:00 08:00 18:00 WBC RBC Hgb Hct MCV MCH MCHC RDW Plt Count Neutrophils % (Manual) 92 H Band Neutrophils % 4 H Lymphocytes % (Manual) 2 L Monocytes % (Manual) 2 Toxic Granulation Present Platelet Estimate Decreased L Large Platelets Present Anisocytosis (manual) Slight Tear Drop Cells Slight Ovalocytes Slight ESR 33 H PT INR Sodium Potassium Chloride Carbon Dioxide Anion Gap BUN Creatinine Est GFR ( Amer) Est GFR (Non-Af Amer) Random Glucose Calcium Total Bilirubin AST ALT Alkaline Phosphatase C-React Prot High Sens > 15.00 H Total Protein Albumin Globulin Albumin/Globulin Ratio Stool Occult Blood C. difficile Ag & Toxin Negative 01/16/17 01/17/17 01/17/17 18:30 06:30 06:30 WBC 19.2 H RBC 4.56 Hgb 14.4 Hct 44.4 MCV 97.3 H MCH 31.6 H MCHC 32.5 L RDW 17.3 H Plt Count 60 L Neutrophils % (Manual) Band Neutrophils % Lymphocytes % (Manual) Monocytes % (Manual) Toxic Granulation Platelet Estimate Large Platelets Anisocytosis (manual) Tear Drop Cells Ovalocytes ESR PT 15.9 H INR 1.4 H Sodium Potassium Chloride Carbon Dioxide Anion Gap BUN Creatinine Est GFR ( Amer) Est GFR (Non-Af Amer) Random Glucose Calcium Total Bilirubin AST ALT Alkaline Phosphatase C-React Prot High Sens Total Protein Albumin Globulin Albumin/Globulin Ratio Stool Occult Blood Positive H C. difficile Ag & Toxin 01/17/17 06:30 WBC RBC Hgb Hct MCV MCH MCHC RDW Plt Count Neutrophils % (Manual) Band Neutrophils % Lymphocytes % (Manual) Monocytes % (Manual) Toxic Granulation Platelet Estimate Large Platelets Anisocytosis (manual) Tear Drop Cells Ovalocytes ESR PT INR Sodium 132 Potassium 4.6 Chloride 94 L Carbon Dioxide 22 Anion Gap 21 H BUN 82 H Creatinine 5.4 H Est GFR ( Amer) 13 Est GFR (Non-Af Amer) 11 Random Glucose 72 L Calcium 8.1 L Total Bilirubin 2.3 H AST 84 H ALT 75 H Alkaline Phosphatase 96 C-React Prot High Sens Total Protein 6.6 Albumin 3.3 L Globulin 3.2 Albumin/Globulin Ratio 1.0 Stool Occult Blood C. difficile Ag & Toxin Assessment & Plan - Assessment and Plan (Free Text) Assessment: Acute anuric renal failure Pt was given first dialysis yesterday. However the treatment could not be completed because he was restless CHF Sepsis elevated liver enzymes Plan: Sceduled for dialysis today. Pt was explained thw need to be calm & still during dialysis. He agrees to take xanax prior to dialysis BP is stable
[2017-01-17 12:02] VITALS: BP 134/59; PULSE 107; RESP 22; TEMP 97.8; O2SAT 97
--- NOTE | 2017-01-17 12:14 | CP.PCM.PN ---
Subjective - Date & Time of Evaluation Date of Evaluation: 01/17/17 Time of Evaluation: 12:28 - Subjective Subjective: 56 y/o male seen at bedside in ICU complaining of severe pain in his feet b/l. Pt is awake and responds to verbal stimuli. Pt denies of any acute overnight events. Pt agrees by nodding stating that he still has pain in his legs both the side. Pt states that his dressing was changed by a nurse today. Pt denies of any recent F/N/V/C/SOB. Pt's dressing is clean, dry and intact. Pt denies of any new pedal complains. Objective - Vital Signs/Intake and Output Vital Signs (last 24 hours): Temp Pulse Resp BP Pulse Ox 97.8 F 107 H 22 134/59 L 97 01/17/17 11:59 01/17/17 11:59 01/17/17 11:59 01/17/17 11:59 01/17/17 11:59 Intake and Output: 01/17/17 01/17/17 06:59 18:59 Intake Total 840 1050 Output Total 360 30 Balance 480 1020 - Medications Medications: Current Medications Acetaminophen (Tylenol 325mg Tab) 650 mg PO Q6 PRN PRN Reason: Pain, Mild (1-3) Last Admin: 01/15/17 09:07 Dose: 650 mg Acetaminophen (Tylenol 325mg Tab) 650 mg PO Q6 PRN PRN Reason: Fever >100.4 F Albuterol (Ventolin Hfa 90 Mcg/Actuation (8 G)) 2 puff INH RQ6 PRN PRN Reason: Shortness of Breath Last Admin: 01/14/17 12:32 Dose: 2 puff Albuterol Sulfate (Albuterol 0.083% Inhal Valeria (2.5 Mg/3 Ml) Ud) 2.5 mg INH RQ4 PRN PRN Reason: Shortness of Breath Clopidogrel Bisulfate (Plavix) 75 mg PO DAILY [facility] Last Admin: 01/17/17 08:27 Dose: 75 mg Collagenase (Santyl) 1 applic TOP DAILY [facility] Last Admin: 01/17/17 08:27 Dose: 1 applic Hydrocortisone (Cortizone 1% Oint) 1 applic TOP BID [facility] Last Admin: 01/17/17 08:27 Dose: 1 appl Moxifloxacin HCl (Avelox Iv 400mg/250ml Ns) 400 mg in 250 mls @ 250 mls/hr IVPB DAILY [facility] Last Admin: 01/17/17 08:26 Dose: 250 mls/hr Linezolid (Zyvox 600mg/300ml D5w) 600 mg in 300 mls @ 300 mls/hr IVPB Q12 [facility] Last Admin: 01/17/17 08:28 Dose: 300 mls/hr Lactic Acid (Lac-Hydrin 12% Lotion (225 G)) 1 applic TOP TID [facility] Last Admin: 01/17/17 08:27 Dose: 1 applic Nitroglycerin (Nitrostat Sl Tab) 0.4 mg SL Q5M PRN PRN Reason: chest pain Ondansetron HCl (Zofran Inj) 4 mg IVP Q4 PRN PRN Reason: Nausea/Vomiting Last Admin: 01/17/17 03:49 Dose: 4 mg Pantoprazole Sodium (Protonix Inj) 40 mg IVP DAILY [facility] Tiotropium [place] (Spiriva) 18 mcg INH DAILY [facility] Last Admin: 01/17/17 08:28 Dose: 18 mcg - Labs Labs: 01/17/17 06:30 01/17/17 06:30 PT 15.9 Seconds (9.8-13.1) H 01/17/17 06:30 INR 1.4 (0.9-1.2) H 01/17/17 06:30 APTT 36.5 Seconds (25.6-37.1) 01/15/17 17:15 - Constitutional Appears: Well, Non-toxic, No Acute Distress - Extremities Exam Additional comments: Pt's dressing is clean, dry and intact. No strike through is noted from the dressing. All of wound site is covered with a dressing. - Neurological Exam Neurological Exam: Awake - Psychiatric Exam Psychiatric exam: Normal Affect, Normal Mood Assessment and Plan - Assessment and Plan (Free Text) Assessment: 56 y/o male seen at bedside in ICU for pain in his legs and feet secondary to diffuse wounds and PVD Plan: Pt evaluated and chart reviewed Pt discussed in details with attending Dr. Parr Labs and vitals reviewed (afebrile, WBC @ 19.2) IV abx as per ID - pt placed on zyvox and moxifloxacin, Cardiovascular on board Dressing change performed by a nurse Nursing order in place to change dressing daily using santyl, adaptic, DSD, morganx Podiatry to follow while patient is in house
--- NOTE | 2017-01-17 12:36 | RAD ---
PROCEDURE: CHEST RADIOGRAPH, 1 VIEW HISTORY: catheter placement COMPARISON: Comparison made with chest radiograph dated 01/15/2017 FINDINGS: LUNGS: No acute infiltrates PLEURA: No pneumothorax or pleural fluid seen. CARDIOVASCULAR: Marked cardiomegaly ectatic uncoiled aorta. OSSEOUS STRUCTURES: No significant abnormalities. VISUALIZED UPPER ABDOMEN: Normal. OTHER FINDINGS: None. IMPRESSION: Marked cardiomegaly. No acute infiltrates
--- NOTE | 2017-01-17 12:38 | RAD ---
PROCEDURE: CHEST RADIOGRAPH, 1 VIEW HISTORY: SOB COMPARISON: Comparison chest 01/14/2017 FINDINGS: LUNGS: Clear. PLEURA: No pneumothorax or pleural fluid seen. CARDIOVASCULAR: Marked cardiomegaly. . OSSEOUS STRUCTURES: No significant abnormalities. VISUALIZED UPPER ABDOMEN: Normal. OTHER FINDINGS: None. IMPRESSION: No active disease.
--- NOTE | 2017-01-17 13:12 | CP.PCM.PN ---
Subjective - Date & Time of Evaluation Date of Evaluation: 01/17/17 Time of Evaluation: 12:45 - Subjective Subjective: Code Blue Paged overhead. Upon arrival Patient mask ventilated and chest compressions by ICU team. Intubated with MAC 3 blade and 7.5 ETT, one attempt, grade 1 view, atraumatic. Etc02 confirmed with EZcap device and bilateral breath sounds heard. ETT secured at 23cms at the lip. Code continued by ICU team. No drugs administered or ordered for intubation. Objective - Vital Signs/Intake and Output Vital Signs (last 24 hours): Temp Pulse Resp BP Pulse Ox 97.8 F 107 H 22 134/59 L 97 01/17/17 11:59 01/17/17 11:59 01/17/17 11:59 01/17/17 11:59 01/17/17 11:59 Intake and Output: 01/17/17 01/17/17 06:59 18:59 Intake Total 840 1050 Output Total 360 30 Balance 480 1020 - Medications Medications: Current Medications Acetaminophen (Tylenol 325mg Tab) 650 mg PO Q6 PRN PRN Reason: Pain, Mild (1-3) Last Admin: 01/15/17 09:07 Dose: 650 mg Acetaminophen (Tylenol 325mg Tab) 650 mg PO Q6 PRN PRN Reason: Fever >100.4 F Albuterol (Ventolin Hfa 90 Mcg/Actuation (8 G)) 2 puff INH RQ6 PRN PRN Reason: Shortness of Breath Last Admin: 01/14/17 12:32 Dose: 2 puff Albuterol Sulfate (Albuterol 0.083% Inhal Valeria (2.5 Mg/3 Ml) Ud) 2.5 mg INH RQ4 PRN PRN Reason: Shortness of Breath Clopidogrel Bisulfate (Plavix) 75 mg PO DAILY [facility] Last Admin: 01/17/17 08:27 Dose: 75 mg Collagenase (Santyl) 1 applic TOP DAILY [facility] Last Admin: 01/17/17 08:27 Dose: 1 applic Hydrocortisone (Cortizone 1% Oint) 1 applic TOP BID [facility] Last Admin: 01/17/17 08:27 Dose: 1 appl Moxifloxacin HCl (Avelox Iv 400mg/250ml Ns) 400 mg in 250 mls @ 250 mls/hr IVPB DAILY [facility] Last Admin: 01/17/17 08:26 Dose: 250 mls/hr Linezolid (Zyvox 600mg/300ml D5w) 600 mg in 300 mls @ 300 mls/hr IVPB Q12 [facility] Last Admin: 01/17/17 08:28 Dose: 300 mls/hr Lactic Acid (Lac-Hydrin 12% Lotion (225 G)) 1 applic TOP TID [facility] Last Admin: 01/17/17 08:27 Dose: 1 applic Nitroglycerin (Nitrostat Sl Tab) 0.4 mg SL Q5M PRN PRN Reason: chest pain Ondansetron HCl (Zofran Inj) 4 mg IVP Q4 PRN PRN Reason: Nausea/Vomiting Last Admin: 01/17/17 03:49 Dose: 4 mg Pantoprazole Sodium (Protonix Inj) 40 mg IVP DAILY [facility] Tiotropium [place] (Spiriva) 18 mcg INH DAILY [facility] Last Admin: 01/17/17 08:28 Dose: 18 mcg - Labs Labs: 01/17/17 06:30 01/17/17 06:30 PT 15.9 Seconds (9.8-13.1) H 01/17/17 06:30 INR 1.4 (0.9-1.2) H 01/17/17 06:30 APTT 36.5 Seconds (25.6-37.1) 01/15/17 17:15
--- NOTE | 2017-01-17 13:42 | CP.CCUPN ---
CCU Subjective - Physician Review Events Since Last Encounter (Free Text): 01/17/17 13:37 Patient suddenly became unresponsive, patient intubated with bradycardia and PEA then asystoly 14 mintes after starting dialysis, CPR and ACLS done as protocol, patient was intubated, patient did not respond, patient pronounced at 1.31 PM 01/17/2017 CCU Objective - Vital Signs / Intake & Output Vital Signs (Last 4 hours): Vital Signs Temp Pulse Resp BP Pulse Ox 01/17/17 11:59 97.8 F 107 H 22 134/59 L 97 01/17/17 10:00 103 H 18 123/63 100 Intake and Output (Last 8hrs): Intake & Output 01/16/17 01/17/17 01/17/17 22:59 06:59 14:59 Intake Total 3646 202 6446 Output Total 25 360 30 Balance 3418 526 2225 Intake: IV 1200 300 Intake, Piggyback 300 550 Oral 240 500 Output: Urine 25 60 30 Urethral (Monk) 60 30 Urine, Voided 25 Ultrafiltrate 300 Other: # Bowel Movements 1 2 - Medications Active Medications: Active Medications Generic Name Dose Route Start Last Admin Trade Name Freq PRN Reason Stop Dose Admin Acetaminophen 650 mg 01/14/17 04:01 01/15/17 09:07 Tylenol 325mg Tab PO 650 mg Q6 PRN Administration Pain, Mild (1-3) Acetaminophen 650 mg 01/14/17 04:01 Tylenol 325mg Tab PO Q6 PRN Fever >100.4 F Albuterol 2 puff 01/14/17 04:55 01/14/17 12:32 Ventolin Hfa 90 Mcg/Actuation (8 G) INH 2 puff RQ6 PRN Administration Shortness of Breath Albuterol Sulfate 2.5 mg 01/15/17 05:09 Albuterol 0.083% Inhal Valeria (2.5 Mg/3 Ml) Ud INH RQ4 PRN Shortness of Breath Clopidogrel Bisulfate 75 mg 01/14/17 09:00 01/17/17 08:27 Plavix PO 75 mg DAILY [facility] Administration Collagenase 1 applic 01/15/17 14:45 01/17/17 08:27 Santyl TOP 1 applic DAILY [facility] Administration Hydrocortisone 1 applic 01/14/17 09:00 01/17/17 08:27 Cortizone 1% Oint TOP 1 appl BID [facility] Administration Moxifloxacin HCl 400 mg in 250 mls @ 250 mls/hr 01/16/17 09:00 01/17/17 08:26 Avelox Iv 400mg/250ml Ns IVPB 250 mls/hr DAILY [facility] Administration Linezolid 600 mg in 300 mls @ 300 mls/hr 01/15/17 21:00 01/17/17 08:28 Zyvox 600mg/300ml D5w IVPB 300 mls/hr Q12 [facility] Administration Lactic Acid 1 applic 01/15/17 17:00 01/17/17 08:27 Lac-Hydrin 12% Lotion (225 G) TOP 1 applic TID [facility] Administration Nitroglycerin 0.4 mg 01/14/17 04:01 Nitrostat Sl Tab SL Q5M PRN chest pain Ondansetron HCl 4 mg 01/14/17 21:10 01/17/17 03:49 Zofran Inj IVP 4 mg Q4 PRN Administration Nausea/Vomiting Pantoprazole Sodium 40 mg 01/17/17 09:00 Protonix Inj IVP DAILY [facility] Tiotropium [place] 18 mcg 01/14/17 09:00 01/17/17 08:28 Spiriva INH 18 mcg DAILY [facility] Administration - Patient Studies Lab Studies: Microbiology Studies 01/15/17 11:40 MRSA Culture (Admit) - Final Naris MRSA NOT DETECTED 01/15/17 00:40 Blood Culture - Preliminary Blood-Venous NO GROWTH AFTER 48 HOURS Lab Studies 01/17/17 01/17/17 01/17/17 Range/Units 06:30 06:30 06:30 WBC 19.2 H (4.8-10.8) K/uL RBC 4.56 (4.40-5.90) Mil/uL Hgb 14.4 (12.0-18.0) g/dL Hct 44.4 (35.0-51.0) % MCV 97.3 H (80.0-94.0) fl MCH 31.6 H (27.0-31.0) pg MCHC 32.5 L (33.0-37.0) g/dL RDW 17.3 H (11.5-14.5) % Plt Count 60 L (130-400) K/uL ESR (0-20) mm/hr PT 15.9 H (9.8-13.1) Seconds INR 1.4 H (0.9-1.2) Sodium 132 (132-148) mmol/l Potassium 4.6 (3.6-5.0) MMOL/L Chloride 94 L (98-107) mmol/L Carbon Dioxide 22 (22-30) mmol/L Anion Gap 21 H (10-20) BUN 82 H (9-20) mg/dl Creatinine 5.4 H (0.8-1.5) mg/dL Est GFR ( Amer) 13 Est GFR (Non-Af Amer) 11 Random Glucose 72 L (75-110) mg/dL Calcium 8.1 L (8.4-10.2) mg/dL Total Bilirubin 2.3 H (0.2-1.3) mg/dl AST 84 H (17-59) U/L ALT 75 H (21-72) U/L Alkaline Phosphatase 96 (38-126) U/L C-React Prot High Sens (1.00-3.00) mg/L Total Protein 6.6 (6.3-8.2) G/DL Albumin 3.3 L (3.5-5.0) g/dL Globulin 3.2 (2.2-3.9) gm/dL Albumin/Globulin Ratio 1.0 (1.0-2.1) Stool Occult Blood (NEGATIVE) C. difficile Ag & Toxin (NEGATIVE) 01/16/17 01/16/17 01/16/17 Range/Units 18:30 18:00 08:00 WBC (4.8-10.8) K/uL RBC (4.40-5.90) Mil/uL Hgb (12.0-18.0) g/dL Hct (35.0-51.0) % MCV (80.0-94.0) fl MCH (27.0-31.0) pg MCHC (33.0-37.0) g/dL RDW (11.5-14.5) % Plt Count (130-400) K/uL ESR (0-20) mm/hr PT (9.8-13.1) Seconds INR (0.9-1.2) Sodium (132-148) mmol/l Potassium (3.6-5.0) MMOL/L Chloride (98-107) mmol/L Carbon Dioxide (22-30) mmol/L Anion Gap (10-20) BUN (9-20) mg/dl Creatinine (0.8-1.5) mg/dL Est GFR ( Amer) Est GFR (Non-Af Amer) Random Glucose (75-110) mg/dL Calcium (8.4-10.2) mg/dL Total Bilirubin (0.2-1.3) mg/dl AST (17-59) U/L ALT (21-72) U/L Alkaline Phosphatase (38-126) U/L C-React Prot High Sens > 15.00 H (1.00-3.00) mg/L Total Protein (6.3-8.2) G/DL Albumin (3.5-5.0) g/dL Globulin (2.2-3.9) gm/dL Albumin/Globulin Ratio (1.0-2.1) Stool Occult Blood Positive H (NEGATIVE) C. difficile Ag & Toxin Negative (NEGATIVE) 01/16/17 Range/Units 08:00 WBC (4.8-10.8) K/uL RBC (4.40-5.90) Mil/uL Hgb (12.0-18.0) g/dL Hct (35.0-51.0) % MCV (80.0-94.0) fl MCH (27.0-31.0) pg MCHC (33.0-37.0) g/dL RDW (11.5-14.5) % Plt Count (130-400) K/uL ESR 33 H (0-20) mm/hr PT (9.8-13.1) Seconds INR (0.9-1.2) Sodium (132-148) mmol/l Potassium (3.6-5.0) MMOL/L Chloride (98-107) mmol/L Carbon Dioxide (22-30) mmol/L Anion Gap (10-20) BUN (9-20) mg/dl Creatinine (0.8-1.5) mg/dL Est GFR ( Amer) Est GFR (Non-Af Amer) Random Glucose (75-110) mg/dL Calcium (8.4-10.2) mg/dL Total Bilirubin (0.2-1.3) mg/dl AST (17-59) U/L ALT (21-72) U/L Alkaline Phosphatase (38-126) U/L C-React Prot High Sens (1.00-3.00) mg/L Total Protein (6.3-8.2) G/DL Albumin (3.5-5.0) g/dL Globulin (2.2-3.9) gm/dL Albumin/Globulin Ratio (1.0-2.1) Stool Occult Blood (NEGATIVE) C. difficile Ag & Toxin (NEGATIVE) Laboratory Results - last 24 hr 01/16/17 01/16/17 01/16/17 08:00 08:00 18:00 WBC RBC Hgb Hct MCV MCH MCHC RDW Plt Count ESR 33 H PT INR Sodium Potassium Chloride Carbon Dioxide Anion Gap BUN Creatinine Est GFR ( Amer) Est GFR (Non-Af Amer) Random Glucose Calcium Total Bilirubin AST ALT Alkaline Phosphatase C-React Prot High Sens > 15.00 H Total Protein Albumin Globulin Albumin/Globulin Ratio Stool Occult Blood C. difficile Ag & Toxin Negative 01/16/17 01/17/17 01/17/17 18:30 06:30 06:30 WBC 19.2 H RBC 4.56 Hgb 14.4 Hct 44.4 MCV 97.3 H MCH 31.6 H MCHC 32.5 L RDW 17.3 H Plt Count 60 L ESR PT 15.9 H INR 1.4 H Sodium Potassium Chloride Carbon Dioxide Anion Gap BUN Creatinine Est GFR ( Amer) Est GFR (Non-Af Amer) Random Glucose Calcium Total Bilirubin AST ALT Alkaline Phosphatase C-React Prot High Sens Total Protein Albumin Globulin Albumin/Globulin Ratio Stool Occult Blood Positive H C. difficile Ag & Toxin 01/17/17 06:30 WBC RBC Hgb Hct MCV MCH MCHC RDW Plt Count ESR PT INR Sodium 132 Potassium 4.6 Chloride 94 L Carbon Dioxide 22 Anion Gap 21 H BUN 82 H Creatinine 5.4 H Est GFR ( Amer) 13 Est GFR (Non-Af Amer) 11 Random Glucose 72 L Calcium 8.1 L Total Bilirubin 2.3 H AST 84 H ALT 75 H Alkaline Phosphatase 96 C-React Prot High Sens Total Protein 6.6 Albumin 3.3 L Globulin 3.2 Albumin/Globulin Ratio 1.0 Stool Occult Blood C. difficile Ag & Toxin EKG/Cardiology Studies: Cardiology / EKG Studies 01/17/17 EKG [ELECTROCARDIOGRAM] Stat Comment: Mode Of Transportation: Reason For Exam: s/p code
--- NOTE | 2017-01-17 14:48 | CP.PCM.DIS ---
Provider - Provider Date of Admission: 01/14/17 18:29 Attending physician: Gonzales Torrez MD Primary care physician: Dr. Mirza Consults: ICU consult Cardiology consult nephrology consult Surgery , interventional radiology, vascular surgery infectious disease hematology Podiatry Time Spent in preparation of Discharge (in minutes): 30 Hospital Course - Lab Results Lab Results: Micro Results 01/15/17 11:40 Naris MRSA Culture (Admit) - Final MRSA NOT DETECTED 01/15/17 00:40 Blood-Venous Blood Culture - Preliminary NO GROWTH AFTER 48 HOURS Most Recent Lab Values WBC 19.2 K/uL (4.8-10.8) H 01/17/17 06:30 RBC 4.56 Mil/uL (4.40-5.90) 01/17/17 06:30 Hgb 14.4 g/dL (12.0-18.0) 01/17/17 06:30 Hct 44.4 % (35.0-51.0) 01/17/17 06:30 MCV 97.3 fl (80.0-94.0) H 01/17/17 06:30 MCH 31.6 pg (27.0-31.0) H 01/17/17 06:30 MCHC 32.5 g/dL (33.0-37.0) L 01/17/17 06:30 RDW 17.3 % (11.5-14.5) H 01/17/17 06:30 Plt Count 60 K/uL (130-400) L 01/17/17 06:30 MPV 10.6 fl (7.2-11.7) 01/16/17 08:00 Neut % (Auto) 91.3 % (50.0-75.0) H 01/16/17 08:00 Lymph % (Auto) 3.3 % (20.0-40.0) L 01/16/17 08:00 Prentiss % (Auto) 4.3 % (0.0-10.0) 01/16/17 08:00 Eos % (Auto) 1.0 % (0.0-4.0) 01/16/17 08:00 Baso % (Auto) 0.1 % (0.0-2.0) 01/16/17 08:00 Neut # 16.0 K/uL (1.8-7.0) H 01/16/17 08:00 Lymph # 0.6 K/uL (1.0-4.3) L 01/16/17 08:00 Prentiss # 0.8 K/uL (0.0-0.8) 01/16/17 08:00 Eos # 0.2 K/uL (0.0-0.7) 01/16/17 08:00 Baso # 0.0 K/uL (0.0-0.2) 01/16/17 08:00 Neutrophils % (Manual) 92 % (42-75) H 01/16/17 08:00 Band Neutrophils % 4 % (0-2) H 01/16/17 08:00 Lymphocytes % (Manual) 2 % (20-50) L 01/16/17 08:00 Monocytes % (Manual) 2 % (0-10) 01/16/17 08:00 Toxic Granulation Present 01/16/17 08:00 Platelet Estimate Decreased (NORMAL) L 01/16/17 08:00 Large Platelets Present 01/16/17 08:00 Anisocytosis (manual) Slight 01/16/17 08:00 Tear Drop Cells Slight 01/16/17 08:00 Ovalocytes Slight 01/16/17 08:00 Acanthocytes (Spur) Slight 01/14/17 01:55 ESR 33 mm/hr (0-20) H 01/16/17 08:00 PT 15.9 Seconds (9.8-13.1) H 01/17/17 06:30 INR 1.4 (0.9-1.2) H 01/17/17 06:30 APTT 36.5 Seconds (25.6-37.1) 01/15/17 17:15 D-Dimer, Quantitative 755 ng/mlDDU (0-230) H 01/15/17 17:15 Sodium 132 mmol/l (132-148) 01/17/17 06:30 Potassium 4.6 MMOL/L (3.6-5.0) 01/17/17 06:30 Chloride 94 mmol/L (98-107) L 01/17/17 06:30 Carbon Dioxide 22 mmol/L (22-30) 01/17/17 06:30 Anion Gap 21 (10-20) H 01/17/17 06:30 BUN 82 mg/dl (9-20) H 01/17/17 06:30 Creatinine 5.4 mg/dL (0.8-1.5) H 01/17/17 06:30 Est GFR ( Amer) 13 01/17/17 06:30 Est GFR (Non-Af Amer) 11 01/17/17 06:30 Random Glucose 72 mg/dL (75-110) L 01/17/17 06:30 Hemoglobin A1c 6.8 % (4.2-6.5) H 01/15/17 06:35 Serum Osmolality 380 mosm/kg (272-300) H 01/15/17 17:15 Lactic Acid 2.5 MMOL/L (0.7-2.1) H 01/16/17 08:00 Calcium 8.1 mg/dL (8.4-10.2) L 01/17/17 06:30 Phosphorus 4.6 mg/dl (2.5-4.5) H 01/14/17 06:00 Total Bilirubin 2.3 mg/dl (0.2-1.3) H 01/17/17 06:30 AST 84 U/L (17-59) H 01/17/17 06:30 ALT 75 U/L (21-72) H 01/17/17 06:30 Alkaline Phosphatase 96 U/L (38-126) 01/17/17 06:30 Troponin I 0.0700 ng/mL (0.00-0.120) 01/14/17 18:55 C-React Prot High Sens > 15.00 mg/L (1.00-3.00) H 01/16/17 08:00 NT-Pro-B Natriuret Pep 17498 pg/ml (0-900) H 01/14/17 02:30 Total Protein 6.6 G/DL (6.3-8.2) 01/17/17 06:30 Albumin 3.3 g/dL (3.5-5.0) L 01/17/17 06:30 Globulin 3.2 gm/dL (2.2-3.9) 01/17/17 06:30 Albumin/Globulin Ratio 1.0 (1.0-2.1) 01/17/17 06:30 Lipase 61 U/L (23-300) 01/14/17 02:30 TSH 3rd Generation 2.57 mIU/ML (0.46-4.68) 01/14/17 09:55 PTH Intact Whole Molec 120 pg/mL (14-64) H 01/14/17 06:00 Urine Color Holly (YELLOW) 01/14/17 11:00 Urine Clarity Slighty-cloudy (Clear) 01/14/17 11:00 Urine pH 5.0 (5.0-8.0) 01/14/17 11:00 Ur Specific [place] 1.014 (1.003-1.030) 01/14/17 11:00 Urine Protein 30 mg/dL (NEGATIVE) 01/14/17 11:00 Urine Glucose (UA) Neg mg/dL (Normal) 01/14/17 11:00 Urine Ketones Negative mg/dL (NEGATIVE) 01/14/17 11:00 Urine Blood Negative (NEGATIVE) 01/14/17 11:00 Urine Nitrate Negative (NEGATIVE) 01/14/17 11:00 Urine Bilirubin Negative (NEGATIVE) 01/14/17 11:00 Urine Urobilinogen 4.0 mg/dL (0.2-1.0) 01/14/17 11:00 Ur Leukocyte Esterase Neg Katty/uL (Negative) 01/14/17 11:00 Urine RBC (Auto) 8 /hpf (0-3) H 01/14/17 11:00 Urine Microscopic WBC 5 /hpf (0-5) 01/14/17 11:00 Ur Squamous Epith Cells 1 /hpf (0-5) 01/14/17 11:00 Urine Bacteria Rare (<OCC) 01/14/17 11:00 Hyaline Casts 3-5 /hpf (0-2) H 01/14/17 11:00 Urine Osmolality 306 mosm/kg (300-1000) 01/15/17 19:00 Ur Random Creatinine 142.2 mg/dL 01/14/17 11:00 U Random Total Protein 52.0 mg/dL (0.0-12.0) H 01/14/17 11:00 Ur Random Sodium 46 meq/L 01/14/17 11:00 Ur Random Potassium 49.5 mmol/L 01/14/17 11:00 Stool Occult Blood Positive (NEGATIVE) H 01/16/17 18:30 Urine Opiates Screen Positive (NEGATIVE) H 01/14/17 11:00 Urine Methadone Screen Negative (NEGATIVE) 01/14/17 11:00 Ur Barbiturates Screen Negative (NEGATIVE) 01/14/17 11:00 Ur Phencyclidine Scrn Negative (NEGATIVE) 01/14/17 11:00 Ur Amphetamines Screen Negative (NEGATIVE) 01/14/17 11:00 U Benzodiazepines Scrn Negative (NEGATIVE) 01/14/17 11:00 U Oth Cocaine Metabols Negative (NEGATIVE) 01/14/17 11:00 U Cannabinoids Screen Positive (NEGATIVE) H 01/14/17 11:00 C. difficile Ag & Toxin Negative (NEGATIVE) 01/16/17 18:00 - Hospital Course Hospital Course: 56 y/o M with PMH of known CAD, PVD, systolic CHF (EF: 25-35% in 04/2015), A-Fib , COPD, DVT/PE,active smoker, morbidly obese , not compliant and gout presented to the hospital with worsening CP radiating to R arm with some numbness/tingling, worsening SOB, and dysuria. Stated he always has SOB, but developed this new CP. Also states he has had 'foul smelling urine and also c/ o diffuse itching, and c/o some swelling and ulceration in his legs. Patient complains of poor appetite for 1 month. Upon admission he was found to be hypotensive , tachycardic and with elevated WBC count .Patient transferred to ICU for sepsis with gram positive bacteremia. He also noticed to become oliguric with worsening renal function. multipl econsultants were called to assist with his care, cardiology< ID, critical care ,podiatry , nephrology and vascular surgeon.He was started on Iv antibiotics for bacteremia with Zyvox and Zithromax. Hemodyalysis catheter was placed hemodyalysis was started . Patient went into PEA, 20 minutes after HD was started. Code blue was activated and high quality CPR started .( see code sheets for details ).Patient was pronounced @ 1:31 PM. Family present and notified. certificate filled with [email or web address] online service : case # [id number] 1. Cardiac arrest / PEA 2. Sepsis probably sec Infected lower extremity Ulcers 3. Gram positive bacteremia 4. Acute anuric kidney Injury- started HD 5. CHF compensated, systolic EF=25-35% 6. A Fib rate controlled 7.Hx of PE /DVT 8.Thrombocytopenia, chronic 9.Coagulopathy 10.Morbid obesity 11.COPD 12. Sleep apnea 13.Metabolic acidosis and electrolyte abnormalities secondary to renal failure Discharge Exam - Head Exam Head Exam: ATRAUMATIC Discharge Plan - Follow Up Plan Condition: Disposition: HOME/ ROUTINE
[2017-01-18 08:34] LABS: HEPATITIS B SURFACE AG NEGATIVE (NEGATIVE)
[2017-01-18 08:39] LABS: HEPATITIS B CORE AB NEGATIVE (NEGATIVE)
[2017-01-18 08:50] LABS: HEPATITIS C ANTIBODY NEGATIVE (NEGATIVE)
--- NOTE | 2017-01-18 12:36 | US ---
PROCEDURE: Duplex ultrasound of the bilateral lower extremity arteries. HISTORY: hx of PVD COMPARISON: None available. TECHNIQUE: Grayscale and duplex Doppler evaluation of the bilateral common femoral, superficial femoral, popliteal, posterior tibial and dorsalis pedis arteries was performed.. FINDINGS: RIGHT LOWER EXTREMITY: RIGHT COMMON FEMORAL ARTERY: Indirect evidence of iliac and more proximal disease. Considerable atherosclerotic disease right common femoral artery with significant dampening of the monophasic waveform. Maximal flow velocity of 13 cm/s. RIGHT SUPERFICIAL FEMORAL ARTERY: Severe atherosclerotic disease incompletely visualized, of spectral broadening and monophasic waveform Maximal flow velocity of 75 cm/s. RIGHT POPLITEAL ARTERY:Nondiagnostic assessment RIGHT POSTERIOR TIBIAL ARTERY: Nondiagnostic assessment. RIGHT DORSALIS PEDIS ARTERY: Nondiagnostic assessment. LEFT LOWER EXTREMITY: LEFT COMMON FEMORAL ARTERY: Severe atherosclerotic disease throughout visualized left common femoral artery Maximal flow velocity of 27 Cm/s. LEFT SUPERFICIAL FEMORAL ARTERY: Severe atherosclerotic disease. Maximal flow velocity of 55 cm/s. LEFT POPLITEAL ARTERY:Atherosclerotic disease, severe Maximal flow velocity of 39.5 cm/s. LEFT POSTERIOR TIBIAL ARTERY: Nondiagnostic assessment LEFT DORSALIS PEDIS ARTERY: Nondiagnostic assessment OTHER FINDINGS: None. IMPRESSION: Limited study. Inflow disease and common femoral artery atherosclerotic disease bilaterally. Limited assessment beyond these levels based on edema and body habitus.
== END 2017-01-17 13:31 | DRG 872 ==
LOC: H.ER 01:03 → H.ERHOLD 02:43 → H.TEL 04:32 → OBSVTOIN 18:29 → H.ICU/CCU 01-15 19:44
PROVIDERS: ADMIT Internal Medicine; ATTEND Internal Medicine
PROC: 05HM33Z Insertion of Infusion Device into Right Internal Jugular Vein, Percutaneous Approach (ICD-10-PCS; 2017-01-16)
PROC: 0BH17EZ Insertion of Endotracheal Airway into Trachea, Via Natural or Artificial Opening (ICD-10-PCS; principal; 2017-01-17)
PROC: 5A1935Z Respiratory Ventilation, Less than 24 Consecutive Hours (ICD-10-PCS; 2017-01-17)
PROC: 5A12012 Performance of Cardiac Output, Single, Manual (ICD-10-PCS; 2017-01-17)
PROC: 5A1D00Z (ICD-10-PCS; 2017-01-17)
DX: A40.8 Other streptococcal sepsis (principal); E87.2 Acidosis; D68.9 Coagulation defect, unspecified; N17.9 Acute kidney failure, unspecified; D69.6 Thrombocytopenia, unspecified; E87.1 Hypo-osmolality and hyponatremia; I13.0 Hypertensive heart and chronic kidney disease with heart failure and stage 1 through stage 4 chronic kidney disease, or unspecified chronic kidney disease; I50.22 Chronic systolic (congestive) heart failure; N18.3 Chronic kidney disease, stage 3 (moderate); Z68.43 Body mass index [BMI] 50.0-59.9, adult; L97.419 Non-pressure chronic ulcer of right heel and midfoot with unspecified severity; I46.9 Cardiac arrest, cause unspecified; I48.2 Chronic atrial fibrillation; E86.0 Dehydration; E66.01 Morbid (severe) obesity due to excess calories; I25.10 Atherosclerotic heart disease of native coronary artery without angina pectoris; I73.9 Peripheral vascular disease, unspecified; J44.9 Chronic obstructive pulmonary disease, unspecified; M10.9 Gout, unspecified; Z86.711 Personal history of pulmonary embolism; Z95.820 Peripheral vascular angioplasty status with implants and grafts; Z95.1 Presence of aortocoronary bypass graft; Z95.5 Presence of coronary angioplasty implant and graft; Z86.718 Personal history of other venous thrombosis and embolism; J45.909 Unspecified asthma, uncomplicated; Z88.0 Allergy status to penicillin; E87.5 Hyperkalemia; E87.6 Hypokalemia; L97.519 Non-pressure chronic ulcer of other part of right foot with unspecified severity; R00.1 Bradycardia, unspecified; R74.8 Abnormal levels of other serum enzymes; G47.33 Obstructive sleep apnea (adult) (pediatric); L08.9 Local infection of the skin and subcutaneous tissue, unspecified